=== PATIENT | male | born 1955 | race Caucasian/White ===

== ENCOUNTER 2018-07-30 17:57 | Emergency (ER) | payer OTHER, SELFPAY ==
[2018-07-30 18:05] VITALS: BP 149/72; PULSE 80; RESP 14; TEMP 36.7; O2SAT 100; BMI 35.4
--- NOTE | 2018-07-30 18:13 | ED_ITS ---
HPI - Fall General Chief Complaint: Head Injury Stated Complaint: FALL AND HIT HEAD ON PIANO Time Seen by Provider: 07/30/18 18:05 Source: patient Mode of arrival: ambulatory History of Present Illness HPI Narrative: Patient is a 63-year-old male who presents after a closed head injury. He was standing on a step stool changing a light bulb he fell backwards and hit is head. No loss of consciousness some blurry vision no neck injury no numbness or tingling no vomiting. Related Data Home Medications Medication Instructions Recorded Confirmed aspirin 81 mg PO BID 07/30/18 07/30/18 clopidogrel 1 tab PO DAILY 07/30/18 07/30/18 ezetimibe 1 tab PO DAILY 07/30/18 07/30/18 fenofibrate nanocrystallized 1 tab PO BID 07/30/18 07/30/18 lisinopril 1 tab PO QPM 07/30/18 07/30/18 lisinopril [Prinivil] 40 mg PO QAM 07/30/18 07/30/18 metoprolol tartrate 1 tab PO QAM 07/30/18 07/30/18 metoprolol tartrate 1 tab PO QPM 07/30/18 07/30/18 rabeprazole [Aciphex] 1 tab PO QAM 07/30/18 07/30/18 Review of Systems Review of Systems GENERAL: Denies chills, fatigue, malaise, fever, sweats, travel HEENT: Denies sinus pain, ear pain, sore throat, difficulty swallowing, neck pain RESPIRATORY: Denies dyspnea, cough, wheezing, hemoptysis, sputum. CARDIOVASCULAR: Denies chest pain, palpitations, orthopnea, edema GASTROINTESTINAL: Denies nausea, vomiting, abdominal pain, diarrhea, constipation, melena. : Denies dysuria, frequency, incontinence, hematuria, urinary retention, flank pain. MUSCULOSKELETAL: Denies weakness, joint pain, or bony pain SKIN: Head laceration NEUROLOGIC: See HPI, denies confusion, dizziness, LOC PSYCHIATRIC: No concerning psychosocial issues. 12 point review of systems is negative except for those stated above and HPI Exam Initial Vital Signs Initial Vital Signs: Vital Signs Temperature 98.0 F 07/30/18 18:05 Pulse Rate 80 07/30/18 18:05 Respiratory Rate 14 07/30/18 18:05 Blood Pressure 149/72 H 07/30/18 18:05 Pulse Oximetry 100 07/30/18 18:05 GENERAL: Well-appearing, well-nourished and in no acute distress. HEENT: Head atraumatic left-sided temporal laceration no depressions no crepitation ,EOMI, pupils reactive, NECK: No cervical tenderness no step-offs full range of motion CARDIOVASCULAR: Regular rate and rhythm without murmurs, rubs or gallops. RESPIRATORY: Breath sounds equal bilaterally, no wheezes rales or rhonchi. ABDOMEN: Soft, nontender. Normoactive bowel sounds all 4 quadrants. No guarding or rebound. EXTREMITIES: Normal range of motion, no clubbing or edema. Neurovascularly intact NEUROLOGICAL: Alert and oriented x4.Normal gait and speech. Cranial nerves II through XII grossly intact. Good [id number]-st-[id number], good ehgo-[id number]-tmfp, strength equal bilaterally, no dysarthria or aphasia, sensation in tact to soft touch bilaterally, no visual changes, no facial droop. Radial ulnar and median nerves intact bilaterally SKIN: Warm, dry, no laceration, no petechiae, no rashes or lesions. [facility] Medical History CVA (cerebral vascular accident) (Acute) Coronary artery disease (Acute) Social History Smoking Status: Never smoker Procedures Laceration Repair Laceration 1: Site: scalp Side (If applicable): left Size (cm): 2 Description: linear Depth: simple, single layer Pre-repair: wound explored, irrigated extensively and deep structures intact Skin layer closed with: other (cecile#2) Course Orders Ordered: ED Orders 07/30/18 18:11 CT head/brain wo con Stat Vital Signs - 8 hr 07/30/18 18:05 07/30/18 19:00 Temperature 98.0 F 98.2 F Pulse Rate 80 81 Respiratory Rate 14 17 Blood Pressure 149/72 H Blood Pressure [Left Arm] 145/73 H Pulse Oximetry 100 97 MDM - Fall Imaging Data CT scan - head: Radiologist's impression: PROCEDURE: CT HEAD/BRAIN WO CON INDICATIONS: fall on ASA and plavix TECHNIQUE: Noncontrast 4.5 mm thick angled axial sections acquired from the foramen magnum to the vertex, with coronal and sagittal reformats. For radiation dose reduction, the following was used: automated exposure control, adjustment of mA and/or kV according to patient size. COMPARISON: None. FINDINGS: Image quality: Excellent. CSF spaces: Basal cisterns are patent. No extra-axial fluid collections. Ventricles are normal in size and shape. Brain: No midline shift. No intracranial masses or hemorrhage. Deng-white matter interface is normal. Skull and face: Calvarium and visualized facial bones are intact, without suspicious lesions. Sinuses: Visualized sinuses and mastoids are clear. IMPRESSION: Normal for age, source of current pain after trauma symptoms is not seen. Dictated by: Dennis Maldonado M.D. on 07/30/2018 at 18:33 Discharge Plan Departure Patient Disposition: Home Clinical Impression: Closed head injury, Laceration of head Discharge Date/Time: 07/30/18 19:11 Interventions: ED Discharge Assessment Last Done: 07/30/18 19:10 Instructions: DI for Laceration Repair -- [place], Closed Head Injury Activity Restrictions/Additional Instructions: *You have been diagnosed with head laceration, closed head injury *What to do: Have cecile removed in 5-7 days either by walk-in clinic, primary doctor or the emergency department. *Continue to take medications as directed -Tylenol 650 mg every 4-6 hours as needed pain *Follow up with your primary care provider in 2-3 days *Return to ER if you should have persistent vomiting, increasing headache, redness, pus, swelling or any new, worsening or concerning symptoms Prescriptions: No Action rabeprazole [Aciphex] 20 mg tablet,delayed release (DR/EC) 1 tab PO QAM RF: 0 lisinopril 20 mg tablet 1 tab PO QPM RF: 0 clopidogrel 75 mg tablet 1 tab PO DAILY RF: 0 aspirin 81 mg Tablet,Delayed Release (Dr/Ec) 81 mg PO BID RF: 0 metoprolol tartrate 50 mg tablet 1 tab PO QAM RF: 0 ezetimibe 10 mg tablet 1 tab PO DAILY RF: 0 metoprolol tartrate 25 mg tablet 1 tab PO QPM RF: 0 fenofibrate nanocrystallized 48 mg tablet 1 tab PO BID RF: 0 lisinopril [Prinivil] 20 MG tablet 40 mg PO QAM RF: 0 Referrals: Raymond English MD [Primary Care Provider] -
[2018-07-30 19:00] VITALS: BP 145/73; PULSE 81; RESP 17; TEMP 36.8; O2SAT 97
== END 2018-07-30 19:11 | disposition home or self-care (01) ==
PROVIDERS: Emergency Provider Emergency Medicine; Family Provider Family Medicine; PCP Family Medicine
DX: S09.90XA Unspecified injury of head, initial encounter (principal); S01.01XA Laceration without foreign body of scalp, initial encounter; W19.XXXA Unspecified fall, initial encounter
CPT/HCPCS: 12001; 70450; 99282; 99284

== ENCOUNTER → 2020-08-19 16:08 | Outpatient (CLI) | payer OTHER, SELFPAY ==
[2020-08-19] MEDS: COVID-19 VACC #1, MRNA(MOD) 100 MCG/0.5 ML VIAL IM (16:19)
== END ==
PROVIDERS: Visit Provider Internal Medicine
DX: Z23 Encounter for immunization (principal)
CPT/HCPCS: 0011A; 91301

== ENCOUNTER → 2020-09-16 12:17 | Outpatient (CLI) | payer OTHER, SELFPAY ==
[2020-09-16] MEDS: COVID-19 VACC #2, MRNA(MOD) 100 MCG/0.5 ML VIAL IM (12:38)
== END ==
PROVIDERS: Visit Provider Internal Medicine
DX: Z23 Encounter for immunization (principal)
CPT/HCPCS: 0012A; 91301

== ENCOUNTER → 2021-03-15 15:10 | Outpatient (CLI) | payer OTHER, SELFPAY ==
[2021-03-15 15:55] LABS: Alanine Aminotransferase 25 IU/L (<50); Albumin 4.1 g/dL (3.5-5.0); Albumin Globulin Ratio 1.3 (1.0-2.8); Alkaline Phosphatase 79 U/L (38-126); Aspartate Aminotransferase 47 IU/L (17-59); BUN Creatinine Ratio 11.1 (6-22); Bilirubin Total 0.7 mg/dL (0.2-1.3); Blood Urea Nitrogen 12 mg/dL (9-20); Calcium 9.6 mg/dL (8.4-10.2); Carbon Dioxide 28 mmol/L (22-32); Chloride 102 mmol/L (98-107); Cholesterol 200 mg/dL (140-199); Estimated Glomerular Filt Rate > 60.0 mL/min (>60); Globulin 3.1 g/dL (1.7-4.1); Glucose 125 mg/dL (80-110); HDL Cholesterol 61 mg/dL (40-60); HEMOLYSIS < 15 (0-50); LDL Cholesterol Calculated 108 mg/dL (<100); Potassium 3.8 mmol/L (3.4-5.1); Sodium 138 mmol/L (137-145); Total Protein 7.2 g/dL (6.3-8.2); Triglycerides 154 mg/dL (35-150)
[2021-03-15 16:25] LABS: Prostate Specific Antigen Scrn 0.503 ng/mL (0.1-4.0)
== END ==
PROVIDERS: PCP Internal Medicine; Referring Provider Internal Medicine; Visit Provider Internal Medicine
DX: E78.2 Mixed hyperlipidemia (principal); I10 Essential (primary) hypertension; I25.10 Atherosclerotic heart disease of native coronary artery without angina pectoris; Z12.5 Encounter for screening for malignant neoplasm of prostate
CPT/HCPCS: 36415; 80053; 80061; G0103

== ENCOUNTER → 2021-06-02 11:41 | Outpatient (CLI) | payer OTHER, SELFPAY ==
[2021-06-02] MEDS: COVID-19 VACC #3, MRNA(MOD) 50 MCG/0.25 ML VIAL IM (11:48)
== END ==
PROVIDERS: PCP Internal Medicine; Visit Provider Internal Medicine
DX: Z23 Encounter for immunization (principal)
CPT/HCPCS: 0013A; 91301

== ENCOUNTER → 2021-07-20 12:15 | Outpatient (CLI) | payer OTHER, SELFPAY ==
--- NOTE | 2021-07-20 12:16 | DI.MRI.S_ITS ---
PROCEDURE: MR BRAIN (IAC) WWO CON INDICATIONS: Vertigo, ataxia TECHNIQUE: Noncontrast sagittal T1 spin echo, axial FLAIR, axial gradient echo, axial diffusion and ADC through the brain. Axial thin-slice 3D CISS, coronal TruFISP, axial T1 spin echo with fat saturation through the internal auditory canals. After the administration of contrast, thin slice axial and coronal T1 spin echo with fat saturation through the internal auditory canals, and axial T1 spin echo with fat saturation through the brain. COMPARISON: None. FINDINGS: Image quality: Excellent. Cerebellopontine angles: No cerebellopontine angle masses. Inner ear structures appear normally formed. No suspicious enhancement in the internal auditory canal or along the course of the 7th cranial nerve. CSF spaces: Ventricles are normal in size and shape. No extra-axial fluid collections. Basal cisterns are patent. Brain: No intracranial bleeds or mass effects. There is mild, diffuse cerebral volume loss. There are moderate to severe periventricular and subcortical white matter chronic microvascular ischemic changes. Deng-white matter interface is intact. No abnormal intracranial enhancement. Diffusion weighted images demonstrate no acute ischemic insults. Brainstem appears normal. Normal intravascular flow voids are present. Dural sinuses demonstrate normal postcontrast enhancement. Skull and face: Calvarial marrow signal is normal. Orbits appear normal. Sinuses: Severe mucosal thickening noted in the left maxillary sinus and the left ethmoid air cells. Mild mucosal thickening noted in the right maxillary sinus. The mastoids are clear. IMPRESSION: 1. No evidence of vestibular schwannoma. 2. No abnormal intracranial mass or mass effect. 3. No areas of acute or chronic infarction. 4. No suspicious postcontrast enhancement. 5. Severe chronic left maxillary and left ethmoid air cell sinusitis. Mild chronic right maxillary sinusitis. Dictated by: Aletha Amos MD, PhD on 07/20/2021 at 13:48 Approved by: Aletha Amos MD, PhD on 07/20/2021 at 13:51
== END ==
PROVIDERS: PCP Internal Medicine; Referring Provider Internal Medicine; Visit Provider Internal Medicine
DX: J32.8 Other chronic sinusitis (principal); R42 Dizziness and giddiness
CPT/HCPCS: 70553; A9579

== ENCOUNTER → 2021-08-28 12:55 | Outpatient (CLI) | payer OTHER, SELFPAY ==
--- NOTE | 2021-08-28 | DI.CT.S_ITS ---
PROCEDURE: CT SINUS SCREEN WO CON INDICATIONS: Chronic pansinusitis TECHNIQUE: Noncontrast 3.0 mm axial images acquired from the frontal sinuses to the mid-sella, with coronal and sagittal reformats. For radiation dose reduction, the following was used: automated exposure control, adjustment of mA and/or kV according to patient size. COMPARISON: [facility], MR, MR BRAIN (IAC) WWO CON, 07/20/2021, 12:34. [facility], CT, CT HEAD/BRAIN WO CON, 07/30/2018, 18:14. FINDINGS: Image quality: Excellent. Maxillary Sinuses: There is moderate to prominent left maxillary sinus mucosal thickening. Mild mucosal thickening is seen involving the inferior right maxillary sinus. There is demineralization of the medial smith of the maxillary sinuses, left worse than right. There is remodeling with wall thickening seen of the other smith of the left maxillary sinus. Ethmoid Air Cells: Mild mucosal thickening is seen within the ethmoid air cells, particularly on the left posteriorly. There is mild demineralization seen of the ethmoid air cell septations. Sphenoid Sinuses: No bony remodeling or destruction. Sinuses are clear. Frontal Sinuses: No bony remodeling or destruction. Moderate mucosal thickening is seen involving the inferomedial right frontal sinus. Ostiomeatal Complexes: Ostiomeatal complexes are patent, yet there constitutionally narrowed and further narrowed by soft tissue thickening, particularly on the left. There are right-sided Brianna cells. Miscellaneous: Visualized intra-orbital contents are normal. No ryann bullosa or paradoxical turbinate curvature. There is minimal leftward nasal septal deviation. IMPRESSION: Paranasal sinus disease is seen, which is overall worst involving the left maxillary sinus. Areas of bony remodeling are seen, which are consistent with chronic sinusitis. Narrowed ostiomeatal complexes. Brianna air cells are seen on the right. Dictated by: Marcelo Lopez M.D. on 08/28/2021 at 12:51 Approved by: Marcelo Lopez M.D. on 08/28/2021 at 12:54
== END ==
PROVIDERS: PCP Internal Medicine; Referring Provider Otolaryngology; Visit Provider Otolaryngology
DX: J32.4 Chronic pansinusitis (principal); R42 Dizziness and giddiness
CPT/HCPCS: 70486

== ENCOUNTER → 2022-08-01 16:31 | Outpatient (CLI) | payer OTHER, SELFPAY ==
--- NOTE | 2022-08-01 16:32 | DI.MRI.S_ITS ---
PROCEDURE: MR HEAD/BRAIN WO CON INDICATIONS: chronic dizziness/h/o stroke TECHNIQUE: Noncontrast axial T1 spin echo, axial T2 fast spin echo, sagittal and axial FLAIR, coronal T2 fast spin echo, axial gradient echo, axial diffusion and ADC through the brain. COMPARISON: None. FINDINGS: Image quality: Excellent. CSF Spaces: Basal cisterns are patent. No extra-axial fluid collections. Ventricles are normal in size and shape. Brain: No intracranial masses or hemorrhage. Deng/white matter interface is normal. Brainstem appears normal. Diffusion-weighted sequence is unremarkable without evidence of acute infarct. Normal intravascular flow voids are present. Moderate atrophy and white matter chronic ischemic change. Old left thalamic lacunar infarct noted Skull and face: Calvarium has normal marrow signal. Orbits appear normal. Sinuses: Chronic left maxillary mucosal thickening with osseous wall thickening IMPRESSION: Moderate atrophy and chronic ischemic change without acute infarct, hemorrhage or mass lesion. Old left thalamic lacunar infarct contains old blood products. Chronic left maxillary sinus disease Approved by: Ervin Elizalde M.D. on 08/01/2022 at 19:21
== END ==
PROVIDERS: PCP Internal Medicine; Referring Provider Internal Medicine; Visit Provider Internal Medicine
DX: I69.30 Unspecified sequelae of cerebral infarction (principal); R42 Dizziness and giddiness; J32.0 Chronic maxillary sinusitis
CPT/HCPCS: 70551

== ENCOUNTER → 2022-09-07 14:19 | Outpatient (CLI) | payer OTHER, SELFPAY ==
--- NOTE | 2022-09-07 | DI.RAD.S_ITS ---
PROCEDURE: XR THORACIC SPINE 2V INDICATIONS: Low back pain, unspecified TECHNIQUE: 3 views of the thoracic spine were acquired. COMPARISON: None. FINDINGS: Bones: No fractures or dislocations. No suspicious bony lesions. 12 pairs of ribs are noted, and appear intact where visualized. Bridging osteophytes are seen over the upper and middle thirds of the thoracic spine. No compression fracture is associated. Soft tissues: No paravertebral stripe thickening. 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 No fracture or subluxation associated. Dictated by: Dennis Maldonado M.D. on 09/07/2022 at 16:17 Approved by: Dennis Maldonado M.D. on 09/07/2022 at 16:18
--- NOTE | 2022-09-07 | DI.RAD.S_ITS ---
PROCEDURE: XR PELVIS 1-2V INDICATIONS: Low back pain, unspecified TECHNIQUE: 1 view(s) of the pelvis acquired. COMPARISON: None. FINDINGS: Bilateral nonuniform joint space narrowing with associated osteophytosis. Bones: No fractures or dislocations. No suspicious bony lesions. Soft tissues: Visualized bowel gas pattern is normal. No suspicious soft tissue calcifications. IMPRESSION: Mild bilateral hip osteoarthritis. Dictated by: Antonio Valdez M.D. on 09/07/2022 at 15:16 Approved by: Antonio Valdez M.D. on 09/07/2022 at 15:16
--- NOTE | 2022-09-07 | DI.RAD.S_ITS ---
PROCEDURE: XR LUMBAR SPINE 2-3V INDICATIONS: Low back pain, unspecified TECHNIQUE: 3 views of the lumbar spine were acquired. COMPARISON: None. FINDINGS: Bones: 5 bda-ryg-dahankf vertebrae are present. There is normal bony alignment. No vertebral body compression fractures. No suspicious bony lesions. Note is made of moderate degenerative disc disease at L1-L2 and mild degenerative disc disease through the lumbosacral spine and lumbosacral junction more inferiorly. There is progressively greater facet osteoarthritis from L3 through S1, becoming moderately severe at L5-S1. Soft tissues: Overlying bowel gas pattern is normal. No suspicious soft tissue calcifications. IMPRESSION: Mild to moderately severe degenerative disc disease and facet osteoarthritis as discussed in detail by level above. No trauma found, no compression fracture is seen and no subluxation identified. Spinal stenosis may be present at L5-S1. Dictated by: Dennis Maldonado M.D. on 09/07/2022 at 16:16 Approved by: Dennis Maldonado M.D. on 09/07/2022 at 16:17
== END ==
PROVIDERS: PCP Internal Medicine; Referring Provider Chiropractor; Visit Provider Chiropractor
DX: M16.0 Bilateral primary osteoarthritis of hip (principal); M51.34 Other intervertebral disc degeneration, thoracic region; M51.36 Other intervertebral disc degeneration, lumbar region; M51.37 Other intervertebral disc degeneration, lumbosacral region; M47.816 Spondylosis without myelopathy or radiculopathy, lumbar region; M47.817 Spondylosis without myelopathy or radiculopathy, lumbosacral region; M54.50 Low back pain, unspecified
CPT/HCPCS: 72070; 72100; 72170

== ENCOUNTER 2023-03-26 09:48 | Emergency (ER) | payer OTHER, SELFPAY ==
[2023-03-26] VITALS (52 sets, daily range): BP systolic 124–167; BP diastolic 63–95; PULSE 75–101; RESP 13–27; TEMP 36.5; O2SAT 91–98; BMI 32.9
--- NOTE | 2023-03-26 09:49 | DI.CT.S_ITS ---
PROCEDURE: CT HEAD/BRAIN WO CON INDICATIONS: AMS with facial droop TECHNIQUE: Noncontrast 4.5 mm thick angled axial sections acquired from the foramen magnum to the vertex, with coronal and sagittal reformats. For radiation dose reduction, the following was used: automated exposure control, adjustment of mA and/or kV according to patient size. COMPARISON: None. FINDINGS: Image quality: Mild streak artifact can be seen through the skull base. CSF spaces: Basal cisterns are patent. No extra-axial fluid collections. The ventricles are symmetric in size and shape. Brain: No intracranial bleeds or masses. There is cerebral volume loss for age, with resultant ventricular and sulcal prominence. There are periventricular and deep white matter chronic small vessel ischemic changes. There is intracranial internal carotid artery atherosclerosis. Skull and face: Calvarium and visualized facial bones appear intact, without suspicious lesions. Sinuses: There is moderate mucosal thickening within the left maxillary sinus. Mild mucosal thickening is seen elsewhere within the paranasal sinuses. No abnormal fluid is seen within the mastoid air cells. IMPRESSION: Noncontrast head CT within normal limits for age. If there is strong clinical suspicion for an acute stroke, please consider a brain MRI for further evaluation, as it is more sensitive (assuming that there is no contraindication to MRI). Dictated by: Marcelo Lopez M.D. on 03/26/2023 at 9:14 Approved by: Marcelo Lopez M.D. on 03/26/2023 at 9:15
--- NOTE | 2023-03-26 09:53 | DI.CT.S_ITS ---
PROCEDURE: CT ANGIO HEAD AND NECK INDICATIONS: Altered mental status and facial droop TECHNIQUE: After the administration of intravenous contrast, 1 mm thick sections acquired from the aortic arch through the Traer of Gabriel. 3-dimensional xmnwagd-qxozvzxly-nvctixlrkb (MIP) and/or volume rendering reformats were acquired of the central intracranial vasculature and neck separately. For radiation dose reduction, the following was used: automated exposure control, adjustment of mA and/or kV according to patient size. COMPARISON: [facility], CT, CT HEAD/BRAIN WO CON, 03/26/2023, 9:59. [facility], MR, MR HEAD/BRAIN WO CON, 08/01/2022, 16:48. [facility], CT, CT HEAD/BRAIN WO CON, 07/30/2018, 18:14. [facility], CR, XR CHEST 1V, 03/26/2023, 10:09. FINDINGS: Image quality: Diagnostic. BRAIN: CSF spaces: Ventricles are normal in size and shape. Basal cisterns are patent. No extra-axial fluid collections. Brain: No significant abnormality of the brain can be seen. Skull and face: Calvarium and facial bones appear intact, without suspicious lesions. Orbits appear normal. Sinuses: Focal left maxillary sinus disease is seen. Milder paranasal sinus disease is seen elsewhere. HEAD CT ANGIOGRAPHY: Anterior circulation: Intracranial internal carotid arteries are normal in size and flow. The flow within the paired anterior cerebral arteries is normal and symmetric. The flow within the middle cerebral arteries is normal and symmetric. The anterior communicating artery is seen. No aneurysms are seen. Posterior circulation: Note is made of bilateral type origins of the posterior cerebral arteries, with an associated diminutive basilar artery. The flow within the posterior cerebral arteries is normal and symmetric. The distal vertebral arteries are overall small in size, yet otherwise unremarkable. No aneurysms are seen. NECK CT ANGIOGRAPHY: Carotid system: The great vessels demonstrate a conventional anatomy as they arise from the aortic arch. The origins of the common carotid arteries appear patent. The common carotid arteries demonstrate normal caliber and courses. The bifurcation regions demonstrate dense atherosclerotic calcification and irregularity. There is approximately 90% narrowing seen involving the right proximal internal carotid artery. 70-80% narrowing can be seen involving the left proximal internal carotid artery. The more distal internal carotid arteries demonstrate normal course and caliber. Posterior circulation: The origins of the vertebral arteries both appear widely patent. The more superior extracranial portions of both vertebral arteries also demonstrate normal courses and calibers. They join to form a normal appearing basilar artery. Soft tissues: Visualized neck soft tissues demonstrate no suspicious abnormalities. Bones: No suspicious bony lesions. Visualized cervical spine appears normally aligned. At least moderate cervical spine degenerative change can be seen. IMPRESSION: No significant intracranial arterial abnormality is seen. Significant atherosclerotic change can be seen involving the carotid bifurcation regions, with approximately 90% narrowing on the right and 70-80% narrowing on the left. Additional findings: Focal left maxillary sinus disease At least moderate cervical spine degenerative change Note: Case discussed by telephone with Dr. Blair at 9:23 a.m. [place] time on March 26, 2023. Any quantitative measurements of stenosis were performed using NASCET criteria. Dictated by: Marcelo Lopez M.D. on 03/26/2023 at 9:17 Approved by: Marcelo Lopez M.D. on 03/26/2023 at 9:25
--- NOTE | 2023-03-26 09:55 | DI.RAD.S_ITS ---
PROCEDURE: XR CHEST 1V INDICATIONS: Eval for pneumonia TECHNIQUE: One view of the chest was acquired. COMPARISON: [facility], , CHEST 1 VIEW, 07/19/2015, 11:39. FINDINGS: Surgical changes and devices: None. Lungs and pleura: Blunting the left costophrenic angle. Heart size is enlarged, and mild vascular congestion is all accentuated by low lung volumes. Osseous structures normal. Right lung and pleural space clear IMPRESSION: Cardiomegaly and mild vascular congestion, small left pleural effusion associated with minimal left basilar atelectasis and or infiltrate. Low lung volumes Approved by: Ervin Elizalde M.D. on 03/26/2023 at 10:14
[2023-03-26 10:01] LABS: Add Manual Diff / Slide Review NO; Basophils Absolute Auto 100 /uL (0-100); Basophils Percent Auto 0.8 % (0-2); Eosinophils Absolute Auto 100 /uL (0-450); Eosinophils Percent Auto 1.6 % (2-4); Hematocrit 39.7 % (41-53); Hemoglobin 14.2 g/dL (13.5-17.5); Lymphocytes Absolute Auto 1500 /uL (1100-4500); Lymphocytes Percent Auto 22.4 % (25-40); Mean Corpuscular HGB Conc 35.8 % (30-36); Mean Corpuscular Hemoglobin 35.6 PG (26-34); Mean Corpuscular Volume 99.2 fL (80-100); Monocytes Absolute Auto 600 /uL (0-900); Monocytes Percent Auto 9.3 % (3-14); Neutrophils Absolute Auto 4500 /uL (1500-7000); Neutrophils Percent Auto 65.9 % (50-75); Platelet Count 302 X10^3/uL (150-400); Red Cell Distribution Width 13.1 % (11.6-14.8); White Blood Cell Count 6.8 X10^3/uL (4.5-11.0)
--- NOTE | 2023-03-26 10:05 | ED_ITS ---
HPI - General Adult General Chief complaint: Neuro Symptoms/Deficit Stated complaint: L facial droop, weakness Time Seen by Provider: 03/26/23 09:49 Source: patient, family and EMS Mode of arrival: EMS Limitations: no limitations History of Present Illness HPI narrative: 68-year-old male was brought in by EMS for evaluation of weakness and a left- sided facial droop. His last known normal was last evening. He does have a history of a head bleed. Not on anticoagulation. Review his medical record shows that he has had quite a bit of issues with ataxia. Reported by EMS that he was found this morning by his and home health nurse crawling to the bathroom. Is reported by EMS he had a left-sided facial droop. Upon arrival patient went directly to the CT scanner. When I evaluated the patient he was al ert and oriented to person and place. He states that this morning he woke up and had to urinate. He states that he rolled out of bed. He was too weak to make it to the bathroom which is why he was crawling. He states he did not hit his head. He states he went to bed last night feeling fine. His only complaint today is that he is very tired and weak. Related Data Home Medications Medication Instructions Recorded Confirmed aspirin 81 mg tablet,delayed 81 mg PO BID 07/30/18 03/26/23 release evolocumab 420 mg/3.5 mL 420 mg SUBCUT QMONTH 02/06/21 03/26/23 subcutaneous wearable injector (Repatha Pushtronex) psyllium husk [Fiber (psyllium 1 cap PO DAILY 02/06/21 03/26/23 husk)] metoprolol tartrate 25 mg tablet 25 mg PO DAILY 10/23/21 03/26/23 Lactobacillus cap PO DAILY 03/26/23 acidophilus-Bifidobac.animalis 2.5 billion cell capsule (Daily Probiotic) calcium carbonate 500 mg calcium 500 mg PO PRN PRN Heartburn 03/26/23 03/26/23 (1,250 mg) chewable tablet diazepam 5 mg tablet 5 mg PO PRN PRN anxiety 03/26/23 03/26/23 docusate sodium 50 mg tablet 50 mg PO PRN PRN Constipation 03/26/23 03/26/23 lisinopril 20 mg tablet 20 mg PO DAILY 03/26/23 03/26/23 vitamin B complex (B 1 tab PO DAILY 03/26/23 03/26/23 Complex-Vitamin B12 tablet) Previous Rx's Medication Instructions Recorded fenofibrate nanocrystallized 48 mg 48 mg PO BID #180 tabs 10/23/21 tablet nitroglycerin 0.4 mg sublingual 0.4 mg sublingual Q5M PRN chest 07/26/22 tablet pain #90 tabs AcipHex 20 mg tablet,delayed 20 mg PO DAILY #90 tabs 03/21/23 release (rabeprazole) Allergies Allergy/AdvReac Type Severity Reaction Status Date / Time [id number] Reductase AdvReac Severe unknown Verified 09/07/22 13:49 Inhibitor Review of Systems Review of Systems ROS Unobtainable: All systems reviewed & are unremarkable except as noted in HPI and below Patient History Medical History Cerebellar ataxia Coronary artery disease Coronary artery disease involving hoopa coronary artery of hoopa heart without angina pectoris Essential hypertension GERD without esophagitis Irritable bowel syndrome Mixed hyperlipidemia Personal history of stroke with current residual effects (~2005) Surgical History (Updated 02/14/21 @ 07:40 by Uvaldo Cantor MD) H/O heart artery stent (~08/2016) S/P foot surgery (~1966) S/P tonsillectomy (~1962) Social History Smoking Status: Former smoker Smoking Status: Former smoker alcohol intake frequency: 0-2 drinks per day Substance Use Type: does not use Exam Initial Vital Signs Initial Vital Signs: Vital Signs Pulse Rate 82 03/26/23 09:59 Blood Pressure 139/74 03/26/23 09:59 Pulse Oximetry 97 03/26/23 09:59 Const General: comfortable and No ill appearing HENMT Face and sinus: normal facial exam Mouth: No moist mucous membranes (Dry mucous membranes) Eyes Pupils: PERRL Resp Effort & Inspection: normal respiratory effort Auscultation: clear to auscultation bilaterally Cardio Rate: regular rate Rhythm: regular rhythm GI Inspection: normal to inspection and non-distended Palpation: soft Skin General: no rashes or lesions noted Neuro Other: Patient is alert oriented x3. He is able to speak in his speaking clearly. He does follow commands. Has a GCS of 15. When asked to perform the NIH tasks patient states he could not as he was feeling so weak. He states he could not smile. He did squeeze with both of his hands but stated that he was too weak to lift his arms up off the bed. It was also too weak to lift his legs up off the bed. He did withdraw to painful stimuli. His symptoms are equal bilateral. Extrem Other: No gross deformities Scores GCS Christiano coma scale eye opening: Spontaneous [place] coma scale verbal response: Orientated Christiano coma scale motor response: Obey commands Christiano coma scale total score: 15 Course Orders Ordered: ED Orders 03/26/23 09:49 CT head/brain wo con Stat 03/26/23 09:51 Acetaminophen Stat Complete Blood Count AUTO DIFF Stat Comprehensive Metabolic Panel Stat Ethanol (ETOH) Stat Lipase Stat PTT Partial Thromboplastin Chetan Stat Prothrombin Time INR Stat Salicylate Stat Troponin & CK Cardiac Panel Stat 03/26/23 09:53 CT angio head and neck Stat 03/26/23 09:55 XR chest 1V Stat EKG-12 Lead Stat 03/26/23 10:13 Respiratory Panel (Film Array) Stat 03/26/23 11:48 MR head/brain wo con Stat 03/26/23 12:36 [place] [facility] [place] [facility] Stat 03/26/23 12:37 [place] [facility] [place] Stat 03/26/23 13:30 Urine Drug Screen, Rapid Stat Discontinued Medications Diazepam (Diazepam 10 Mg/2 Ml Syringe) 2 mg IV NOW ONE Stop: 03/26/23 12:46 Last Admin: 03/26/23 12:55 Dose: Not Given Documented By: NR Sodium Chloride (Normal Saline 0.9%) 1,000 mls @ 1,000 mls/hr IV BOLUS ONE Stop: 03/26/23 11:24 Last Infusion: 03/26/23 11:49 Dose: 0 mls/hr Documented By: Admin: 03/26/23 10:44 Dose: 1,000 mls/hr Documented By: NR Vital Signs Vital signs: Vital Signs - 8 hr 03/26/23 10:00 03/26/23 09:59 03/26/23 09:59 Temperature 97.7 F Pulse Rate 80 82 Respiratory Rate 21 Blood Pressure 139/74 139/74 Pulse Oximetry 97 97 Oxygen Delivery Method Nasal Cannula Oxygen Flow Rate 6 03/26/23 10:00 03/26/23 10:00 03/26/23 10:05 Temperature Pulse Rate 80 Respiratory Rate 20 Blood Pressure 130/66 130/69 Pulse Oximetry 97 Oxygen Delivery Method Oxygen Flow Rate 03/26/23 10:05 03/26/23 10:10 03/26/23 10:10 Temperature Pulse Rate 83 82 Respiratory Rate 22 20 Blood Pressure 130/72 Pulse Oximetry 97 97 Oxygen Delivery Method Oxygen Flow Rate 03/26/23 10:14 03/26/23 10:15 03/26/23 10:15 Temperature Pulse Rate 80 83 Respiratory Rate 17 20 Blood Pressure 141/72 H Pulse Oximetry 97 96 Oxygen Delivery Method Oxygen Flow Rate 03/26/23 10:20 03/26/23 10:20 03/26/23 10:25 Temperature Pulse Rate 80 Respiratory Rate 19 Blood Pressure 130/70 133/71 Pulse Oximetry 96 Oxygen Delivery Method Oxygen Flow Rate 03/26/23 10:25 03/26/23 10:30 03/26/23 10:30 Temperature Pulse Rate 79 80 Respiratory Rate 20 21 Blood Pressure 131/65 Pulse Oximetry 95 95 Oxygen Delivery Method Oxygen Flow Rate 03/26/23 10:35 03/26/23 10:35 03/26/23 10:40 Temperature Pulse Rate 79 78 Respiratory Rate 18 19 Blood Pressure 129/67 Pulse Oximetry 97 95 Oxygen Delivery Method Oxygen Flow Rate 03/26/23 10:40 03/26/23 10:45 03/26/23 10:45 Temperature Pulse Rate 79 Respiratory Rate 19 Blood Pressure 124/68 124/66 Pulse Oximetry 95 Oxygen Delivery Method Oxygen Flow Rate 03/26/23 10:50 03/26/23 10:50 03/26/23 10:55 Temperature Pulse Rate 78 Respiratory Rate 17 Blood Pressure 126/66 129/67 Pulse Oximetry 94 Oxygen Delivery Method Oxygen Flow Rate 03/26/23 10:55 03/26/23 11:00 03/26/23 11:00 Temperature Pulse Rate 78 78 Respiratory Rate 19 19 Blood Pressure 132/69 Pulse Oximetry 95 96 Oxygen Delivery Method Oxygen Flow Rate 03/26/23 11:05 03/26/23 11:05 03/26/23 11:10 Temperature Pulse Rate 82 Respiratory Rate 27 H Blood Pressure 137/71 138/73 Pulse Oximetry 98 Oxygen Delivery Method Oxygen Flow Rate 03/26/23 11:10 03/26/23 11:15 03/26/23 11:15 Temperature Pulse Rate 77 79 Respiratory Rate 23 23 Blood Pressure 138/75 Pulse Oximetry 96 95 Oxygen Delivery Method Oxygen Flow Rate 03/26/23 11:20 03/26/23 11:20 03/26/23 11:25 Temperature Pulse Rate 76 Respiratory Rate 20 Blood Pressure 130/63 136/73 Pulse Oximetry 96 Oxygen Delivery Method Oxygen Flow Rate 03/26/23 11:25 03/26/23 11:30 03/26/23 11:30 Temperature Pulse Rate 78 83 Respiratory Rate 22 21 Blood Pressure 153/75 H Pulse Oximetry 96 95 Oxygen Delivery Method Oxygen Flow Rate 03/26/23 11:35 03/26/23 11:35 03/26/23 11:40 Temperature Pulse Rate 81 Respiratory Rate 20 Blood Pressure 150/86 H 156/95 H Pulse Oximetry 98 Oxygen Delivery Method Oxygen Flow Rate 03/26/23 11:40 03/26/23 11:45 03/26/23 11:45 Temperature Pulse Rate 84 84 Respiratory Rate 14 17 Blood Pressure 165/82 H Pulse Oximetry 98 98 Oxygen Delivery Method Oxygen Flow Rate 03/26/23 11:51 03/26/23 11:51 03/26/23 11:55 Temperature Pulse Rate 78 Respiratory Rate 18 Blood Pressure 142/70 H 139/65 Pulse Oximetry 98 Oxygen Delivery Method Oxygen Flow Rate 03/26/23 11:55 03/26/23 12:00 03/26/23 12:00 Temperature Pulse Rate 76 77 Respiratory Rate 17 19 Blood Pressure 130/69 Pulse Oximetry 97 96 Oxygen Delivery Method Oxygen Flow Rate 03/26/23 12:05 03/26/23 12:05 03/26/23 12:10 Temperature Pulse Rate 75 Respiratory Rate 17 Blood Pressure 133/68 146/75 H Pulse Oximetry 96 Oxygen Delivery Method Oxygen Flow Rate 03/26/23 12:10 03/26/23 12:15 03/26/23 12:15 Temperature Pulse Rate 82 78 Respiratory Rate 13 16 Blood Pressure 150/81 H Pulse Oximetry 97 95 Oxygen Delivery Method Oxygen Flow Rate 03/26/23 12:20 03/26/23 12:20 03/26/23 12:24 Temperature Pulse Rate 82 79 Respiratory Rate 25 H 20 Blood Pressure 149/84 H Pulse Oximetry 96 97 Oxygen Delivery Method Oxygen Flow Rate 03/26/23 12:25 03/26/23 12:25 03/26/23 12:30 Temperature Pulse Rate 75 Respiratory Rate 18 Blood Pressure 141/82 H 161/86 H Pulse Oximetry 97 Oxygen Delivery Method Oxygen Flow Rate 03/26/23 12:30 03/26/23 12:35 03/26/23 12:35 Temperature Pulse Rate 79 82 Respiratory Rate 19 18 Blood Pressure 150/79 H Pulse Oximetry 96 94 Oxygen Delivery Method Oxygen Flow Rate 03/26/23 12:40 03/26/23 12:40 03/26/23 12:45 Temperature Pulse Rate 83 Respiratory Rate 22 Blood Pressure 147/81 H 167/86 H Pulse Oximetry 93 Oxygen Delivery Method Oxygen Flow Rate 03/26/23 12:45 03/26/23 12:50 03/26/23 12:50 Temperature Pulse Rate 81 81 Respiratory Rate 22 18 Blood Pressure 151/77 H Pulse Oximetry 94 93 Oxygen Delivery Method Oxygen Flow Rate 03/26/23 13:35 03/26/23 13:36 03/26/23 13:36 Temperature Pulse Rate 81 83 Respiratory Rate Blood Pressure 128/77 Pulse Oximetry 93 93 Oxygen Delivery Method Oxygen Flow Rate 03/26/23 13:40 03/26/23 13:40 03/26/23 13:45 Temperature Pulse Rate 81 Respiratory Rate Blood Pressure 138/76 146/79 H Pulse Oximetry 93 Oxygen Delivery Method Oxygen Flow Rate 03/26/23 13:45 03/26/23 13:50 03/26/23 13:50 Temperature Pulse Rate 89 81 Respiratory Rate Blood Pressure 153/83 H Pulse Oximetry 94 93 Oxygen Delivery Method Oxygen Flow Rate 03/26/23 13:55 03/26/23 13:55 03/26/23 14:08 Temperature Pulse Rate 81 79 Respiratory Rate Blood Pressure 152/80 H Pulse Oximetry 93 94 Oxygen Delivery Method Oxygen Flow Rate 03/26/23 14:09 03/26/23 14:09 03/26/23 14:30 Temperature Pulse Rate 84 Respiratory Rate Blood Pressure 146/69 H 129/66 Pulse Oximetry 93 Oxygen Delivery Method Oxygen Flow Rate 03/26/23 14:30 03/26/23 15:00 03/26/23 15:00 Temperature Pulse Rate 79 80 Respiratory Rate Blood Pressure 130/67 Pulse Oximetry 93 91 Oxygen Delivery Method Oxygen Flow Rate 03/26/23 15:30 03/26/23 15:30 03/26/23 16:00 Temperature Pulse Rate 79 Respiratory Rate Blood Pressure 142/73 H 152/77 H Pulse Oximetry 91 Oxygen Delivery Method Oxygen Flow Rate 03/26/23 16:00 03/26/23 16:30 03/26/23 16:30 Temperature Pulse Rate 86 86 Respiratory Rate Blood Pressure 162/81 H Pulse Oximetry 92 94 Oxygen Delivery Method Oxygen Flow Rate 03/26/23 17:55 Temperature Pulse Rate 101 H Respiratory Rate Blood Pressure 163/92 H Pulse Oximetry 94 Oxygen Delivery Method Room Air Oxygen Flow Rate Medical Decision Making Medical Records Medical records reviewed: Yes I reviewed the patient's medical records. Lab Data Lab results reviewed: Yes I reviewed the patient's lab results. 03/26/23 09:51 03/26/23 09:51 Labs: Lab Results 03/26/23 03/26/23 03/26/23 Range/Units 09:51 09:51 09:51 WBC 6.8 (4.5-11.0) X10^3/uL RBC 4.00 L (4.5-5.9) X10^6/uL Hgb 14.2 (13.5-17.5) g/dL Hct 39.7 L (41-53) % MCV 99.2 (80-100) fL MCH 35.6 H (26-34) PG MCHC 35.8 (30-36) % RDW 13.1 (11.6-14.8) % Plt Count 302 (150-400) X10^3/uL Neut % (Auto) 65.9 (50-75) % Lymph % (Auto) 22.4 L (25-40) % Jenkins % (Auto) 9.3 (3-14) % Eos % (Auto) 1.6 L (2-4) % Baso % (Auto) 0.8 (0-2) % Neut # (Auto) 4500 (7977-5843) /uL Lymph # (Auto) 1500 (7906-4709) /uL Jenkins # (Auto) 600 (0-900) /uL Eos # (Auto) 100 (0-450) /uL Baso # (Auto) 100 (0-100) /uL PT 11.9 (10.1-12.7) SECONDS INR 1.0 (0.9-1.3) APTT 28 (26-36) SECONDS Sodium 138 (137-145) mmol/L Potassium 3.9 (3.4-5.1) mmol/L Chloride 101 (98-107) mmol/L Carbon Dioxide 23 (22-32) mmol/L BUN 9 (9-20) mg/dL Creatinine 0.89 (0.66-1.25) mg/dL Estimated GFR > 60 (>60) mL/min BUN/Creatinine Ratio 10.1 (6-22) Glucose 139 H (80-110) mg/dL Calcium 9.0 (8.4-10.2) mg/dL Total Bilirubin 0.6 (0.2-1.3) mg/dL AST 60 H (17-59) IU/L ALT 38 (<50) IU/L Alkaline Phosphatase 62 (38-126) U/L Total Creatine Kinase (55-170) U/L Troponin I (0.01-0.034) ng/mL Total Protein 7.3 (6.3-8.2) g/dL Albumin 4.2 (3.5-5.0) g/dL Globulin 3.1 (1.7-4.1) g/dL Albumin/Globulin Ratio 1.4 (1.0-2.8) Lipase 49 (23-300) U/L Salicylates (<20) mg/dL U Opiates 300ng/mL cut (Negative) Ur Oxycodone Screen (Negative) Urine Methadone Screen (Negative) Acetaminophen (10-30) ug/mL Ur Barbiturates Screen (Negative) U Tricyclic Antidepress (Negative) Ur Phencyclidine Scrn (Negative) Ur Amphetamines Screen (Negative) U Methamphetamines Scrn (Negative) Ur MDMA Scrn (Ecstasy) (Negative) U Benzodiazepines Scrn (Negative) Urine Cocaine Screen (Negative) U Marijuana (THC) Screen (Negative) Ethyl Alcohol 53 H ( - 10) mg/dL Chlamy pneumoniae PCR (Not Detect) Adenovirus (PCR) (Not Detect) B. pertussis DNA (PCR) (Not Detecte) B.parapertussis DNA PCR (Not Detecte) Coronavirus OC43 (PCR) (Not Detect) Coronavirus HKU1 (PCR) (Not Detect) Coronavirus 229E (PCR) (Not Detect) SARS-CoV-2 (PCR) (Not Detecte) Coronavirus NL63 (PCR) (Not Detect) Human Metapneumovir PCR (Not Detect) Influenza Type A (PCR) (Not Detect) Influenza Type B (PCR) (Not Detect) M. pneumoniae (PCR) (Not Detect) Parainfluenza 1 (PCR) (Not Detect) Parainfluenza 2 (PCR) (Not Detect) Parainfluenza 3 (PCR) (Not Detect) Parainfluenza 4 (PCR) (Not Detect) RSV (PCR) (Not Detect) Entero/Rhino (PCR) (Not Detect) 03/26/23 03/26/23 03/26/23 Range/Units 09:51 09:51 10:13 WBC (4.5-11.0) X10^3/uL RBC (4.5-5.9) X10^6/uL Hgb (13.5-17.5) g/dL Hct (41-53) % MCV (80-100) fL MCH (26-34) PG MCHC (30-36) % RDW (11.6-14.8) % Plt Count (150-400) X10^3/uL Neut % (Auto) (50-75) % Lymph % (Auto) (25-40) % Jenkins % (Auto) (3-14) % Eos % (Auto) (2-4) % Baso % (Auto) (0-2) % Neut # (Auto) (9861-6208) /uL Lymph # (Auto) (7238-3039) /uL Jenkins # (Auto) (0-900) /uL Eos # (Auto) (0-450) /uL Baso # (Auto) (0-100) /uL PT (10.1-12.7) SECONDS INR (0.9-1.3) APTT (26-36) SECONDS Sodium (137-145) mmol/L Potassium (3.4-5.1) mmol/L Chloride (98-107) mmol/L Carbon Dioxide (22-32) mmol/L BUN (9-20) mg/dL Creatinine (0.66-1.25) mg/dL Estimated GFR (>60) mL/min BUN/Creatinine Ratio (6-22) Glucose (80-110) mg/dL Calcium (8.4-10.2) mg/dL Total Bilirubin (0.2-1.3) mg/dL AST (17-59) IU/L ALT (<50) IU/L Alkaline Phosphatase (38-126) U/L Total Creatine Kinase 511 H (55-170) U/L Troponin I < 0.012 (0.01-0.034) ng/mL Total Protein (6.3-8.2) g/dL Albumin (3.5-5.0) g/dL Globulin (1.7-4.1) g/dL Albumin/Globulin Ratio (1.0-2.8) Lipase (23-300) U/L Salicylates < 1.0 (<20) mg/dL U Opiates 300ng/mL cut (Negative) Ur Oxycodone Screen (Negative) Urine Methadone Screen (Negative) Acetaminophen < 10 (10-30) ug/mL Ur Barbiturates Screen (Negative) U Tricyclic Antidepress (Negative) Ur Phencyclidine Scrn (Negative) Ur Amphetamines Screen (Negative) U Methamphetamines Scrn (Negative) Ur MDMA Scrn (Ecstasy) (Negative) U Benzodiazepines Scrn (Negative) Urine Cocaine Screen (Negative) U Marijuana (THC) Screen (Negative) Ethyl Alcohol ( - 10) mg/dL Chlamy pneumoniae PCR Not detected (Not Detect) Adenovirus (PCR) Not detected (Not Detect) B. pertussis DNA (PCR) Not detected (Not Detecte) B.parapertussis DNA PCR Not detected (Not Detecte) Coronavirus OC43 (PCR) Not detected (Not Detect) Coronavirus HKU1 (PCR) Not detected (Not Detect) Coronavirus 229E (PCR) Not detected (Not Detect) SARS-CoV-2 (PCR) Not detected (Not Detecte) Coronavirus NL63 (PCR) Not detected (Not Detect) Human Metapneumovir PCR Not detected (Not Detect) Influenza Type A (PCR) Not detected (Not Detect) Influenza Type B (PCR) Not detected (Not Detect) M. pneumoniae (PCR) Not detected (Not Detect) Parainfluenza 1 (PCR) Not detected (Not Detect) Parainfluenza 2 (PCR) Not detected (Not Detect) Parainfluenza 3 (PCR) Not detected (Not Detect) Parainfluenza 4 (PCR) Not detected (Not Detect) RSV (PCR) Not detected (Not Detect) Entero/Rhino (PCR) Not detected (Not Detect) 03/26/23 Range/Units 13:30 WBC (4.5-11.0) X10^3/uL RBC (4.5-5.9) X10^6/uL Hgb (13.5-17.5) g/dL Hct (41-53) % MCV (80-100) fL MCH (26-34) PG MCHC (30-36) % RDW (11.6-14.8) % Plt Count (150-400) X10^3/uL Neut % (Auto) (50-75) % Lymph % (Auto) (25-40) % Jenkins % (Auto) (3-14) % Eos % (Auto) (2-4) % Baso % (Auto) (0-2) % Neut # (Auto) (3671-3709) /uL Lymph # (Auto) (3182-6532) /uL Jenkins # (Auto) (0-900) /uL Eos # (Auto) (0-450) /uL Baso # (Auto) (0-100) /uL PT (10.1-12.7) SECONDS INR (0.9-1.3) APTT (26-36) SECONDS Sodium (137-145) mmol/L Potassium (3.4-5.1) mmol/L Chloride (98-107) mmol/L Carbon Dioxide (22-32) mmol/L BUN (9-20) mg/dL Creatinine (0.66-1.25) mg/dL Estimated GFR (>60) mL/min BUN/Creatinine Ratio (6-22) Glucose (80-110) mg/dL Calcium (8.4-10.2) mg/dL Total Bilirubin (0.2-1.3) mg/dL AST (17-59) IU/L ALT (<50) IU/L Alkaline Phosphatase (38-126) U/L Total Creatine Kinase (55-170) U/L Troponin I (0.01-0.034) ng/mL Total Protein (6.3-8.2) g/dL Albumin (3.5-5.0) g/dL Globulin (1.7-4.1) g/dL Albumin/Globulin Ratio (1.0-2.8) Lipase (23-300) U/L Salicylates (<20) mg/dL U Opiates 300ng/mL cut Negative (Negative) Ur Oxycodone Screen Negative (Negative) Urine Methadone Screen Negative (Negative) Acetaminophen (10-30) ug/mL Ur Barbiturates Screen Negative (Negative) U Tricyclic Antidepress Negative (Negative) Ur Phencyclidine Scrn Negative (Negative) Ur Amphetamines Screen Negative (Negative) U Methamphetamines Scrn Negative (Negative) Ur MDMA Scrn (Ecstasy) Negative (Negative) U Benzodiazepines Scrn Positive H (Negative) Urine Cocaine Screen Negative (Negative) U Marijuana (THC) Screen Positive H (Negative) Ethyl Alcohol ( - 10) mg/dL Chlamy pneumoniae PCR (Not Detect) Adenovirus (PCR) (Not Detect) B. pertussis DNA (PCR) (Not Detecte) B.parapertussis DNA PCR (Not Detecte) Coronavirus OC43 (PCR) (Not Detect) Coronavirus HKU1 (PCR) (Not Detect) Coronavirus 229E (PCR) (Not Detect) SARS-CoV-2 (PCR) (Not Detecte) Coronavirus NL63 (PCR) (Not Detect) Human Metapneumovir PCR (Not Detect) Influenza Type A (PCR) (Not Detect) Influenza Type B (PCR) (Not Detect) M. pneumoniae (PCR) (Not Detect) Parainfluenza 1 (PCR) (Not Detect) Parainfluenza 2 (PCR) (Not Detect) Parainfluenza 3 (PCR) (Not Detect) Parainfluenza 4 (PCR) (Not Detect) RSV (PCR) (Not Detect) Entero/Rhino (PCR) (Not Detect) Urine Dip Bedside Urine Glucose Negative Bedside Urine Bilirubin - Negative Bedside Urine Ketone - Negative Urine Specific [place] 1.015 Bedside Urine Occult Blood - Negative Bedside Urine pH 5.5 Bedside Urine Protein - Negative Bedside Urine Urobilinogen - Negative Bedside Urine Nitrite - Negative Bedside Urine Leukocytes - Negative Esterase Point of care testing: Urine Dip Bedside Urine Glucose Negative Bedside Urine Bilirubin - Negative Bedside Urine Ketone - Negative Urine Specific [place] 1.015 Bedside Urine Occult Blood - Negative Bedside Urine pH 5.5 Bedside Urine Protein - Negative Bedside Urine Urobilinogen - Negative Bedside Urine Nitrite - Negative Bedside Urine Leukocytes - Negative Esterase Imaging Data CTA - brain/neck: Radiologist's Impression: PROCEDURE:? CT ANGIO HEAD AND NECK ? INDICATIONS:? Altered mental status and facial droop ? TECHNIQUE:? After the administration of intravenous contrast, 1 mm thick sections acquired from the aortic arch through the [place] of [place].? 3-dimensional nparxjo-vqbapdsnf-gzfhacppmq (MIP) and/or volume rendering reformats were acquired of the central intracranial vasculature and neck separately. For radiation dose reduction, the following was used:? automated exposure control, adjustment of mA and/or kV according to patient size.? ? COMPARISON:? [facility], CT, CT HEAD/BRAIN WO CON, 03/26/2023, 9:59.? [facility], MR, MR HEAD/BRAIN WO CON, 08/01/2022, 16:48.? [facility], CT, CT HEAD/BRAIN WO CON, 07/30/2018, 18:14.? [facility], CR, XR CHEST 1V, 03/26/2023, 10:09.? ? FINDINGS:? Image quality:? Diagnostic.? ? BRAIN:? CSF spaces:? Ventricles are normal in size and shape.? Basal cisterns are patent.? No extra-axial fluid collections.? ? Brain:? No significant abnormality of the brain can be seen. ? ? ? Skull and face:? Calvarium and facial bones appear intact, without suspicious le sions.? Orbits appear normal.? ? Sinuses:? Focal left maxillary sinus disease is seen.? Milder paranasal sinus disease is seen elsewhere. ? HEAD CT ANGIOGRAPHY:? Anterior circulation:? Intracranial internal carotid arteries are normal in size and flow.? The flow within the paired anterior cerebral arteries is normal and symmetric.? The flow within the middle cerebral arteries is normal and symmetric.? The anterior communicating artery is seen.? No aneurysms are seen.? ? Posterior circulation:? Note is made of bilateral type origins of the posterior cerebral arteries, with an associated diminutive basilar artery.? The flow within the posterior cerebral arteries is normal and symmetric.? The distal vertebral arteries are overall small in size, yet otherwise unremarkable.? No aneurysms are seen.? ? NECK CT ANGIOGRAPHY:? Carotid system:? The great vessels demonstrate a conventional anatomy as they arise from the aortic arch.? The origins of the common carotid arteries appear patent.? The common carotid arteries demonstrate normal caliber and courses.? The bifurcation regions demonstrate dense atherosclerotic calcification and irregularity.? There is approximately 90% narrowing seen involving the right proximal internal carotid artery.? 70-80% narrowing can be seen involving the left proximal internal carotid artery.? The more distal internal carotid arteries demonstrate normal course and caliber.? ? Posterior circulation:? The origins of the vertebral arteries both appear widely patent.? The more superior extracranial portions of both vertebral arteries also demonstrate normal courses and calibers.? They join to form a normal appearing basilar artery.? ? Soft tissues:? Visualized neck soft tissues demonstrate no suspicious abnormalities.? ? Bones:? No suspicious bony lesions.? Visualized cervical spine appears normally aligned.? At least moderate cervical spine degenerative change can be seen. ? ? IMPRESSION:? No significant intracranial arterial abnormality is seen.? ? Significant atherosclerotic change can be seen involving the carotid bifurcation regions, with approximately 90% narrowing on the right and 70-80% narrowing on the left. ? ? ? Additional findings:? Focal left maxillary sinus disease At least moderate cervical spine degenerative change Chest x-ray: Radiologist's Impression: PROCEDURE:? XR CHEST 1V ? INDICATIONS:? Eval for pneumonia ? TECHNIQUE:? One view of the chest was acquired.? ? COMPARISON:? [facility], CHEST 1 VIEW, 07/19/2015, 11:39. ? FINDINGS:? ? Surgical changes and devices:? None.? ? Lungs and pleura:? Blunting the left costophrenic angle.? Heart size is enlarged, and mild vascular congestion is all accentuated by low lung volumes.? Osseous structures normal.? Right lung and pleural space clear ? ? IMPRESSION:? ? Cardiomegaly and mild vascular congestion,? small left pleural effusion associated with minimal left basilar atelectasis and or infiltrate. ? Low lung volumes? CT scan - head: Radiologist's Impression: Within normal limits Brain MRI: Radiologist's Impression: PROCEDURE:? MR HEAD/BRAIN WO CON ? INDICATIONS:? eval for stroke ? TECHNIQUE:? Non-contrast axial T1 spin echo, axial T2 fast spin echo, sagittal and axial FLAIR, coronal T2 fast spin echo, axial gradient echo, axial diffusion and ADC through the brain.? ? COMPARISON:? [facility], MR HEAD/BRAIN WO CON, 08/01/2022, 16:48. ? FINDINGS:? Image quality:? Excellent.? ? CSF spaces:? Ventricles appear symmetric in size and shape.? Basal cisterns are patent.? No extra-axial fluid collections.? ? Brain:? No intracranial bleeds or mass effects.? There is cerebral volume loss for age.? There are periventricular and deep white matter chronic small vessel ischemic changes.? Brainstem appears normal.? Diffusion-weighted images show no acute ischemic insults.? No chronic ischemic insults.? Normal intravascular flow voids are present.? ? Skull and face:? Calvarial bone marrow is normal in signal.? Orbits are normal.? ? Sinuses:? Mild bilateral frontal sinus mucosal thickening.? Mild right and moderate left maxillary sinus mucosal thickening.? Moderate bilateral ethmoid sinus mucosal thickening. ?Mild left sphenoid sinus mucosal thickening.? Mastoids are clear. ? IMPRESSION:? 1. Volume loss and small vessel ischemic disease. 2. Sinus disease. 3. No acute process.? No recent infarct. ECG Data Attestation: I personally reviewed and interpreted this ECG as follows: Interpretation: Sinus rhythm Ventricular rate is 79 Normal axis Normal QRS Normal QTC No ST T wave changes MDM Narrative Medical decision making narrative: I did have relatively low suspicion upon arrival that the patient had sustained an acute stroke as his symptoms were bilateral. He was talking appropriately. He just seemed to have profound weakness. The CT scan of his head and CTA of the head and neck showed no acute pathology. Subsequent MRI showed no acute pathology. His alcohol level was slightly elevated today. He states his last drink was approximately 0100 hours in the morning. Given the level of alcohol when it was tested I do suspect that he was fairly intoxicated last evening. There were no other injuries from this morning's event. During his workup here in the emergency department he did mention to nursing staff that he took all 50 of his diazepam at about 0100 hours in the morning as well. 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 He stated that this was an attempt to kill himself. He does seem to be improving during his time here. He is moving all 4 of his extremities. He is alert oriented x3. Patient is medically cleared. Patient has been seen by social work. 175: Patient has spent multiple hours here in the emergency department. He is alert oriented x3. Has a GCS of 15. Is medically cleared. Has ambulated. In my opinion has capacity to make decisions. He is not clinically intoxicated. During his visit here was they determined that most likely his presenting symptoms this morning were because of a diazepam overdose. Does appear that he did this intentionally. Review of medical record shows that he is had approximately 3 years of issues with ataxia. He has been seen by multiple providers to include neurologist and also ENT providers and also his primary doctor and there has not been a specific diagnosis made. This is caused him to become very unhappy with his quality of life. Apparently this is why he took all of the diazepam last evening. Patient was seen by social work. A consult was placed to the DCR. While we are waiting for the DCR evaluation the patient became somewhat agitated. He stating that he wanted to go home. I was able to convince him to stay for short period of time however there continue to be a delay in the DCR evaluation so the patient once again became more adamant about going home. I had a discussion with him. His and other family members at bedside. His placed specifically stated that she was comfortable bringing the patient home. She stated that she was going to take control of his medications. She stated that they had a ?safe home? patient stated that patient would be safe at home. Patient states he would feel safe going home. He did contract with me stating that prior to trying to hurt himself again that he would either return to the emergency department were talk with family members. Discharge Plan Departure Patient Disposition: Home Clinical Impression: Diazepam overdose Activity Restrictions/Additional Instructions: I do recommend that if you ever have thoughts of hurting yourself again that you either return to the emergency department or talk with a family member your primary care doctor. You can return to the emergency department at any point for new symptoms. Prescriptions: No Action nitroglycerin 0.4 mg tablet, sublingual 0.4 mg sublingual Q5M PRN (Reason: chest pain) Qty: 90 0RF Rx Instructions: do not exceed 3 doses per episode rabeprazole [AcipHex] 20 mg tablet,delayed release (DR/EC) 20 mg PO DAILY Qty: 90 0RF Rx Instructions: Name Brand Only psyllium husk [Fiber (psyllium husk)] 1 cap PO DAILY Repatha Pushtronex 420 mg/3.5 mL wearable injector 420 mg SUBCUT QMONTH metoprolol tartrate 25 mg tablet 25 mg PO DAILY fenofibrate nanocrystallized 48 mg tablet 48 mg PO BID Qty: 180 3RF aspirin 81 mg Tablet,Delayed Release (Dr/Ec) 81 mg PO BID lisinopril 20 mg tablet 20 mg PO DAILY diazepam 5 mg tablet 5 mg PO PRN PRN (Reason: anxiety) docusate sodium 50 mg Tablet 50 mg PO PRN PRN (Reason: Constipation) vitamin B complex [B Complex-Vitamin B12] Tablet 1 tab PO DAILY calcium carbonate [Tums 500] 500 mg calcium (1,250 mg) Tablet,Chewable 500 mg PO PRN PRN (Reason: Heartburn) Daily Probiotic 2.5 billion cell Capsule PO DAILY Referrals: Uvaldo Cantor MD [Primary Care Provider] - Stand Alone Forms: Patient Portal/API
[2023-03-26 10:11] LABS: Prothrombin Time 11.9 SECONDS (10.1-12.7)
[2023-03-26 10:13] LABS: PTT Partial Thromboplastin Tim 28 SECONDS (26-36)
[2023-03-26 10:15] LABS: Creatine Kinase 511 U/L (55-170)
[2023-03-26 10:17] LABS: Alanine Aminotransferase 38 IU/L (<50); Albumin 4.2 g/dL (3.5-5.0); Albumin Globulin Ratio 1.4 (1.0-2.8); Alkaline Phosphatase 62 U/L (38-126); Aspartate Aminotransferase 60 IU/L (17-59); BUN Creatinine Ratio 10.1 (6-22); Bilirubin Total 0.6 mg/dL (0.2-1.3); Blood Urea Nitrogen 9 mg/dL (9-20); Carbon Dioxide 23 mmol/L (22-32); Chloride 101 mmol/L (98-107); Estimated Glomerular Filt Rate > 60 mL/min (>60); Ethanol (ETOH) 53 mg/dL; Globulin 3.1 g/dL (1.7-4.1); Glucose 139 mg/dL (80-110); HEMOLYSIS 21 (0-50); Lipase 49 U/L (23-300); Potassium 3.9 mmol/L (3.4-5.1); Sodium 138 mmol/L (137-145); Total Protein 7.3 g/dL (6.3-8.2)
[2023-03-26 10:26] LABS: Troponin I < 0.012 ng/mL (0.01-0.034)
--- NOTE | 2023-03-26 10:35 | PC.NURSE ---
stroke scale mostly unable to do. Patient shakes head no to questions asked, like can you follow my finger but gaze does track for part of conversation. patient unable to read or see images on pictures due to not having glasses and states he can barely see without them. pt was able to wiggle toes when asked and responds to painful stimuli.
[2023-03-26] MEDS: SODIUM CHLORIDE 0.9% 1,000 ML 1000 ML IV (10:44)
[2023-03-26 11:12] LABS: Adenovirus Not Detected (Not Detect); B. parapertussis Not Detected (Not Detecte); Bordetella pertussis Not Detected (Not Detecte); Chlamydophila pneumoniae Not Detected (Not Detect); Coronavirus 229E Not Detected (Not Detect); Coronavirus HKU1 Not Detected (Not Detect); Coronavirus NL 63 Not Detected (Not Detect); Coronavirus OC43 Not Detected (Not Detect); Human Metapneumovirus Not Detected (Not Detect); Human Rhinovirus/Enterovirus Not Detected (Not Detect); Influenza A Not Detected (Not Detect); Influenza B Not Detected (Not Detect); Mycoplasma pneumoniae Not Detected (Not Detect); Parainfluenza Virus 1 Not Detected (Not Detect); Parainfluenza Virus 2 Not Detected (Not Detect); Parainfluenza Virus 3 Not Detected (Not Detect); Parainfluenza Virus 4 Not Detected (Not Detect); Respiratory Syncytial Virus Not Detected (Not Detect); SARS- CoV-2 Not Detected (Not Detecte)
--- NOTE | 2023-03-26 11:48 | DI.MRI.S_ITS ---
PROCEDURE: MR HEAD/BRAIN WO CON INDICATIONS: eval for stroke TECHNIQUE: Non-contrast axial T1 spin echo, axial T2 fast spin echo, sagittal and axial FLAIR, coronal T2 fast spin echo, axial gradient echo, axial diffusion and ADC through the brain. COMPARISON: [facility], , MR HEAD/BRAIN WO CON, 08/01/2022, 16:48. FINDINGS: Image quality: Excellent. CSF spaces: Ventricles appear symmetric in size and shape. Basal cisterns are patent. No extra-axial fluid collections. Brain: No intracranial bleeds or mass effects. There is cerebral volume loss for age. There are periventricular and deep white matter chronic small vessel ischemic changes. Brainstem appears normal. Diffusion-weighted images show no acute ischemic insults. No chronic ischemic insults. Normal intravascular flow voids are present. Skull and face: Calvarial bone marrow is normal in signal. Orbits are normal. Sinuses: Mild bilateral frontal sinus mucosal thickening. Mild right and moderate left maxillary sinus mucosal thickening. Moderate bilateral ethmoid sinus mucosal thickening. Mild left sphenoid sinus mucosal thickening. Mastoids are clear. IMPRESSION: 1. Volume loss and small vessel ischemic disease. 2. Sinus disease. 3. No acute process. No recent infarct. Dictated by: Osman Frazier M.D. on 03/26/2023 at 13:27 Approved by: Osman Frazier M.D. on 03/26/2023 at 13:30
--- NOTE | 2023-03-26 12:55 | PC.NURSE ---
asked patient what time he thinks he took his medications last night. He states probably about 0100. patient states it was probably about 50 5mg tablets of diazepam. he states he took this in an attempt to end his life.
--- NOTE | 2023-03-26 13:23 | PC.NURSE ---
Pt @ MRI w/ 1:1 observation and returned to sitter.
--- NOTE | 2023-03-26 14:01 | PC.NURSE ---
Addendum entered by Katalina Hamilton R.N. 03/26/23 14:42: this nurse had gone in to re evaluate patient when patient suddenly states i know what happened when asked to clarify the patient states i took all of my diazepam pills last night. when asked how many pt stated about 50. when asked why he stated he was tired of this dizzy problem he has and just didn't want to wake up again. informed provider of conversation right away. suicide risk assessment done. SNELLER HAND noted Original Note: with 2 nurse stand by assist, pt got up to commode. gait unsteady but minimal assistance needed.
--- NOTE | 2023-03-26 14:17 | PC.NURSE ---
POWER PRESS SUPERVISOR Note: This POWER PRESS SUPERVISOR took over for sitting with pt who is currently resting with family present in the room. This POWER PRESS SUPERVISOR will continue to remain at beside.
--- NOTE | 2023-03-26 14:34 | CM.SWNOTE ---
ED MAINFRAME DEVELOPER Assessment MAINFRAME DEVELOPER - Grants Assistant Assessment MAINFRAME DEVELOPER/Grants Assistant Assessment Time Spent with Patient Start date 03/26/23 Visit Start Time 13:35 End date 03/26/23 Visit End Time 13:55 Total time Care Management spent on 20 minutes patient visit-in minutes Mental Health Screening Include Onset, Duration, Intensity Presenting Problem Patient presents to ED via EMS due to patient's spouse's concern for patient found crawling to bathroom this morning presenting with facial droop and weakness. Patient later reports to RN upon arrival that he overdosed on 50 tablets of 5mg Diazepem in attempt to kill self. Patient endorse he drank vodka all day yesterday as well and drinks vodka daily. Patient endorses current SI and states his plan is to with with dignity in [place], after upcoming trip. Precipitating Event(s) Patient endorses he has been experiencing depression and SI in the last 1.5 years after frustration with [facility]. Patient endorses he has seen several specialists regarding his chronic medical conditions and there is no treatment or solution. Patient endorses he believes his PCP gave up on him. Patient endorses that last night at 12:30 AM he was comforting a friend and kissed her and states it didn't go well. Patient states after that at 1:00 am he proceeded to overdose on pills. Patient Strengths Patient has spouse as support. Current Behavioral Health Provider(s) No provider, no hx of provider Include Facility, Provider, Ph. # and no interest in outpatient MH. Psych. Hx Mental Health and Chemical Patient has hx of Depression, Dependency recent suicide attempt and SI. In triage patient reports THC use. Patient endorses daily vodka use all day (8am-11pm) patient states he drinks 1/3 of a 1.75 bottle of vodka daily. Patient endorses his last drink was last night. Patient denies any other substance use. Family Hx of Behavioral Abuse None reported Psychiatric Hospitalizations (date(s)/ No hx location) Psychosocial information & Support Patient is 68 y/o male who Systems resides in [place] with spouse. Patient has spouse and friends as supports. 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 Legal Concerns Legal Matters - Outstanding Issues None reported Mental Status Orientation (Person/Place/Time) A/Ox4 Stated Mood alright Affect (Congruent with Mood?) dysthymic, matter of fact, full range, fairly congruent with mood. Thought Content - Specify/Describe Patient denies visual or Obsessions, Delusions, Hallucinations auditory hallucinations. Thought Processes (Thicigr-Gywfjkom-Shaj goal directed, patient very Sngsqtok-Vajhfxwl-Srpmqqjlsv- fixated on his right to end Tiwvlfwvnivoix-Tqdkhlh-Ssaqgxmuhthp- his life. Thought Blocking) Speech (Hrejry-Hqcu-Kokvwfb-Rapid-Soft- soft/normal Loud-Pressured) Motor (Spggvj-Yhvijdsjh-Qytw-Other) normal Insight (Gxdi-Xfji-Rkjn/Limited) fair Judgement (Zvlf-Safy-Aktg/Limited) fair/limited Impulse Control (Adequate-Impaired) adequate Memory (Jwtixinyy-Vfdzwl-Otnuxo, intact, not formally assessed Impaired-Intact) Concentration (Intact-Impaired) intact Attention (Intact-Impaired) intact Behavior (Appropriate-Inappropriate) appropriate Additional Comment Patient presents as calm and communicative. Risk Assessment Suicidal Ideation (Plan) Yes Homicidal Ideation (Plan) No Comment Patient presents to ED after suicide attempt when he overdosed on 50 pills of 5mg diazepam at approximately 1: 00am. Patient endorses he thought of this plan about 30 minutes prior and did not tell anyone afterwards until arrival at hospital. Patient endorses current SI and hx of SI in the last year and a half . Patient endorses his current SI plan is to go to [place] and use his right to with dignity. Patient's spouse states that patient has endorsed vague SI in the past and recently discussed his plan to go to [place]. Patient denies HI but states if he had the chance he will shoot Yossi Solis with a gun. Patient denies access to any weapons and states that he does not believe he would ever be in [place]azarK[place]uru's vicinity. Intervention Intervention MAINFRAME DEVELOPER enters room to meet with patient, present in room is patient's spouse with consent. Patient endorses recent suicide attempt and current SI with plan. Patient endorses frustration with [facility] and states that no on can help him and he wants to pursue his right to . Patient endorses disinterest in outpatient MH services, in hospitalization and did not agree to DCR evaluation. Patient endorses preference to d/c hospital upon medical clearance. MAINFRAME DEVELOPER speaks with spouse who states that she believes patient is safe to d/c and they will discuss his plan to pursue his plan in [place]. Patient states that he would tell his spouse prior to acting on SI again. MAINFRAME DEVELOPER reviews patient with ED provider and project buyer and decides to consult with [facility] to speak with DCR for consult. MAINFRAME DEVELOPER calls [facility] and consults with professional and it is recommended that DCR be dispatched for further evaluation. It is the opinion of this MAINFRAME DEVELOPER that patient would benefit from inpatient hospitalization for crisis stabilization, medication management and safety. At this time patient is not voluntary and would require a DCR evaluation. MAINFRAME DEVELOPER reviews the above with ED provider Dr. Blair who indicates agreement and understanding. Plan RA Plan MAINFRAME DEVELOPER dispatches DCR for GEE evaluation. Nitza Fowler, TRENCHING MACHINE OPERATOR
[2023-03-26 14:42] LABS: UR Morphine/Opiate cutoff 300 Negative (Negative); Ur Creatinine Normal (Normal); Ur Specific Gravity Normal (Normal); Urine Amphetamines Negative (Negative); Urine Barbiturates Negative (Negative); Urine Benzodiazepines Positive (Negative); Urine Cocaine Negative (Negative); Urine MDMA Negative (Negative); Urine Methadone Negative (Negative); Urine Methamphetamines Negative (Negative); Urine Oxycodone Negative (Negative); Urine Phencyclidine Negative (Negative); Urine Tetrahydrocannabinol Positive (Negative); Urine Tricyclic Antidepressant Negative (Negative); Urine pH Normal (Normal)
--- NOTE | 2023-03-26 16:06 | PC.NURSE ---
informed family about DCR and expected wait time of 1700.
--- NOTE | 2023-03-26 16:34 | PC.NURSE ---
LOOM CHECKER Note: Pt becoming increasingly frustrated about their situation. Would ask his family members repeatedly what their waiting on from being discharged. family members told pt about waiting for DCR, pt would sigh in frustration. Recently, pt stated he would want to sign a DNR. Family members attempt to calm patient down. This LOOM CHECKER continues to remain at beside.
[2023-03-26 16:48] LABS: Acetaminophen < 10 ug/mL (10-30); Salicylate < 1.0 mg/dL (<20)
--- NOTE | 2023-03-26 16:53 | PC.NURSE ---
DIAMOND SAW OPERATOR Note: Pt asked nurse if it was okay to remove the IV and nurse said yes. This DIAMOND SAW OPERATOR gathered supplies to remove the IV, however pt removed the IV themself even when this DIAMOND SAW OPERATOR told them not to do that. Pt continues to display agitated and impatient behaviors and this DIAMOND SAW OPERATOR continues to sit by bedside. This DIAMOND SAW OPERATOR charted that pt has removed their IV.
--- NOTE | 2023-03-26 17:17 | PC.NURSE ---
Gave pt their meal tray, however pt did not seem hungry.
--- NOTE | 2023-03-26 18:05 | CM.SWNOTE ---
ED BUSINESS PROGRAMMER Note BUSINESS PROGRAMMER calls to dispatch DCR. Lyndsey TAMAYO reviews case and states that DCR Ishan will be assigned after 1700. Lyndsey reports that patient will likely be a walk away if detained as there are no beds available or patient not a good fit for facility due to ETOH or unsteady gait. BUSINESS PROGRAMMER receives call from Ishan who states he is going to review patient. BUSINESS PROGRAMMER receives several reports from RN and CNAs that patient is increasing frustrated and agitated requesting to leave. ED provider speaks with patient and family. It is reported that patient is carlos for safety, patient's family and friends endorse they will monitor patient and keep him safe, RN provides patient with lists of alternative tx for patient's condition. Per RN patient is showing some forward thinking about other tx. ED provider proceeds to d/c patient with family as they all contract for patient's safety. BUSINESS PROGRAMMER calls Ishan TAMAYO regarding ED provider's decision and patient's disposition. BUSINESS PROGRAMMER calls [facility] regarding rescinding DCR dispatch and requests [facility] f/u call for patient tomorrow AM. Patient agrees to accept call. Plan: Patient to d/c to home with family, [facility] to f/u with patient tomorrow. Family to monitor patient safety. SANDIE EwingSW
--- NOTE | 2023-03-26 18:20 | PC.NURSE ---
Prior to discharge, I gave patient information to call [facility], the ataxia clinic for his cerebellar ataxia. pt reported prior to given him the information that there was nothing that could be done. Pt and family seemed to have hope that they could possibly find treatment and be a part of the phase 3 drug trial. pt agreed to a safety plan with Dr. Blair, staff and mental health social worker. [facility] will call patient tomorrow. pt agreed. Discharged patient in NAD. denies suicidal plan.
== END 2023-03-26 18:05 | disposition home or self-care (01) ==
PROVIDERS: Emergency Provider Emergency Medicine; PCP Internal Medicine
DX: T42.4X1A Poisoning by benzodiazepines, accidental (unintentional), initial encounter (principal); Z20.822 Contact with and (suspected) exposure to COVID-19
CPT/HCPCS: 36415; 51798; 70450; 70496; 70498; 70551; 71045; 80053; 80305; 80320; 80329; 81003; 82550; 83690; 84484; 85025; 85610; 85730; 87633; 93005; 96360; 99285; G0480

== ENCOUNTER → 2023-04-15 16:45 | Outpatient (CLI) | payer OTHER, SELFPAY ==
--- NOTE | 2023-04-15 16:47 | DI.US.S_ITS ---
PROCEDURE: US CAROTID DOPPLER BI INDICATIONS: OCCLUSION AND STENOSIS OF BILATERAL CAROTID ARTERIES TECHNIQUE: Color and pulse Doppler interrogation was performed of both carotid systems, with image documentation and velocity measurements. COMPARISON: [facility], , CAROTID ARTERY DOPPLER [facility], 07/31/2016, 12:16. FINDINGS: Stenosis calculations are based on SRU (Society of Radiologists in Ultrasound) criteria. Right side: Brachial blood pressure: 142/83 mm Hg. Common carotid artery peak systolic velocity: 104 cm/sec. Internal carotid artery peak systolic velocity: 131 cm/sec. Internal carotid artery end diastolic velocity: 28 cm/sec. External carotid artery peak systolic velocity: 276 cm/sec. ICA/CCA peak systolic ratio: 1.3 . Deng scale imaging description: Atheromatous plaque and calcification are present. Percent internal carotid artery stenosis: 50-69% stenosis. Vertebral artery: Flow direction is antegrade. Left side: Brachial blood pressure: 142/82 mm Hg. Common carotid artery peak systolic velocity: 99 cm/sec. Internal carotid artery peak systolic velocity: 79 cm/sec. Internal carotid artery end diastolic velocity: 28 cm/sec. External carotid artery peak systolic velocity: 125 cm/sec. ICA/CCA peak systolic ratio: 0.8. Deng scale imaging description: Atheromatous plaquing calcification are present at the bifurcation Percent internal carotid artery stenosis: Less than 50% stenosis. Vertebral artery: Flow direction is antegrade. IMPRESSION: 1. 50-69% stenosis of the right internal carotid artery. 2. Less than 50% stenosis of the left internal carotid artery. 3. Markedly elevated peak systolic velocity within the right external carotid artery suggesting high-grade stenosis. Dictated by: Celestina Hurst M.D. on 04/16/2023 at 13:19 Approved by: Celestina Hurst M.D. on 04/16/2023 at 13:23
== END ==
PROVIDERS: PCP Internal Medicine; Referring Provider Nurse Practitioner; Visit Provider Nurse Practitioner
DX: I65.23 Occlusion and stenosis of bilateral carotid arteries (principal)
CPT/HCPCS: 93880

== ENCOUNTER 2024-04-11 20:49 | Inpatient (IN) | payer OTHER, MEDICARE, SELFPAY ==
[2024-04-11] VITALS (9 sets, daily range): BP systolic 146–170; BP diastolic 79–95; PULSE 76–97; RESP 16–20; TEMP 36.6; O2SAT 96–99; BMI 30.8
--- NOTE | 2024-04-11 21:04 | DI.RAD.S_ITS ---
PROCEDURE: XR HIP W PEL IF DONE LT 2V INDICATIONS: fall/pain TECHNIQUE: AP pelvis with lateral view(s) of the left hip(s). COMPARISON: None. FINDINGS: Bones: Acute comminuted fracture through intertrochanteric region of left proximal femur is seen with anterior displacement and angulation at fracture site . Moderate bilateral hip joint osteoarthritic changes are seen. No evidence of avascular necrosis of femoral. Pelvic ring appears intact. No suspicious bony lesions. Soft tissues: The visualized bowel gas pattern is normal. No suspicious soft tissue calcifications. IMPRESSION: Acute comminuted and slightly displaced intertrochanteric fracture involving left proximal femur. Moderate bilateral hip joint osteoarthritis. No evidence of avascular necrosis. Dictated by: Abdiel Conner M.D. on 04/11/2024 at 22:09 Approved by: Abdiel Conner M.D. on 04/11/2024 at 22:10
[2024-04-11] MEDS: HYDROMORPHONE 1 MG INJ IV (21:31)
--- NOTE | 2024-04-11 22:03 | ED.LOWEXIN ---
HPI - Extremity Injury (Lower) General Chief Complaint: Extremity Injury, Lower Stated Complaint: GLF L hip pain Time Seen by Provider: 04/11/24 21:12 Source: patient Mode of arrival: EMS History of Present Illness HPI Narrative: Patient is a 69-year-old male. Not on blood thinners. Here for evaluation of a left hip injury. Patient has been dealing with issues with ataxia for the past 3 years. Has seen multiple providers to include multiple neurologists and Neurology at the [facility]. No specific diagnosis has been made. Has a history of high blood pressure and high cholesterol. He states that he was standing in his bathroom this evening. He was tired. He lost his balance and fell. He hit his left hip on the edge of the bathtub. He did hit his head but no loss of consciousness. He was no neck pain. No other injuries from the event. All of his discomfort is associated to the left hip. Related Data Home Medications Medication Instructions Recorded Confirmed evolocumab 420 mg/3.5 mL 420 mg SUBCUT QMONTH 02/06/21 11/12/23 subcutaneous wearable injector (Repatha Pushtronex) psyllium husk [Fiber (psyllium 1 cap PO DAILY 02/06/21 11/12/23 husk)] metoprolol tartrate 25 mg tablet 25 mg PO DAILY 10/23/21 11/12/23 Lactobacillus cap PO DAILY 03/26/23 11/12/23 acidophilus-Bifidobac.animalis 2.5 billion cell capsule (Daily Probiotic) calcium carbonate 500 mg PO PRN PRN Heartburn 03/26/23 11/12/23 docusate sodium 50 mg tablet 50 mg PO PRN PRN Constipation 03/26/23 11/12/23 vitamin B complex (B 1 tab PO DAILY 03/26/23 11/12/23 Complex-Vitamin B12 tablet) aspirin 81 mg tablet,delayed 81 mg PO DAILY 11/12/23 11/12/23 release Previous Rx's Medication Instructions Recorded nitroglycerin 0.4 mg sublingual 0.4 mg sublingual Q5M PRN chest 07/26/22 tablet pain #90 tabs lansoprazole 30 mg capsule,delayed 30 mg PO DAILY #90 caps 12/24/23 release AcipHex 20 mg tablet,delayed 20 mg PO DAILY #90 tabs 01/17/24 release (rabeprazole) fenofibrate nanocrystallized 48 mg 48 mg PO BID #180 tabs 03/25/24 tablet lisinopril 20 mg tablet 20 mg PO DAILY #90 tabs 03/25/24 Allergies Allergy/AdvReac Type Severity Reaction Status Date / Time Uepysfo-ZDF-[id number] Reductase AdvReac Severe unknown Verified 11/12/23 15:02 Inhibitor COVID-19 vacc, bv (Orig, AdvReac rash Verified 11/12/23 15:02 Omicron BA.4/5) (Moderna) [From Moderna COVID Bival(6m up)(PF)] Review of Systems Review of Systems ROS Unobtainable: All systems reviewed & are unremarkable except as noted in HPI and below Patient History Medical History Cerebellar ataxia GERD without esophagitis Irritable bowel syndrome Coronary artery disease involving [place] coronary artery of [place] heart without angina pectoris Personal history of stroke with current residual effects (~2005) Mixed hyperlipidemia Essential hypertension Coronary artery disease Surgical History (Updated 02/14/21 @ 07:40 by Uvaldo Cantor MD) S/P foot surgery (~1966) H/O heart artery stent (~08/2016) S/P tonsillectomy (~1962) Social History Smoking Status: Former smoker Smoking Status: Former smoker alcohol intake frequency: 0-2 drinks per day Substance Use Type: does not use Exam Initial Vital Signs Initial Vital Signs: Vital Signs Pulse Rate 76 04/11/24 20:52 Blood Pressure 170/91 H 04/11/24 20:52 Pulse Oximetry 97 04/11/24 20:52 Const General: cooperative and No ill appearing [facility] Head: normal to inspection and normocephalic Cardio Rate: regular rate GI Inspection: normal to inspection Back/Spine/Pelvis Cervical Spine: No cervical spinal tenderness Skin General: no rashes or lesions noted Extrem Other: Discomfort palpation left hemipelvis. Bilateral upper extremities unremarkable. Right lower extremity unremarkable. Scores GCS Care[place] coma scale eye opening: Spontaneous [place] coma scale verbal response: Orientated [place] coma scale motor response: Obey commands Christiano coma scale total score: 15 Course Orders Ordered: ED Orders 04/11/24 21:04 XR hip w pel if done LT 2V Stat 04/11/24 21:57 Basic Metabolic Panel Stat Complete Blood Count AUTO DIFF Stat 04/11/24 22:03 Consult to Orthopedic Surgery Stat 04/11/24 22:11 CT LE LT wo con Stat Discontinued Medications Hydromorphone HCl (Hydromorphone 1 Mg Inj) 1 mg IV NOW ONE Stop: 04/11/24 21:29 Last Admin: 04/11/24 21:31 Dose: 1 mg Documented By: JYOTI Hydromorphone HCl (Hydromorphone 0.5 Mg Inj) 0.5 mg IV NOW ONE Stop: 04/11/24 22:12 Last Admin: 04/11/24 22:35 Dose: 0.5 mg Documented By: BS Vital Signs Vital signs: Vital Signs - 8 hr 04/11/24 20:52 04/11/24 20:52 04/11/24 21:00 Temperature Pulse Rate 76 Respiratory Rate Blood Pressure 170/91 H 150/80 H Pulse Oximetry 97 Oxygen Delivery Method 04/11/24 21:00 04/11/24 21:07 04/11/24 21:35 Temperature 97.8 F Pulse Rate 76 77 86 Respiratory Rate 16 Blood Pressure 170/91 H Pulse Oximetry 96 96 99 Oxygen Delivery Method Room Air 04/11/24 21:36 04/11/24 21:36 04/11/24 22:00 Temperature Pulse Rate 84 77 Respiratory Rate 18 Blood Pressure 146/79 H Pulse Oximetry 97 98 Oxygen Delivery Method MDM - Extremity Injury (Lower) Imaging Data Extremity x-ray #1: Radiologist's Impression: PROCEDURE: XR HIP W PEL IF DONE LT 2V INDICATIONS: fall/pain TECHNIQUE: AP pelvis with lateral view(s) of the left hip(s). COMPARISON: None. FINDINGS: Bones: Acute comminuted fracture through intertrochanteric region of left proximal femur is seen with anterior displacement and angulation at fracture site . Moderate bilateral hip joint osteoarthritic changes are seen. No evidence of avascular necrosis of femoral. Pelvic ring appears intact. No suspicious bony lesions. Soft tissues: The visualized bowel gas pattern is normal. No suspicious soft tissue calcifications. IMPRESSION: Acute comminuted and slightly displaced intertrochanteric fracture involving left proximal femur. Moderate bilateral hip joint osteoarthritis. No evidence of avascular necrosis. CT LE: Radiologist's Impression: PROCEDURE: CT LE LT W CON INDICATIONS: L hip fx ortho requests CT for surgery prep TECHNIQUE: Noncontrast 3 mm axial sections acquired through the bony pelvis. Additional 3 mm axial sections acquired through the symptomatic hip joint, with coronal and sagittal reformats. COMPARISON: [facility], CR, XR HIP W PEL IF DONE LT 2V, 04/11/2024, 21:37. FINDINGS: Image quality: Excellent. Bones: As seen on earlier hip radiograph, there is an acute comminuted fracture involving intertrochanteric region of left proximal femur with fracture lines extending to involve both greater and lesser trochanters with superior and laterally displaced greater trochanteric fragments and inferior and medially displaced lesser trochanteric fragment. Mild anterior and lateral angulation at fracture site is also seen. There is no other fracture or dislocation. Osteoarthritic changes are noted throughout bony pelvis. No evidence of avascular necrosis of femoral head. No suspicious bony lesions. Soft tissues: There is soft tissue swelling and edema surrounding proximal left femoral fracture site. Asymmetrically enlarged left iliacus muscle and left gluteus muscles is seen suggestive of intramuscular hematoma. No discrete drainable fluid collection. No peritoneal free fluid or free air. No abnormal bowel wall thickening. Bladder wall thickness is normal. No pelvic lymphadenopathy. IMPRESSION: 1. Acute comminuted and displaced fracture involving intertrochanteric region of left proximal femur as described above. No other fracture or dislocation. 2. Osteoarthritic changes throughout bony pelvis. No evidence of avascular necrosis of femoral head. No suspicious bony lesions. 3. Soft tissue swelling and edema surrounding left proximal femoral fracture site with suggestion of intramuscular hematoma involving left iliacus muscle and left gluteus muscles. No discrete drainable fluid collection. No abnormal soft tissue calcifications. No pelvic free fluid or free air. MDM Narrative Medical decision making narrative: Discussed the case with Dr. Greene with orthopedic surgery who recommended a CT scan for further surgical planning. Asked that the patient be made NPO after midnight for preparation of surgery tomorrow. I did discuss the case with Dr. Germain hospitalist on-call who will admit for further evaluation and treatment. Discharge Plan Departure Patient Disposition: Admitted As Inpatient Clinical Impression: Closed fracture of left hip, Ataxia Admit Date/Time: 04/11/24 22:15 Admit Provider: Mynor Tripathi
--- NOTE | 2024-04-11 22:11 | DI.CT.S_ITS ---
PROCEDURE: CT LE LT W CON INDICATIONS: L hip fx ortho requests CT for surgery prep TECHNIQUE: Noncontrast 3 mm axial sections acquired through the bony pelvis. Additional 3 mm axial sections acquired through the symptomatic hip joint, with coronal and sagittal reformats. COMPARISON: [facility], CR, XR HIP W PEL IF DONE LT 2V, 04/11/2024, 21:37. FINDINGS: Image quality: Excellent. Bones: As seen on earlier hip radiograph, there is an acute comminuted fracture involving intertrochanteric region of left proximal femur with fracture lines extending to involve both greater and lesser trochanters with superior and laterally displaced greater trochanteric fragments and inferior and medially displaced lesser trochanteric fragment. Mild anterior and lateral angulation at fracture site is also seen. There is no other fracture or dislocation. Osteoarthritic changes are noted throughout bony pelvis. No evidence of avascular necrosis of femoral head. No suspicious bony lesions. Soft tissues: There is soft tissue swelling and edema surrounding proximal left femoral fracture site. Asymmetrically enlarged left iliacus muscle and left gluteus muscles is seen suggestive of intramuscular hematoma. No discrete drainable fluid collection. No peritoneal free fluid or free air. No abnormal bowel wall thickening. Bladder wall thickness is normal. No pelvic lymphadenopathy. IMPRESSION: 1. Acute comminuted and displaced fracture involving intertrochanteric region of left proximal femur as described above. No other fracture or dislocation. 2. Osteoarthritic changes throughout bony pelvis. No evidence of avascular necrosis of femoral head. No suspicious bony lesions. 3. Soft tissue swelling and edema surrounding left proximal femoral fracture site with suggestion of intramuscular hematoma involving left iliacus muscle and left gluteus muscles. No discrete drainable fluid collection. No abnormal soft tissue calcifications. No pelvic free fluid or free air. Dictated by: Abdiel Conner M.D. on 04/11/2024 at 22:39 Approved by: Abdiel Conner M.D. on 04/11/2024 at 22:41
[2024-04-11] MEDS: HYDROMORPHONE 0.5 MG INJ IV (22:35)
[2024-04-11 23:06] LABS: Basophils Absolute Auto 100 /uL (0-100); Basophils Percent Auto 0.6 % (0-2); Eosinophils Absolute Auto 0 /uL (0-450); Eosinophils Percent Auto 0.2 % (2-4); Hematocrit 42.3 % (41-53); Hemoglobin 15.4 g/dL (13.5-17.5); Lymphocytes Absolute Auto 1200 /uL (1100-4500); Lymphocytes Percent Auto 11.6 % (25-40); Mean Corpuscular HGB Conc 36.4 % (30-36); Mean Corpuscular Hemoglobin 37.9 PG (26-34); Mean Corpuscular Volume 104.2 fL (80-100); Monocytes Absolute Auto 700 /uL (0-900); Monocytes Percent Auto 6.8 % (3-14); Neutrophils Absolute Auto 8400 /uL (1500-7000); Neutrophils Percent Auto 80.8 % (50-75); Platelet Count 276 X10^3/uL (150-400); Red Blood Cell Count 4.06 X10^6/uL (4.5-5.9); Red Cell Distribution Width 14.2 % (11.6-14.8); White Blood Cell Count 10.4 X10^3/uL (4.5-11.0)
[2024-04-11 23:07] LABS: Add Manual Diff / Slide Review SLIDE REVIEW
[2024-04-11 23:10] LABS: BUN Creatinine Ratio 5.8 (6-22); Blood Urea Nitrogen 5 mg/dL (9-20); Calcium 8.2 mg/dL (8.4-10.2); Carbon Dioxide 22 mmol/L (22-32); Chloride 96 mmol/L (98-107); Estimated Glomerular Filt Rate > 60 mL/min (>60); Glucose 146 mg/dL (80-110); HEMOLYSIS 22 (0-50); Potassium 2.8 mmol/L (3.4-5.1); Sodium 133 mmol/L (137-145)
[2024-04-11] MEDS: POTASSIUM CHLORIDE 20 MEQ/15 ML UDC 60 MEQ PO (23:50)
[2024-04-11] MEDS: POTASSIUM CHLORIDE IN WATER 10 MEQ/100 ML PIGGYBACK 100 MEQ IV (23:51)
[2024-04-12] VITALS (18 sets, daily range): BP systolic 136–174; BP diastolic 68–95; PULSE 77–91; RESP 12–19; TEMP 36.3–37.2; O2SAT 92–98; BMI 30.8
--- NOTE | 2024-04-12 | DI.RAD.S_ITS ---
PROCEDURE: XR HIP W PEL IF DONE LT 2V INDICATIONS: IM NAILLING OF LT HIP TECHNIQUE: AP pelvis with lateral view(s) of the left hip(s). COMPARISON: [facility], CR, XR HIP W PEL IF DONE LT 2V, 04/11/2024, 21:37. FINDINGS: Bones: Intertrochanteric fractures the reduced anatomic alignment is now transfixed by a gamma nail. SI and hip joints: Mild left hip degeneration. Soft tissues: Mild soft tissue swelling, calcification or mass. IMPRESSION: ORIF intertrochanteric fracture anatomic alignment no Dictated by: Uvaldo Tellez M.D. on 04/13/2024 at 11:30 Approved by: Uvaldo Tellez M.D. on 04/13/2024 at 11:32
[2024-04-12] MEDS: LACTATED RINGERS 1,000 ML 100 ML IV ×2 (00:19→13:29)
[2024-04-12] MEDS: KETOROLAC 30 MG/ML VIAL 15 MG IV ×2 (00:19→12:10)
--- NOTE | 2024-04-12 00:26 | P.HP_ITS ---
History of Present Illness History of Present Illness Date Patient Seen: 04/11/24 Chief complaint: GLF L hip pain Narrative: 69 y/o with PMH of HTN, CAD, HLD, GERD, Hx of CVA, cerebellar ataxia and prior falls, sustained fall in the bathroom and fractured left hip. A fall was associated with ataxia that is seriously affecting his mobility since several years ago. Followed by neurology. Xray / CT showing comminuted and displaced fracture involving intertrochanteric region of left proximal femur.In addition, he presented hypokalemic and hypomagnesemic. Admitted NPO in anticipation of ORIF in AM. [facility] Medical History Cerebellar ataxia GERD without esophagitis Irritable bowel syndrome Coronary artery disease involving [place] coronary artery of [place] heart without angina pectoris Personal history of stroke with current residual effects (~2005) Mixed hyperlipidemia Essential hypertension Coronary artery disease Surgical History S/P foot surgery (~1966) H/O heart artery stent (~08/2016) S/P tonsillectomy (~1962) Social History household members: spouse Smoking Status: Former smoker Meds Home Medications and Allergies Home Medications Medication Instructions Recorded Confirmed Type metoprolol tartrate 25 mg tablet 25 mg PO DAILY 10/23/21 04/12/24 History nitroglycerin 0.4 mg sublingual 0.4 mg sublingual Q5M PRN chest 07/26/22 04/12/24 Rx tablet pain #90 tabs calcium carbonate 500 mg PO PRN PRN Heartburn 03/26/23 04/12/24 History docusate sodium 50 mg tablet 50 mg PO PRN PRN Constipation 03/26/23 04/12/24 History vitamin B complex (B 1 tab PO DAILY 03/26/23 04/12/24 History Complex-Vitamin B12 tablet) aspirin 81 mg tablet,delayed 81 mg PO DAILY 11/12/23 04/12/24 History release AcipHex 20 mg tablet,delayed 20 mg PO DAILY #90 tabs 01/17/24 04/12/24 Rx release (rabeprazole) fenofibrate nanocrystallized 48 mg 48 mg PO BID #180 tabs 03/25/24 04/12/24 Rx tablet lisinopril 20 mg tablet 20 mg PO DAILY #90 tabs 03/25/24 04/12/24 Rx Allergies Allergy/AdvReac Type Severity Reaction Status Date / Time [id number] Reductase AdvReac Severe unknown Verified 11/12/23 15:02 Inhibitor COVID-19 vacc, bv (Orig, AdvReac rash Verified 11/12/23 15:02 Omicron BA.4/5) (Moderna) [From Moderna COVID Bival(6m up)(PF)] Review of Systems Cardiovascular Comments: w/o chest pain or palpitations Respiratory Comments: w/o shortness of breath or cough Gastrointestinal Comments: w/o abdominal pain Genitourinary Comments: w/o voiding difficulties Neurologic Comments: debilitating, long-standing ataxia Exam Vital Signs (past 8 hours): - 04/11/24 20:52 04/11/24 20:52 04/11/24 21:00 Temperature Pulse Rate 76 Respiratory Rate Blood Pressure 170/91 H 150/80 H Pulse Oximetry 97 Oxygen Delivery Method 04/11/24 21:00 04/11/24 21:07 04/11/24 21:35 Temperature 97.8 F Pulse Rate 76 77 86 Respiratory Rate 16 Blood Pressure 170/91 H Pulse Oximetry 96 96 99 Oxygen Delivery Method Room Air 04/11/24 21:36 04/11/24 21:36 04/11/24 22:00 Temperature Pulse Rate 84 77 Respiratory Rate 18 Blood Pressure 146/79 H Pulse Oximetry 97 98 Oxygen Delivery Method 04/11/24 22:30 04/11/24 22:40 04/11/24 22:40 Temperature Pulse Rate 86 89 Respiratory Rate Blood Pressure 154/95 H Pulse Oximetry 98 96 Oxygen Delivery Method Oxygen Delivery Method Room Air Const Other: in no distress, at bedside HENMT Other: atraumatic Eyes Other: normal inspection Neck Other: supple Resp Other: normal respiratory effort Cardio Other: RRR GI Other: w/o distension Skin Other: w/o rashes Neuro Other: w/o acute focal weakness or sensory deficits Extrem Other: shortened, rotated Lt leg, tender left hip Psych Other: anxious Objective ECG Impression: NSR, old anterior VT Labs 04/11/24 22:40 04/11/24 22:40 Labs: Laboratory Results - last 24 hr 04/11/24 22:40 WBC 10.4 RBC 4.06 L Hgb 15.4 Hct 42.3 MCV 104.2 H MCH 37.9 H MCHC 36.4 H RDW 14.2 Plt Count 276 Neut % (Auto) 80.8 H Lymph % (Auto) 11.6 L [place] % (Auto) 6.8 Eos % (Auto) 0.2 L Baso % (Auto) 0.6 Neut # (Auto) 8400 H Lymph # (Auto) 1200 [place] # (Auto) 700 Eos # (Auto) 0 Baso # (Auto) 100 Sodium 133 L Potassium 2.8 L Chloride 96 L Carbon Dioxide 22 BUN 5 L Creatinine 0.86 Estimated GFR > 60 BUN/Creatinine Ratio 5.8 L Glucose 146 H Calcium 8.2 L Magnesium 1.0 L Assessment & Plan Assessment and plan (1) Closed fracture of left hip: Status: Acute (2) Hypokalemia: Status: Acute (3) Hypomagnesemia: Status: Acute (4) Cerebellar ataxia: Problem details: Per neurology [facility] Status: Chronic (5) Essential hypertension: Status: Chronic (6) Coronary artery disease involving [place] coronary artery of [place] heart without angina pectoris: Status: Chronic (7) Mixed hyperlipidemia: Problem details: Statin intolerant, on Rapatha Status: Chronic (8) Impaired glucose tolerance: Status: Chronic (9) GERD without esophagitis: Status: Chronic Assessment & Plan narrative: Lt Intertrochanteric Fracture - NPO since the admission - pain management, IVFs - possible ORIF in AM Hypokalemia / Hypomagnesemia - EKG NSR - supplemented with 60 mEq of KCl IV, 60 mEq of KCl PO and 2 g of MgS over night, K up from 2.8 to 3.8, Mg up from 1 to 1.5 - additional 40 mEq of KCl and 2 g of MgS at 7 am - BMP monitored, next at 11 AM - on telemetry, w/o arrhythmias Cerebelar Ataxia - longstanding, debilitating, causing fall and hip fracture - follows with neurology - PT, OT HTN, CAD, Hx of CVA, Bilateral Carotid Stenosis - at home on Lisinopril, ASA, BB, Repatha, fenofibrate Macrocytosis - B12, FA levels pending Mixed HLD - intolerant of statins, on monthly Repatha and fenofibrate GERD - PPI Impaired Glucose Tolerance - A1C pending DVT prophylaxis -SCDs Time-Based Coding :: [TOTAL MINUTES] spent with patient and on the chart (including review of chart, obtaining history, exam, reviewing outside data, placing orders, documenting exam and treatment plan, and counseling patient) on [DATE].
[2024-04-12 00:31] LABS: Macrocytosis 2+
[2024-04-12 00:32] LABS: Platelet Estimate Adequate on smear
[2024-04-12] MEDS: MAGNESIUM SULFATE 2 GM/50 ML PIGGYBACK IV ×2 (00:37→07:00)
[2024-04-12] MEDS: POTASSIUM CHLORIDE IN WATER 10 MEQ/100 ML PIGGYBACK 100 MEQ IV ×7 (01:12→08:32)
--- NOTE | 2024-04-12 01:20 | PC.NURSE ---
Addendum entered by Cassidy Manley R.N. 04/12/24 06:41: Patient had x1 episode of nausea & produced 500cc emesis, patient states that he experiences nausea daily and often throws up once a day d/t his ataxia. Declines anti-nausea medication for now, states that he feels much better. 12-lead EKG complete. Cont tele in place. Original Note: park interpretive specialist: Patient arrived at approximately 2300, accompanied by (Violeta). Patient is AxOx4, VSS, O2 saturation 98% on RA. States that pain is controlled with ordered medications at rest, pain sharply increases when moving. CMS intact. Patient denies SOB, CP, nausea. States that he has dizziness almost constantly for past 3 years. Notified MD Germain of low potassium & magnesium. MD spoke with patient & family. NPO at midnight. Oriented to call-light, plan of care ongoing.
[2024-04-12] MEDS: HYDROMORPHONE 0.5 MG INJ 1 MG IV (05:52)
--- NOTE | 2024-04-12 06:22 | EKG_ITS ---
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
[2024-04-12 06:35] LABS: Add Manual Diff / Slide Review NO; Basophils Absolute Auto 100 /uL (0-100); Basophils Percent Auto 0.5 % (0-2); Eosinophils Absolute Auto 0 /uL (0-450); Eosinophils Percent Auto 0.2 % (2-4); Hematocrit 41.5 % (41-53); Hemoglobin 14.6 g/dL (13.5-17.5); Lymphocytes Absolute Auto 1800 /uL (1100-4500); Lymphocytes Percent Auto 15.2 % (25-40); Mean Corpuscular HGB Conc 35.1 % (30-36); Mean Corpuscular Hemoglobin 37.2 PG (26-34); Mean Corpuscular Volume 106.1 fL (80-100); Monocytes Absolute Auto 1000 /uL (0-900); Monocytes Percent Auto 8.6 % (3-14); Neutrophils Absolute Auto 8800 /uL (1500-7000); Neutrophils Percent Auto 75.5 % (50-75); Platelet Count 287 X10^3/uL (150-400); Red Blood Cell Count 3.91 X10^6/uL (4.5-5.9); Red Cell Distribution Width 14.1 % (11.6-14.8); White Blood Cell Count 11.6 X10^3/uL (4.5-11.0)
[2024-04-12 06:40] LABS: BUN Creatinine Ratio 5.5 (6-22); Blood Urea Nitrogen 5 mg/dL (9-20); Calcium 7.7 mg/dL (8.4-10.2); Carbon Dioxide 24 mmol/L (22-32); Chloride 97 mmol/L (98-107); Estimated Glomerular Filt Rate > 60 mL/min (>60); Glucose 127 mg/dL (80-110); HEMOLYSIS < 15 (0-50); Magnesium 1.5 mg/dL (1.6-2.3); Potassium 3.8 mmol/L (3.4-5.1); Sodium 132 mmol/L (137-145)
--- NOTE | 2024-04-12 07:32 | PM.PN.1 ---
Subjective Subjective Interval history: From night doctor: 69 y/o with PMH of HTN, CAD, HLD, GERD, Hx of CVA, cerebellar ataxia and prior falls, sustained fall in the bathroom and fractured left hip. A fall was associated with ataxia that is seriously affecting his mobility since several years ago. Followed by neurology. Xray / CT showing comminuted and displaced fracture involving intertrochanteric region of left proximal femur.In addition, he presented hypokalemic and hypomagnesemic. Admitted NPO in anticipation of ORIF in AM. S: He denies any dyspnea or chest pain. He was having a fair amount of hip pain and spite of his pain medications. He was scheduled to go to the operating room in the next 30 minutes. Exam Vital Signs (past 8 hours): - 04/12/24 00:28 04/12/24 04:30 Temperature 97.7 F Pulse Rate 85 Respiratory Rate 19 Blood Pressure 142/81 H Pulse Oximetry 96 Oxygen Delivery Method Room Air Oxygen Flow Rate 0 Oxygen Delivery Method Room Air Oxygen Flow Rate 0 Narrative Exam Narrative: NAD, alert and oriented. Fluent speech. Lungs are clear, normal rate and effort. Heart is regular, no murmur gallop or rub. Abdomen is soft, non distended. Extremities are free of edema. Objective ECG Impression: Normal sinus rhythm Cannot rule out Anterior infarct , age undetermined Imaging Multiple studies:: Radiologist's impression: Leg CT: 1. Acute comminuted and displaced fracture involving intertrochanteric region of left proximal femur as described above. No other fracture or dislocation. 2. Osteoarthritic changes throughout bony pelvis. No evidence of avascular necrosis of femoral head. No suspicious bony lesions. 3. Soft tissue swelling and edema surrounding left proximal femoral fracture site with suggestion of intramuscular hematoma involving left iliacus muscle and left gluteus muscles. No discrete drainable fluid collection. No abnormal soft tissue calcifications. No pelvic free fluid or free air. Hip x-ray: Acute comminuted and slightly displaced intertrochanteric fracture involving left proximal femur. Moderate bilateral hip joint osteoarthritis. No evidence of avascular necrosis. Labs 04/12/24 04:30 04/12/24 04:30 Labs: Laboratory Results - last 24 hr 04/11/24 04/12/24 22:40 04:30 WBC 10.4 11.6 H RBC 4.06 L 3.91 L Hgb 15.4 14.6 Hct 42.3 41.5 MCV 104.2 H 106.1 H MCH 37.9 H 37.2 H MCHC 36.4 H 35.1 RDW 14.2 14.1 Plt Count 276 287 Neut % (Auto) 80.8 H 75.5 H Lymph % (Auto) 11.6 L 15.2 L [place] % (Auto) 6.8 8.6 Eos % (Auto) 0.2 L 0.2 L Baso % (Auto) 0.6 0.5 Neut # (Auto) 8400 H 8800 H Lymph # (Auto) 1200 1800 [place] # (Auto) 700 1000 H Eos # (Auto) 0 0 Baso # (Auto) 100 100 Platelet Estimate Adequate on smear RBC Morphology See below Macrocytosis 2+ H Sodium 133 L 132 L Potassium 2.8 L 3.8 Chloride 96 L 97 L Carbon Dioxide 22 24 BUN 5 L 5 L Creatinine 0.86 0.91 Estimated GFR > 60 > 60 BUN/Creatinine Ratio 5.8 L 5.5 L Glucose 146 H 127 H Calcium 8.2 L 7.7 L Magnesium 1.0 L 1.5 L PFSH Medical History Cerebellar ataxia GERD without esophagitis Irritable bowel syndrome Coronary artery disease involving [place] coronary artery of [place] heart without angina pectoris Personal history of stroke with current residual effects (~2005) Mixed hyperlipidemia Essential hypertension Coronary artery disease Surgical History S/P foot surgery (~1966) H/O heart artery stent (~08/2016) S/P tonsillectomy (~1962) Social History household members: spouse Smoking Status: Former smoker Assessment & Plan Assessment & Plan narrative: 1. Lt Intertrochanteric Fracture, present on admission and active 2. Hypokalemia / Hypomagnesemia, present on admission and active - EKG NSR - supplemented with 60 mEq of KCl IV, 60 mEq of KCl PO and 2 g of MgS over night, K up from 2.8 to 3.8, Mg up from 1 to 1.5 - additional 40 mEq of KCl and 2 g of MgS at 7 am 3. Cerebelar Ataxia, present on admission and stable - longstanding, debilitating, causing fall and hip fracture - follows with neurology - PT, OT 4. HTN, present on admission and active - at home on Lisinopril, ASA, BB, Repatha, fenofibrate 5. CAD, present on admission and active. 6. Hx of CVA, present on admission and active 7. Bilateral Carotid Stenosis, present on admission and active 8. Macrocytosis, present on admission and active - B12, FA levels pending 9. Mixed HLD, present on admission and stable - intolerant of statins, on monthly Repatha and fenofibrate 10. GERD, present on admission stable - PPI 11. Impaired Glucose Tolerance, present on admission and stable. - A1C pending PLAN: -operative repair of fracture this morning. -anticipate aspirin b.i.d. for prophylaxis postoperatively. -continue to monitor and replace magnesium and calcium as needed. -resume blood pressure medications after surgery and other routine medications. -monitor for postoperative chest pain or dyspnea. DVT prophylaxis -SCDs Full code Inpatient status, anticipate a 2 midnight need for hospital services. THEODORA is 04/15. Time-Based Coding :: [TOTAL MINUTES] spent with patient and on the chart (including review of chart, obtaining history, exam, reviewing outside data, placing orders, documenting exam and treatment plan, and counseling patient) on [DATE].
[2024-04-12] MEDS: PANTOPRAZOLE 40 MG VIAL IV (08:32)
[2024-04-12] MEDS: ONDANSETRON 4 MG/2 ML INJ IV (09:26)
--- NOTE | 2024-04-12 09:42 | PM.CN ---
History of Present Illness Consult details Date Patient Seen: 04/12/24 Time Patient Seen: 09:42 Chief complaint: GLF L hip pain Reason for consult: hip fracture Requesting provider: Raymond Blair Narrative: Mr. Manrique is a 69 yo M with chronic idiopathic ataxia with ground level fall in the bathroom yesterday into his bathtub. He sustained left hip fracture and was transferred to ER via EMS. After ER work up, orthopedic service was consulted for additional treatment of his left hip fracture. Meds Home Medications and Allergies Home Medications Medication Instructions Recorded Confirmed Type metoprolol tartrate 25 mg tablet 25 mg PO DAILY 10/23/21 04/12/24 History nitroglycerin 0.4 mg sublingual 0.4 mg sublingual Q5M PRN chest 07/26/22 04/12/24 Rx tablet pain #90 tabs calcium carbonate 500 mg PO PRN PRN Heartburn 03/26/23 04/12/24 History docusate sodium 50 mg tablet 50 mg PO PRN PRN Constipation 03/26/23 04/12/24 History vitamin B complex (B 1 tab PO DAILY 03/26/23 04/12/24 History Complex-Vitamin B12 tablet) aspirin 81 mg tablet,delayed 81 mg PO DAILY 11/12/23 04/12/24 History release AcipHex 20 mg tablet,delayed 20 mg PO DAILY #90 tabs 01/17/24 04/12/24 Rx release (rabeprazole) fenofibrate nanocrystallized 48 mg 48 mg PO BID #180 tabs 03/25/24 04/12/24 Rx tablet lisinopril 20 mg tablet 20 mg PO DAILY #90 tabs 03/25/24 04/12/24 Rx Allergies Allergy/AdvReac Type Severity Reaction Status Date / Time Bmcumms-EIY-NrN Reductase AdvReac Severe unknown Verified 11/12/23 15:02 Inhibitor COVID-19 vacc, bv (Orig, AdvReac rash Verified 11/12/23 15:02 Omicron BA.4/5) (Moderna) [From Moderna COVID Bival(6m up)(PF)] Review of Systems Review of Systems ROS: Yes All systems reviewed with the patient and are negative except as otherwise documented Exam Vital Signs (past 8 hours): - 04/12/24 04:30 04/12/24 08:00 Temperature 97.7 F 97.9 F Pulse Rate 85 86 Respiratory Rate 19 12 Blood Pressure 142/81 H 138/84 Pulse Oximetry 96 97 Oxygen Flow Rate 0 0 Oxygen Delivery Method Room Air Oxygen Flow Rate 0 Extrem Other: LLE with shortened and IR position, pain with movement. Neurovascularly intact. Increased swelling to left hip. Skin intact. Objective Imaging hip x-ray: My impression: Left femur with displaced and angulated intertrochanteric fracture. CT left hip: My impression: comminuted, mildly displaced left femur intertrochanteric fracture. Moderate left hip DJD. Labs 04/12/24 04:30 04/12/24 04:30 Labs: Laboratory Results - last 24 hr 04/11/24 04/12/24 22:40 04:30 WBC 10.4 11.6 H RBC 4.06 L 3.91 L Hgb 15.4 14.6 Hct 42.3 41.5 MCV 104.2 H 106.1 H MCH 37.9 H 37.2 H MCHC 36.4 H 35.1 RDW 14.2 14.1 Plt Count 276 287 Neut % (Auto) 80.8 H 75.5 H Lymph % (Auto) 11.6 L 15.2 L [place] % (Auto) 6.8 8.6 Eos % (Auto) 0.2 L 0.2 L Baso % (Auto) 0.6 0.5 Neut # (Auto) 8400 H 8800 H Lymph # (Auto) 1200 1800 [place] # (Auto) 700 1000 H Eos # (Auto) 0 0 Baso # (Auto) 100 100 Platelet Estimate Adequate on smear RBC Morphology See below Macrocytosis 2+ H Sodium 133 L 132 L Potassium 2.8 L 3.8 Chloride 96 L 97 L Carbon Dioxide 22 24 BUN 5 L 5 L Creatinine 0.86 0.91 Estimated GFR > 60 > 60 BUN/Creatinine Ratio 5.8 L 5.5 L Glucose 146 H 127 H Hemoglobin A1c 5.0 Calcium 8.2 L 7.7 L Magnesium 1.0 L 1.5 L PFSH Medical History Cerebellar ataxia GERD without esophagitis Irritable bowel syndrome Coronary artery disease involving [place] coronary artery of [place] heart without angina pectoris Personal history of stroke with current residual effects (~2005) Mixed hyperlipidemia Essential hypertension Coronary artery disease Surgical History S/P foot surgery (~1966) H/O heart artery stent (~08/2016) S/P tonsillectomy (~1963) Social History household members: spouse Tobacco & Substance Use Smoking Status: Former smoker Assessment & Plan Assessment & Plan narrative: Mr. Manrique is a 69 yo M with left femur intertrochanteric fracture sustained from ground level fall due to chronic ataxia. I discussed plan for his treatment along with risks and benefits of surgery. Risks for surgery include but not limited to bleeding, infection, nerve/blood vessel injury, additional fracture, hardware complications, need for additional surgery, nonunion, malunion, pain, even . Patient understands and would like to proceed with surgery. I scheduled him for left femur ORIF with IMN. Time-Based Coding :: [TOTAL MINUTES] spent with patient and on the chart (including review of chart, obtaining history, exam, reviewing outside data, placing orders, documenting exam and treatment plan, and counseling patient) on [DATE].
[2024-04-12] MEDS: LACTATED RINGERS 1,000 ML 42 ML IV (09:50)
--- NOTE | 2024-04-12 10:04 | PM.OP.1 ---
Operative Date/Time/Diagnoses Date of procedure: 04/12/24 Time of procedure: 10:04 Pre-op diagnosis: 1. Left femur intertrochanteric fracture Post-op diagnosis: same Procedure & Clinicians Procedure: 1. Left femur open reduction internal fixation with intramedullary device Same procedure as scheduled: Yes Indications: Mr. Manrique is a 69 yo M with ground level fall. He sustained a displaced, angulated left femur intertrochanteric fracture. After discussing risks and benefits of surgery, patient was scheduled emergently for left hip ORIF with IMN. Surgeon: Cinthya Greene Click Yes if Unassisted: Yes Anesthesia Type: General Operative Notes Closure Type: primary Specimen(s): none sent Prosthetic devices, grafts, tissues, transplants, or devices: S&N intertan IMN Estimated Blood Loss (mL): 100 Blood products transfused: none Procedure in detail: Patient was seen in the preoperative area. Risks and benefits of the surgery was discussed with the patient. Informed consent was obtained from the patient and placed in the chart. Surgical site was marked. Patient was taken to the operative room. General anesthesia was administered. Prophylactic antibiotic was given to the patient less than 30 min before the incision was made. Patient was placed into a supine position on the [place] table. Time-out was performed at this time. Using the fracture table, a closed reduction maneuver was performed to the left proximal femur fracture. This was done by distracting internally rotating and adducting the left hip. After the fracture reduction was completed and confirmed with AP and lateral C-arm imaging, Patient's hip was then prepped and draped in the sterile fashion. A 3 in incision just proximal to the greater trochanter was made on the lateral aspect of the patient's hip. Starting guidewire was inserted through the incision onto the greater trochanter. The guidewire was driven into the intramedullary canal and confirmed with AP and lateral C-arm imaging. The canal opening Reamer was used to open the canal from the proximal to distal fashion. A 11.5 mm 125 degree nail with a length of 18 cm was assembled on the back table and inserted into the mid intramedullary canal from a proximal distal fashion. The lateral targeting guide was used to place the cephalomedullary device by placing a lateral incision after targeting guide was used to measure the location of the incision. The fascia was incised in line with skin incision the targeting guide was inserted and docked onto the lateral aspect of the lateral cortex of the proximal femur and a guidewire was drilled through the lateral cortex into the femoral head through the femoral neck in the center location on both AP and lateral imaging. Depth gauge was used to measure the length of the cephalomedullary device a 105 mm cephalomedullary screw was chosen and placed through the lateral cortex into the femoral head through the IM nail. A 2nd locking screw was placed through the lateral cortex and femoral neck into the femoral after drilling and measuring the screws 100 mm in length. AP and lateral imaging was used to confirm placement of both cephalomedullary screws. And good placement and stabilization of the fracture was accomplished using the cephalomedullary device with a appropriate tip apex distance. A distal locking screw was then placed using the same targeting guide after drilling in bicortical fashion. Depth gauge was used to measure the length. 35 mm screw was inserted. After all the hardware was placed, AP and lateral C-arm imaging was used to confirm placement of the hardware and reduction of the fracture. Good placement of the hardware and good reduction of the fracture was confirmed. The wound was then irrigated with sterile normal saline. The deep fascia was closed with 1-0 Vicryl, subcutaneous tissue was closed with 2-0 Vicryl and skin was closed with skin cecile. Sterile dressing was applied the patient's skin and patient was woken up from sedation and transferred to recovery room stable condition. Complications: none Post-operative Condition: stable Disposition: PACU Plan for aftercare: Admit to inpatient hospital
[2024-04-12] MEDS: ACETAMINOPHEN IV 1,000 MG/100 ML VIAL 400 MG IV (10:20)
[2024-04-12] MEDS: CEFAZOLIN VIAL 2 GM in SODIUM CHLORIDE 0.9% 100 ML IV (10:23)
--- NOTE | 2024-04-12 10:31 | SUR.OPER ---
Supine on padded [place] table with bilateral legs secured in padded positioning boots and suspended in positioning spars, operative leg in traction per surgeon. Head on one pillow. Arm on non-operative side secured on padded armboard <90 degrees abduction. Arm on operative side padded and resting across chest then secured with tape over sheet. Padded perineal post in place per surgeon.
[2024-04-12] MEDS: BUPIVACAINE 0.5% (PF) 30 ML, EPINEPHrine 0.15 MG INJ (10:52)
--- NOTE | 2024-04-12 11:10 | CM.DANOTE ---
B DCP Assessment Note Pt is a 69yo M with a PMH of HTN, CAD, HLD, GERD, Hx of CVA, cerebellar ataxia and prior falls, sustained fall in the bathroom and fractured left hip. Plan is for OR Saturday for repair PCP Lawrence De La Fuente and self pay ETHNOLOGY PROFESSOR reviewed EMR. Per RN report, pt's cerebellar ataxia is the likely cause of his falls. Lives with spouse at home in [place], single level home that is set up for his falls. Ambulation at baseline unknown at this time. Pt in surgery during attempted assessment. PT/OT evals pending post op for therapy recs. P: DCP Pending post op PT/OT recs and family preference. May need SNF placement vs home with spouse support. CM team will continue to follow closely REESE Wall Discharge Planning/Care Management CM Discharge Assessment Start: 04/12/24 11:06 Freq: Status: Active Protocol: Document 04/12/24 11:06 (Rec: 04/12/24 11:09 [id number]) Discharge Planning Assessment Assigned Distillery Worker General REESE Muñoz DPOA/Assigned Designee Name yves Mcdaniel Contact Information [phone] Advance Directives? No History Provided By Patient,Family Member Prior Living Arrangements House Household Members spouse Additional Comment pending post op PT/OT and family preferences Whiteboard Updated in Patient Room with No name and ext. # of Distillery Worker General Review Status In Process Please Provide Date Initial DC 04/12/24 Assessment Was Performed Next Review Type Continued Stay Review
[2024-04-12] MEDS: HYDROMORPHONE 1 MG INJ IV ×2 (12:10→12:18)
[2024-04-12] MEDS: OXYCODONE IR 5 MG TABLET PO ×2 (12:11→17:38)
--- NOTE | 2024-04-12 12:30 | SUR.PHASEI ---
Transferred patient from PACU to room 209 in stable condition; VSS; no distress noted at time of transfer.
[2024-04-12] MEDS: lisinopriL 20 MG TABLET PO (13:29)
[2024-04-12 13:38] LABS: BUN Creatinine Ratio 5.7 (6-22); Blood Urea Nitrogen 6 mg/dL (9-20); Calcium 7.9 mg/dL (8.4-10.2); Carbon Dioxide 27 mmol/L (22-32); Chloride 96 mmol/L (98-107); Estimated Glomerular Filt Rate > 60 mL/min (>60); Glucose 177 mg/dL (80-110); HEMOLYSIS < 15 (0-50); Potassium 4.3 mmol/L (3.4-5.1); Sodium 130 mmol/L (137-145)
[2024-04-12] MEDS: CEFAZOLIN 2 GM/100 ML PREMIX 100 ML IV (17:39)
[2024-04-12 19:27] LABS: Folate 1.7 ng/mL (2.76-20.0); Vitamin B12 718 pg/mL (239-931)
[2024-04-12] MEDS: SENNOSIDES 8.6 MG TABLET 17.2 MG PO (20:48)
[2024-04-12] MEDS: FENOFIBRATE, MICRONIZED 67 MG CAPSULE PO (20:48)
[2024-04-12] MEDS: ACETAMINOPHEN 325 MG TABLET 650 MG PO (20:48)
[2024-04-12] MEDS: OXYCODONE IR 10 MG TABLET PO (20:49)
[2024-04-12] MEDS: DOCUSATE 100 MG CAPSULE PO (20:49)
[2024-04-12] MEDS: ASPIRIN EC 81 MG TABLET PO (20:50)
[2024-04-13 00:06] VITALS: BP 145/81; PULSE 74; RESP 18; TEMP 36.5; O2SAT 95
[2024-04-13] MEDS: CEFAZOLIN 2 GM/100 ML PREMIX 100 ML IV (02:09)
[2024-04-13] MEDS: LACTATED RINGERS 1,000 ML 100 ML IV (02:50)
[2024-04-13 05:35] VITALS: BP 159/87; PULSE 72; RESP 18; TEMP 36.5; O2SAT 96
[2024-04-13 06:17] LABS: Hematocrit 37.4 % (41-53); Hemoglobin 13.3 g/dL (13.5-17.5); Mean Corpuscular HGB Conc 35.6 % (30-36); Mean Corpuscular Volume 106.7 fL (80-100); Platelet Count 290 X10^3/uL (150-400); Red Blood Cell Count 3.51 X10^6/uL (4.5-5.9); White Blood Cell Count 11.5 X10^3/uL (4.5-11.0)
[2024-04-13 06:32] LABS: Alanine Aminotransferase 14 IU/L (<50); Albumin 3.1 g/dL (3.5-5.0); Albumin Globulin Ratio 1.1 (1.0-2.8); Alkaline Phosphatase 64 U/L (38-126); Aspartate Aminotransferase 25 IU/L (17-59); BUN Creatinine Ratio 10.9 (6-22); Bilirubin Total 0.9 mg/dL (0.2-1.3); Blood Urea Nitrogen 10 mg/dL (9-20); Calcium 7.7 mg/dL (8.4-10.2); Carbon Dioxide 28 mmol/L (22-32); Chloride 99 mmol/L (98-107); Estimated Glomerular Filt Rate > 60 mL/min (>60); Globulin 2.9 g/dL (1.7-4.1); Glucose 140 mg/dL (80-110); HEMOLYSIS < 15 (0-50); Magnesium 1.8 mg/dL (1.6-2.3); Potassium 3.9 mmol/L (3.4-5.1); Sodium 132 mmol/L (137-145)
--- NOTE | 2024-04-13 06:47 | PC.NURSE ---
Home medication: Rabeprazole (Aciphex) sent to pharmacy for verification
[2024-04-13 08:00] VITALS: BP 169/91; PULSE 80; RESP 20; TEMP 36.8; O2SAT 96
[2024-04-13 08:01] VITALS: O2SAT 96
[2024-04-13] MEDS: RABEPRAZOLE 20 MG PO (08:06)
[2024-04-13] MEDS: ASPIRIN EC 81 MG TABLET PO ×2 (09:19→21:13)
[2024-04-13] MEDS: FENOFIBRATE, MICRONIZED 67 MG CAPSULE PO ×2 (09:19→21:13)
[2024-04-13] MEDS: HYDROMORPHONE 2 MG TABLET PO ×2 (09:19→11:56)
[2024-04-13] MEDS: METOPROLOL IR 25 MG TABLET PO (09:19)
[2024-04-13] MEDS: lisinopriL 20 MG TABLET PO (09:19)
[2024-04-13] MEDS: DOCUSATE 100 MG CAPSULE PO ×2 (09:19→21:13)
--- NOTE | 2024-04-13 11:30 | OT.IP.EVAL ---
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) Essential (primary) hypertension (04/11/24) Atherosclerotic heart disease of [place] coronary artery without angina pectoris (04/11/24) Gastro-esophageal reflux disease without esophagitis (04/11/24) Impaired glucose tolerance (oral) (04/11/24) Fracture of unspecified part of neck of left femur, initial encounter for closed fracture (04/11/24) Surgery Performed Operation Date: 04/12/24 10:00 Actual Procedures p Intramedullary Nailing Femur(Left) - Cinthya Greene MD Past Medical History (Last Reviewed 04/12/24 @ 09:43 by Cinthya Greene MD) Cerebellar ataxia Coronary artery disease Coronary artery disease involving [place] coronary artery of [place] heart without angina pectoris Essential hypertension GERD without esophagitis Irritable bowel syndrome Mixed hyperlipidemia Personal history of stroke with current residual effects (~2005) Surgical History (Last Reviewed 04/12/24 @ 09:43 by Cinthya Greene MD) H/O heart artery stent (~08/2016) S/P foot surgery (~1966) S/P tonsillectomy (~1962) Occupational Therapy Inpatient Evaluation/Re-Eval M1 PT/OT-IP Prior Functional Status Start: 04/13/24 10:14 Freq: NEEDED Status: Active Protocol: Document 04/13/24 12:38 CGR (Rec: 04/13/24 12:48 CGR [id number]) Medical Review Prior Functional Status Medical History Reviewed Yes Diet/Fluid Consistency Regular Communication WNLs Mobility and Gait I, some imbalance d/t cerebellar issues but did not use AD, fall resulting in left hip fracture Activities of Daily Living and IADL's Retired and did not drive d/t visual issues and uses special lenses for some work and using computer. Pt is IND in all ADLs and does the driving. Social History Household Members spouse Living Arrangements House Number of Floors (Floors) One Floor Number of Stairs To Enter/Railing? Ramp to enter the shop but no steps to enter the home. Home Environment Standard Height Toilet,Walk in Shower,Built-In Shower Seat Home Equipment Grab Bars In Shower Employment Status Retired M2 OT-IP Current Condition Start: 04/13/24 12:38 Freq: Status: Active Protocol: Document 04/13/24 12:38 CGR (Rec: 04/13/24 12:48 CGR [id number]) Occupational Therapy Current Condition Current Condition Evaluation Date 04/13/24 Treatment Diagnosis GLF with L femur fx, 04/12 ORIF w/ IM nailing. Diagnosis Onset Date 04/11/24 Weight Bearing Status Weight Bearing Status Weight Bear as Tolerated M3 OT- IP Subjective and Pain Start: 04/13/24 12:38 Freq: Status: Active Protocol: Document 04/13/24 12:38 CGR (Rec: 04/13/24 12:48 CGR [id number]) OT- Subjective Occupational Therapy Visit Type Type Initial Evaluation Visit Start Time 10:37 Visit Stop Time 11:30 Notes Partial co-treat with P.T., pt 's present throguhout session. OT Pain Assessment Pain When Pain Assessed During Mobility Pain Present Pain Present Pain Reported Location Left hip Intensity 10 Scale Used Numeric (0 - 10) Management Techniques Modification of Treatment,Re- positioning,Timing of Activity with Medications M4 OT- IP ADL's Start: 04/13/24 12:38 Freq: Status: Active Protocol: Document 04/13/24 12:38 CGR (Rec: 04/13/24 12:48 CGR [id number]) OT [id number] Comments OT Self-Feeding Comments not meal time OT ADL-Grooming Comments OT Grooming Comments not performed OT ADL-Oral Care Comments Oral Care Comments pt declined OT ADL-Dressing General Eval Lower Body Dressing Ability Total Assistance Areas Needing Assistance Socks OT ADL-Toileting General Evaluation Toileting Ability Standby Assistance Devices Toileting Assistive Devices Urinal OT ADL-Bathing Comments OT Bathing Comments not performed M5 OT- IP IADL's Start: 04/13/24 12:38 Freq: Status: Active Protocol: Document 04/13/24 12:38 CGR (Rec: 04/13/24 12:48 CGR [id number]) OT-Instrumental Activities of Daily Living Deficits IADL Deficits Identified No Deficits Home Safety Awareness Awareness of Need for Assistance at Home Good Awareness Ability to Problem Solve Emergency Able to Problem Solve Situations Medication Management Medication Management No Deficits Identified Money Management Money Management No Deficits Identified Meal Preparation Meal Preparation No Deficits Identified Research Chemical Engineer Research Chemical Engineer Caregiver Provides Assist Driving Driving Comments Pt does not drive at baseline. M6 OT- IP Functional Cognition Start: 04/13/24 12:38 Freq: Status: Active Protocol: Document 04/13/24 12:38 CGR (Rec: 04/13/24 12:48 CGR [id number]) Cognitive Factors Limiting Selfcare Function Cognitive Ability Level of Alertness Alert Patient Orientation Name,Age,Birthday,Month,Date, Year,Day of Week,Place, Situation Attention Span Ability Capable of Focused Attention, Capable of Sustained Attention Ability to Follow Commands Able to Follow One Step Commands with Increased Time, Able to Follow One Step Commands with Repetition OT- Vision and Hearing OT- Hearing Assessment OT- Hearing Assessment WFL OT- Vision Assessment Visual Acuity Glasses All The Time Visual Attentiveness WFL Visual Convergence Impaired Vision Assessment Comments Pt without smooth persuits. M7 OT- IP Mobility and Balance Start: 04/13/24 12:38 Freq: Status: Active Protocol: Document 04/13/24 12:38 CGR (Rec: 04/13/24 12:48 CGR [id number]) OT- Bed Mobility Assessment Supine to Sit Supine to Sit Assist Contact Guard Assistance,Head of Bed Elevated,Bedrails Scooting Scooting to Edge of Bed Contact Guard Assistance OT-Transfer Assessment Sit to and From Stand Sit to and from Stand Maximum Assistance,2 Person Assistance Transfers Transfer Ability Maximum Assistance,2 Person Assistance Technique Transfer Destination Bed,Chair Transfer Technique Stand Step Pivot Devices Transfer Assistive Devices Gait Belt,Front Wheeled Walker Comments Mobility Comments Pt with significant pain with all LLE movement but states that pain is 0 when not moving . OT- Gait Assessment Gait Gait Assistance Required: Maximum Assistance,2 Person Assist Distance (Feet) 3 Able to Maintain Weight Bearing Status Yes During Gait Assistive Devices Assistive Device Gait Belt,Front Wheeled Walker OT- Balance Assessment Sitting Balance and Reactions Static Sitting Balance Ability Good Dynamic Sitting Balance Ability Good M8 OT- IP Objective Assessments Start: 04/13/24 12:38 Freq: Status: Active Protocol: Document 04/13/24 12:38 CGR (Rec: 04/13/24 12:48 CGR [id number]) OT Gross Range of Motion Upper Extremity Range of Motion Assessment Within Functional Limits OT Strength Upper Extremity Strength Assessment Within Functional Limits Comments Strength Comments grossly 5/5 OT- Coordination Assessment Upper Extremity Finger to Nose Test Within Functional Limits Finger Tapping Test Within Functional Limits OT-Muscle Tone Assessment Muscle Tone WNL Yes OT Sensation Assessment Edema Edema Absent M9 OT- IP Assessment and Plan Start: 04/13/24 12:38 Freq: Status: Active Protocol: Document 04/13/24 12:38 CGR (Rec: 04/13/24 12:48 CGR [id number]) OT Summary Assessment and Plan Potential Rehabilitation Potential Good Analytic Complexity at Evaluation Moderate Summary OT Impairments Pain,Balance,Functional Mobility,Grooming,Dressing, Toileting,Bathing,Toilet Transfers,Shower Transfers, Activity Tolerance Progress Towards Goals Slow Progress due to Pain,Slow Progress due to Activity Tolerance Assessment Summary Pt presents as a moderate complexity evaluation s/p admit for fall with ORIF and IM Nailing. Pt needing max x 2 for mobility with transferring to the chair today. Discussed at length the SNF process and safe planning for discharge. Pt will likely need SNF at discharge. Goals Grooming Goal Independent Dressing Goal Independent Toileting Goal Independent Bathing Goal Independent Toilet Transfer Goal Independent Shower Transfer Goal Independent Days to Meet Goals 20 Frequency of Treatment Other frequency 5x a week Treatment Plan OT Treatment Plan ADL Training,Functional Mobility,Patient/Family Education,Discharge Planning Other Treatment Recommendations and Next ADLs seated Treatment Focus Discharge Recommendations OT Discharge Recommendations SNF Rehab Transportation Needs at Discharge Wheelchair/Cabulance
--- NOTE | 2024-04-13 11:35 | PT.IIE ---
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) Essential (primary) hypertension (04/11/24) Atherosclerotic heart disease of [place] coronary artery without angina pectoris (04/11/24) Gastro-esophageal reflux disease without esophagitis (04/11/24) Impaired glucose tolerance (oral) (04/11/24) Fracture of unspecified part of neck of left femur, initial encounter for closed fracture (04/11/24) Surgery Performed Operation Date: 04/12/24 10:00 Actual Procedures p Intramedullary Nailing Femur(Left) - Cinthya Greene MD Surgical History (Last Reviewed 04/12/24 @ 09:43 by Cinthya Greene MD) H/O heart artery stent (~08/2016) S/P foot surgery (~1966) S/P tonsillectomy (~1962) Medical History (Last Reviewed 04/12/24 @ 09:43 by Cinthya Greene MD) Cerebellar ataxia Coronary artery disease Coronary artery disease involving [place] coronary artery of [place] heart without angina pectoris Essential hypertension GERD without esophagitis Irritable bowel syndrome Mixed hyperlipidemia Personal history of stroke with current residual effects (~2005) Physical Therapy Inpatient Evaluation/Re-Eval M1 PT/OT-IP Prior Functional Status Start: 04/13/24 10:14 Freq: NEEDED Status: Active Protocol: Document 04/13/24 10:40 MB (Rec: 04/13/24 11:35 MB [id number]) Medical Review Prior Functional Status Medical History Reviewed Yes Diet/Fluid Consistency Regular Communication WNLs Mobility and Gait I, some imbalance d/t cerebellar issues but did not use AD, 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 Ramp to enter Home Environment Standard Height Toilet,Walk in Shower,Built-In Shower Seat Home Equipment Grab Bars In Shower Employment Status Retired M2 PT-IP Current Condition Start: 04/13/24 10:14 Freq: NEEDED Status: Active Protocol: Document 04/13/24 10:40 MB (Rec: 04/13/24 11:35 MB [id number]) Physical Therapy Current Condition Current Condition Evaluation Date 04/13/24 Treatment Diagnosis Fall, left femure intertrochanteric fx s/p ORIF M3 PT-IP Subjective Start: 04/13/24 10:14 Freq: NEEDED Status: Active Protocol: Document 04/13/24 10:40 MB (Rec: 04/13/24 11:35 MB [id number]) Subjective Physical Therapy Visit Type Type Initial Evaluation Visit Start Time 10:40 Visit Stop Time 11:17 Number of INTERIOR DESIGN PROFESSIONAL Visits 0 Physical Therapy Visit Comments Patient Comments Pt with high anxiety about pain and wishes for clear prognosis/plan/how he is going to return to tolerable pain, many questions during assessment and occ decreased receptiveness. nearby during assessment. Therapy Pain Assessment Pain When Pain Assessed During Mobility Pain Present Pain Present Pain Reported Location Left hip Intensity 10 Scale Used Numeric (0 - 10) Description Aching,Acute,Sharp,Shooting, Spasm,Stabbing,With Movement Pain Behaviors Calling Out,Guarding,Holding Area Pain Management Techniques Distraction,Re-positioning M4 PT-IP Mobility and Gait Start: 04/13/24 10:14 Freq: NEEDED Status: Active Protocol: Document 04/13/24 10:40 MB (Rec: 04/13/24 11:35 MB [id number]) PT-Bed Mobility Assessment Rolling Type of Rolling Roll to Right Level of Assist Contact Guard Assistance,1 Person Assistance Supine to Sit Supine to Sit Contact Guard Assistance,1 Person Assistance,Head of Bed Elevated,Bedrails Scooting Scooting to Edge of Bed Contact Guard Assistance PT-Transfer Assessment Sit to and From Stand Sit to and from Stand Maximum Assistance,2 Person Assistance,Use of Upper Extremities Equipment Transfer Assistive Device Gait Belt,Front Wheeled Walker Orthotic/Prosthetic Devices or Brace: No Transfers Transfer Destination Chair Transfer Technique Step-to gait Transfer Ability Level of Assist Maximum Assistance,2 Person Assistance,Use of Upper Extremities Comments Mobility Comments PT loops gait belt so that pt can use it around left foot to move left leg to EOB, which he does. Frequent encouragement during bed mobility and HOB increased and cues to use HOB bed rail. Pt frequently screaming out and anxious about left hip pain with mobility. +2 max A that includes constant cueing for hand placement and step-to stepping technique to help protect leg and decrease pain with movement. Gait Assessment Gait Gait Assistance Required: Maximum Assistance,2 Person Assist Distance (Feet) 3 Assistive Devices Assistive Device Gait Belt,Front Wheeled Walker Orthotic/Prosthetic Devices or Brace: No Gait Deviations General Gait Pattern Antalgic,Decreased Stride Length,Decreased Feet Clearance,Flexed Trunk,Step-to Gait,Wide Based Gait Factors Limiting Gait Function Factors Limiting Gait Function Decreased Activity Tolerance, Decreased Strength,Difficulty Following Directions, Incoordination,Limited Range of Motion,Pain,Poor Balance, Poor Safety Awareness Comments Gait Comments Cueing to move walker forward first, then left and then right foot for forward gait and reverse for retropulsion to help stepping tolerance POD1 PT-Balance Assessment Sitting Balance and Reactions Static Sitting Balance Ability Fair Dynamic Sitting Balance Ability Fair Standing Balance and Reactions Static Standing Balance Ability Fair Dynamic Standing Balance Ability Poor Device Used RW M5 PT-IP Objective Assessments Start: 04/13/24 10:14 Freq: NEEDED Status: Active Protocol: Document 04/13/24 10:40 MB (Rec: 04/13/24 11:35 MB [id number]) Orientation Orientation/Cognition Level of Alertness Alert Orientation Name,Age,Birthday,Month,Date, Year,Day of Week,Place, Situation Language Function Ability No Deficits Noted Safety Awareness Decreased Safety Awareness Memory Description No Deficits Noted Gross Range of Motion Upper Extremity ROM Impairments Defer to OT Lower Extremity ROM Assessment Left Impaired Impairments High pain left hip, ankle and toes are normal Strength Lower Extremity Strength Assessment Left Impaired Knee R knee 5/5 and left NT Ankle R ankle DF 5/5, left 4+/5; B great toe extension 4+/5 Coordination Assessment Gross Coordination Gross Coordination Impaired Sensation Assessment Sensation Gross Sensation WNL Muscle Tone Muscle Tone WNL Yes M6 PT-IP Treatment Start: 04/13/24 10:14 Freq: NEEDED Status: Active Protocol: Document 04/13/24 10:40 MB (Rec: 04/13/24 11:35 MB [id number]) Physical Therapy Treatment Exercises Exercises Ankle Pumps,Gluteal Sets,Quad Sets Education Education Provided Weight Bearing Status,Safety Other Treatments Other Treatment Performed Extensive education to pt and about recommendations, likely progression of mobility M7 PT-IP Assessment and Plan Start: 04/13/24 10:14 Freq: NEEDED Status: Active Protocol: Document 04/13/24 10:40 MB (Rec: 04/13/24 11:35 MB [id number]) PT Summary Assessment and Plan Potential Rehabilitation Potential Fair Status of Condition at Evaluation Evolving Summary Impairments Pain,ROM,Strength,Balance, Coordination,Bed Mobility, Transfers,Gait,Activity Tolerance Progress Towards Goals Slow Progress due to Pain Assessment Summary Pt is a 69 y/o male presenting with high anxiety about high pain in left hip with mobility and also anxiety about if pain will improve and when he can go home. He requires cues and encouragement for bed mobility with HOB increased, use of gait belt to move left foot and CGA. +2 max A and cues for hand placement and stepping for transfers and gait with use of RW. Currently most appropriate for SNF at d /c. Extensive discussion and ed to pt and . Occ, pt does not seem receptive to education. Goals Bed Mobility Goal Independent Transfer Goal Standby Assistance,Front Wheeled Walker Gait Goal Standby Assistance,Front Wheel Walker Gait Distance 75 Days to Meet Goals 5 Frequency of Treatment Other frequency 1-2x/day Treatment Plan Physical Therapy Treatment Plan Bed Mobility Training,Transfer Training,Gait Training, Therapeutic Exercise,Balance Retraining,Post Op Education, Discharge Planning,Hot or Cold Pack,Neuromuscular Re-ed, Coordination Retraining,Manual Therapy Weight Bearing Status Weight Bearing Status Weight Bear as Tolerated Allowed Weight Bearing Amount (enter % LLE or #) (%) Recommendations To Nursing Amount of Assist Needed 2 Person Assist Discharge Recommendations PT Discharge Recommendations SNF Rehab Transportation Needs at Discharge Wheelchair/Cabulance
--- NOTE | 2024-04-13 11:59 | CM.DPNOTE ---
Addendum entered by REESE Wall 04/13/24 15:36: Per Tala at , can accept, [employer] auth pending. CAR WASH MANAGER updated partner Violeta Violeta plans to tour facility this afternoon. SL Original Note: DCP Note CAR WASH MANAGER reviewed EMR. Per PT/OT, rec SNF. per OT, pt hesitant to agree to SNF, max Ax2, spouse working on getting walker/toilet raisers. CAR WASH MANAGER met with pt and spouse in room. Confirm preference is to dc home but open to SNF referral. CAR WASH MANAGER reviewed options for SNFs that take pt's [employer], preference is [facility] and then next closest option to [place] as backup. CAR WASH MANAGER answered questions about SNF to best of ability. CAR WASH MANAGER spoke with Tala from [facility], kindly agreed to review and submit for auth. P: home with spouse vs dc to [facility], pending auth/acceptance/pt preference. PASRR needed. CM team will continue to follow closely REESE Wall
--- NOTE | 2024-04-13 13:31 | PM.PNPO.1 ---
Subjective Subjective Date Patient Seen: 04/13/24 Time Patient Seen: 13:31 Interval history: Mr. Manrique is a 69 yo M with chronic idiopathic ataxia with ground level fall in the bathroom into his bathtub. He sustained left intertrochanteric hip fracture. On my visit today, Mr Manrique is insistent that he will need to go to rehab prior to going home based on his evaluation w/ PT today. He said he needed quite a bit of assistance and had significant pain with weightbearing. Exam Vital Signs (past 8 hours): - 04/13/24 05:35 04/13/24 08:00 04/13/24 08:01 Temperature 97.7 F 98.3 F Pulse Rate 72 80 Respiratory Rate 18 20 Blood Pressure 159/87 H 169/91 H Pulse Oximetry 96 96 96 Oxygen Delivery Method Nasal Cannula Oxygen Flow Rate 2 0 2 Fraction of Inspired Oxygen 28 Fraction of Inspired Oxygen 28 SaO2/FiO2 Ratio 342 Oxygen Delivery Method Nasal Cannula Oxygen Flow Rate 2 Narrative Exam Narrative: 4/5 hip flexors, quadriceps, hamstrings; 5/5 PF, DF, EHL on left. Sensation to light touch intact throughout LLE, calf soft and compressible. Dressings placed intraoperatively are CDI. Objective Labs 04/13/24 05:55 04/13/24 05:55 Labs: Laboratory Results - last 24 hr 04/12/24 04/12/24 04/13/24 04:30 13:20 05:55 WBC 11.5 H RBC 3.51 L Hgb 13.3 L Hct 37.4 L MCV 106.7 H MCH 38.0 H MCHC 35.6 RDW 14.0 Plt Count 290 Sodium 130 L 132 L Potassium 4.3 3.9 Chloride 96 L 99 Carbon Dioxide 27 28 BUN 6 L 10 Creatinine 1.05 0.92 Estimated GFR > 60 > 60 BUN/Creatinine Ratio 5.7 L 10.9 Glucose 177 H 140 H Calcium 7.9 L 7.7 L Magnesium 1.8 Total Bilirubin 0.9 AST 25 ALT 14 Alkaline Phosphatase 64 Total Protein 6.0 L Albumin 3.1 L Globulin 2.9 Albumin/Globulin Ratio 1.1 Vitamin B12 718 Folate 1.7 L PFSH Medical History Cerebellar ataxia GERD without esophagitis Irritable bowel syndrome Coronary artery disease involving [place] coronary artery of [place] heart without angina pectoris Personal history of stroke with current residual effects (~2005) Mixed hyperlipidemia Essential hypertension Coronary artery disease Surgical History S/P foot surgery (~1966) H/O heart artery stent (~08/2016) S/P tonsillectomy (~1962) Social History household members: spouse Smoking Status: Former smoker Assessment & Plan Post-op Assessment and plan (1) Status post hip surgery: Assessment and Plan narrative: 1) WBAT to LLE, walker at all times. 2) ASA 81mg BID x 6 weeks for VTE prophylaxis. 3) F/u w/ ortho in 2 weeks for wound check, in 6 weeks w/ Dr Greene for repeat imaging. 4) Disposition, pain control per hospitalist service. Postoperative Procedures: Procedures Operation Date: 04/12/24 10:00 Actual Procedure Side Surgeon p Intramedullary Nailing Femur Left Cinthya Greene MD Postoperative day: 1
--- NOTE | 2024-04-13 14:10 | PC.NURSE ---
Patient is difficult with care, he wants to do everything his own way. He is reasonable after you explain what you are doing. His dressing to left hip is cdi, omayra bean is working well for his discomfort and he can have this every three hours. Up with physical therapy and back to bed with this RN and patient tech, patient did not listen to what staff was saying and he layed himself down on the bed in an aggressive manner. He will most likely go to a SNF for some rehab. Resting comfortably now.
[2024-04-13 16:00] VITALS: BP 149/89; PULSE 77; RESP 14; TEMP 36.7; O2SAT 94
--- NOTE | 2024-04-13 19:00 | P.PN_ITS ---
Subjective Subjective Interval history: From night doctor: 69 y/o with PMH of HTN, CAD, HLD, GERD, Hx of CVA, cerebellar ataxia and prior falls, sustained fall in the bathroom and fractured left hip. His is now s/p repair. Pain control has been difficult. S: continues to struggle with pain, though in change from oxycodone to dilaudid he has much better relief today. Exam Vital Signs (past 8 hours): - 04/13/24 16:00 Temperature 98.1 F Pulse Rate 77 Respiratory Rate 14 Blood Pressure 149/89 H Pulse Oximetry 94 Oxygen Flow Rate 0 Fraction of Inspired Oxygen 28 SaO2/FiO2 Ratio 342 Oxygen Delivery Method Nasal Cannula Oxygen Flow Rate 0 Narrative Exam Narrative: NAD, alert and oriented. Fluent speech. Lungs are clear, normal rate and effort. Heart is regular, no murmur gallop or rub. Abdomen is soft, non distended. Extremities are free of edema. Objective Labs 04/13/24 05:55 04/13/24 05:55 Labs: Laboratory Results - last 24 hr 04/12/24 04/13/24 04:30 05:55 WBC 11.5 H RBC 3.51 L Hgb 13.3 L Hct 37.4 L MCV 106.7 H MCH 38.0 H MCHC 35.6 RDW 14.0 Plt Count 290 Sodium 132 L Potassium 3.9 Chloride 99 Carbon Dioxide 28 BUN 10 Creatinine 0.92 Estimated GFR > 60 BUN/Creatinine Ratio 10.9 Glucose 140 H Calcium 7.7 L Magnesium 1.8 Total Bilirubin 0.9 AST 25 ALT 14 Alkaline Phosphatase 64 Total Protein 6.0 L Albumin 3.1 L Globulin 2.9 Albumin/Globulin Ratio 1.1 Vitamin B12 718 Folate 1.7 L PFSH Medical History Cerebellar ataxia GERD without esophagitis Irritable bowel syndrome Coronary artery disease involving [place] coronary artery of [place] heart without angina pectoris Personal history of stroke with current residual effects (~2005) Mixed hyperlipidemia Essential hypertension Coronary artery disease Surgical History S/P foot surgery (~1966) H/O heart artery stent (~08/2016) S/P tonsillectomy (~1962) Social History household members: spouse Smoking Status: Former smoker Assessment & Plan Assessment & Plan narrative: 1. Lt Intertrochanteric Fracture, present on admission and active - s/p repair with orthopedics on 04/12/24. - PT / OT recommending SNF. - will see if improved pain control with change to dilaudid today. 2. Hypokalemia / Hypomagnesemia/hyponatremia, present on admission and active - improved with K at 3.9 today, will continue to follow with labs tomorrow. - Mg okay at 1.8 today. - Na stable in low 130s, asymptomatic. 3. Cerebelar Ataxia, present on admission and stable - longstanding, debilitating, causing fall and hip fracture - follows with neurology - PT, OT 4. HTN, present on admission and active - at home on Lisinopril, ASA, BB, Repatha, fenofibrate 5. CAD, present on admission and active. 6. Hx of CVA, present on admission and active 7. Bilateral Carotid Stenosis, present on admission and active 8. Macrocytosis, present on admission and active - B12 wnl, FA low 9. Mixed HLD, present on admission and stable - intolerant of statins, on monthly Repatha and fenofibrate 10. GERD, present on admission stable - PPI 11. Impaired Glucose Tolerance, present on admission and stable. - A1C 5.0% PLAN: -aspirin b.i.d. for prophylaxis postoperatively. -replaced oxycodone with hydromorphone PO today. Will continue for pain control now. -folic acid supplementation. -continue home blood pressure medications after surgery and other routine medications. DVT prophylaxis -SCDs Full code Inpatient status, likely will need SNF in 1-2 more days. THEODORA is 04/15. Time-Based Coding :: [TOTAL MINUTES] spent with patient and on the chart (including review of chart, obtaining history, exam, reviewing outside data, placing orders, documenting exam and treatment plan, and counseling patient) on [DATE].
[2024-04-13 20:00] VITALS: BP 139/74; PULSE 74; RESP 12; TEMP 36.5; O2SAT 94
[2024-04-13] MEDS: SENNOSIDES 8.6 MG TABLET 17.2 MG PO (21:13)
[2024-04-14] VITALS: BP 152/75; PULSE 76; TEMP 36.9; O2SAT 96
[2024-04-14] MEDS: HYDROMORPHONE 2 MG TABLET PO ×4 (01:01→20:56)
[2024-04-14 05:00] VITALS: BP 119/99; PULSE 79; RESP 18; TEMP 36.9; O2SAT 95
[2024-04-14 06:20] LABS: Hematocrit 34.4 % (41-53); Hemoglobin 12.3 g/dL (13.5-17.5); Mean Corpuscular HGB Conc 35.8 % (30-36); Mean Corpuscular Hemoglobin 38.5 PG (26-34); Mean Corpuscular Volume 107.5 fL (80-100); Platelet Count 292 X10^3/uL (150-400); Red Cell Distribution Width 14.3 % (11.6-14.8); White Blood Cell Count 9.5 X10^3/uL (4.5-11.0)
[2024-04-14] MEDS: RABEPRAZOLE 20 MG PO (06:43)
[2024-04-14 06:58] LABS: Alanine Aminotransferase 12 IU/L (<50); Albumin 3.2 g/dL (3.5-5.0); Alkaline Phosphatase 63 U/L (38-126); Aspartate Aminotransferase 30 IU/L (17-59); BUN Creatinine Ratio 12.3 (6-22); Bilirubin Total 1.2 mg/dL (0.2-1.3); Blood Urea Nitrogen 10 mg/dL (9-20); Calcium 8.1 mg/dL (8.4-10.2); Carbon Dioxide 28 mmol/L (22-32); Chloride 101 mmol/L (98-107); Estimated Glomerular Filt Rate > 60 mL/min (>60); Globulin 3.1 g/dL (1.7-4.1); Glucose 117 mg/dL (80-110); HEMOLYSIS < 15 (0-50); Magnesium 1.8 mg/dL (1.6-2.3); Potassium 3.8 mmol/L (3.4-5.1); Sodium 131 mmol/L (137-145); Total Protein 6.3 g/dL (6.3-8.2)
[2024-04-14 08:39] VITALS: BP 158/82; PULSE 71; RESP 19; TEMP 36.6; O2SAT 96
[2024-04-14] MEDS: polyethylene glycoL 3350 17 GM POWD.PACK PO (08:41)
[2024-04-14] MEDS: ACETAMINOPHEN 325 MG TABLET 650 MG PO (08:42)
[2024-04-14] MEDS: ASPIRIN EC 81 MG TABLET PO ×2 (08:42→20:56)
[2024-04-14] MEDS: lisinopriL 20 MG TABLET PO (08:43)
[2024-04-14] MEDS: METOPROLOL IR 25 MG TABLET PO (08:43)
[2024-04-14] MEDS: DOCUSATE 100 MG CAPSULE PO (08:43)
[2024-04-14] MEDS: FENOFIBRATE, MICRONIZED 67 MG CAPSULE PO ×2 (08:43→20:56)
--- NOTE | 2024-04-14 10:45 | PT.IPTN ---
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) Essential (primary) hypertension (04/11/24) Atherosclerotic heart disease of [place] coronary artery without angina pectoris (04/11/24) Gastro-esophageal reflux disease without esophagitis (04/11/24) Impaired glucose tolerance (oral) (04/11/24) Fracture of unspecified part of neck of left femur, initial encounter for closed fracture (04/11/24) Other specified postprocedural states (04/11/24) Surgery Performed Operation Date: 04/12/24 10:00 Actual Procedures p Intramedullary Nailing Femur(Left) - Cinthya Greene MD Physical Therapy Treatment Note M2 PT-IP Current Condition Start: 04/13/24 10:14 Freq: NEEDED Status: Active Protocol: Document 04/13/24 10:40 MB (Rec: 04/13/24 11:35 MB [id number]) Physical Therapy Current Condition Current Condition Evaluation Date 04/13/24 Treatment Diagnosis Fall, left femure intertrochanteric fx s/p ORIF M3 PT-IP Subjective Start: 04/13/24 10:14 Freq: NEEDED Status: Active Protocol: Document 04/14/24 11:54 TS (Rec: 04/14/24 12:16 TS [id number]) Subjective Physical Therapy Visit Type Type Treatment Note Visit Start Time 10:45 Visit Stop Time 11:17 Number of LIBERAL ARTS TEACHER Visits 1 Physical Therapy Visit Comments Patient Comments Pt reports having high amounts of pain, he is agreeable to PT. Therapy Pain Assessment Pain When Pain Assessed During Mobility Pain Present Pain Present Pain Reported Location Left hip Intensity 9 Scale Used Numeric (0 - 10) Pain Management Techniques Distraction,Re-positioning M4 PT-IP Mobility and Gait Start: 04/13/24 10:14 Freq: NEEDED Status: Active Protocol: Document 04/14/24 11:54 TS (Rec: 04/14/24 12:16 TS [id number]) PT-Bed Mobility Assessment Supine to Sit Supine to Sit Minimal Assistance,1 Person Assistance,Head of Bed Elevated,Bedrails Sit to Supine Sit to Supine Moderate Assistance,1 Person Assistance Scooting Scooting to Edge of Bed Contact Guard Assistance PT-Transfer Assessment Sit to and From Stand Sit to and from Stand Maximum Assistance,1 Person Assistance,Use of Upper Extremities Equipment Transfer Assistive Device Gait Belt,Front Wheeled Walker Orthotic/Prosthetic Devices or Brace: No Transfers Transfer Destination Bed,Bedside Commode Transfer Technique Stand Pivot Transfer Ability Level of Assist Maximum Assistance,1 Person Assistance,Use of Upper Extremities Comments Mobility Comments LIBERAL ARTS TEACHER loops gait belt aorund pt' s L foot. Supine to sit Mely for uprighting trunk, pt calls out in pain. STS with FWW MaxA x1, pt cued for STS technique. Stand pivot to commode MaxA x1, pt has difficulty wbering on LLE and requires heavy use of UE's on FWW. STS from commode MaxA x1, pt stand pivots to bed and sidesteps x6 MaxA shuffling feet. Sit to supine into bed ModA, pt assists LLE with gait belt around foot. Pt was left in bed, all needs met. Gait Assessment Gait Gait Assistance Required: Maximum Assistance,1 Person Assist Distance (Feet) 3 Assistive Devices Assistive Device Gait Belt,Front Wheeled Walker Orthotic/Prosthetic Devices or Brace: No Gait Deviations General Gait Pattern Antalgic,Decreased Stride Length,Decreased Feet Clearance,Flexed Trunk,Step-to Gait,Wide Based Gait Factors Limiting Gait Function Factors Limiting Gait Function Decreased Activity Tolerance, Decreased Strength,Difficulty Following Directions, Incoordination,Limited Range of Motion,Pain,Poor Balance, Poor Safety Awareness PT-Balance Assessment Sitting Balance and Reactions Static Sitting Balance Ability Fair Dynamic Sitting Balance Ability Fair Standing Balance and Reactions Static Standing Balance Ability Poor Dynamic Standing Balance Ability Poor Device Used FWW M5 PT-IP Objective Assessments Start: 04/13/24 10:14 Freq: NEEDED Status: Active Protocol: Document 04/13/24 10:40 MB (Rec: 04/13/24 11:35 MB [id number]) Orientation Orientation/Cognition Level of Alertness Alert Orientation Name,Age,Birthday,Month,Date, Year,Day of Week,Place, Situation Language Function Ability No Deficits Noted Safety Awareness Decreased Safety Awareness Memory Description No Deficits Noted Gross Range of Motion Upper Extremity ROM Impairments Defer to OT Lower Extremity ROM Assessment Left Impaired Impairments High pain left hip, ankle and toes are normal Strength Lower Extremity Strength Assessment Left Impaired Knee R knee 5/5 and left NT Ankle R ankle DF 5/5, left 4+/5; B great toe extension 4+/5 Coordination Assessment Gross Coordination Gross Coordination Impaired Sensation Assessment Sensation Gross Sensation WNL Muscle Tone Muscle Tone WNL Yes M6 PT-IP Treatment Start: 04/13/24 10:14 Freq: NEEDED Status: Active Protocol: Document 04/14/24 11:54 TS (Rec: 04/14/24 12:16 TS [id number]) Physical Therapy Treatment Education Education Provided Weight Bearing Status,Safety M7 PT-IP Assessment and Plan Start: 04/13/24 10:14 Freq: NEEDED Status: Active Protocol: Document 04/14/24 11:54 TS (Rec: 04/14/24 12:16 TS [id number]) PT Summary Assessment and Plan Potential Rehabilitation Potential Fair Summary Impairments Pain,ROM,Strength,Balance, Coordination,Bed Mobility, Transfers,Gait,Activity Tolerance Progress Towards Goals Slow Progress due to Pain Assessment Summary Donny continues to make slow progress with his mobility. He is limited by high amounts of pain. He performs bed mobility with some assistance and use of gait belt strap looped aorund foot. He continues to perform transfers with MaxA. He did not progress his gait this session . PT continues to recommend SNF. Goals Bed Mobility Goal Independent Transfer Goal Standby Assistance,Front Wheeled Walker Gait Goal Standby Assistance,Front Wheel Walker Gait Distance 75 Days to Meet Goals 5 Frequency of Treatment Other frequency 1-2x/day Treatment Plan Physical Therapy Treatment Plan Bed Mobility Training,Transfer Training,Gait Training, Therapeutic Exercise,Balance Retraining,Post Op Education, Discharge Planning,Hot or Cold Pack,Neuromuscular Re-ed, Coordination Retraining,Manual Therapy Weight Bearing Status Weight Bearing Status Weight Bear as Tolerated Allowed Weight Bearing Amount (enter % LLE or #) (%) Recommendations To Nursing Amount of Assist Needed 2 Person Assist Discharge Recommendations PT Discharge Recommendations SNF Rehab Transportation Needs at Discharge Wheelchair/Cabulance
--- NOTE | 2024-04-14 11:47 | CM.DPNOTE ---
DCP Note EQUIPMENT SERVICE TECHNICIAN reviewed EMR. Per hospitalist in morning rounds, want to get pain a bit better under control before dc to SNF. maybe later today vs tomorrow. EQUIPMENT SERVICE TECHNICIAN completed PASRR. Per Arianne from [facility] auth pending. Can accept pt Saturday. EQUIPMENT SERVICE TECHNICIAN met with pt and spouse in room. Confirm acceptance to [facility] and that we're waiting on auth. expressed understanding, continued preference is to dc to [facility]. Preference is to dc tomorrow, Saturday. partner preference is to be notified as soon as we know when he will be discharged. EQUIPMENT SERVICE TECHNICIAN agreed to pass that along to the next social insurance analyst. P: dc to [facility] when medically stable/pending auth. transport time pending. PASRR complete. CM team will continue to follow closely REESE Wall
--- NOTE | 2024-04-14 15:28 | OT.IPNOTE ---
Pt states just got up earlier with nursing to the BSC and just wanting to rest. Able to change of the BSC to heavy duty commode for the pt. Pt's states able to get a FWW and wide BSC for pt to use. Pt looking to go to SNF when medically stable. NO charge.
[2024-04-14 16:00] VITALS: BP 128/79; PULSE 73; RESP 16; TEMP 36.3; O2SAT 96
--- NOTE | 2024-04-14 17:32 | PM.PNPO.1 ---
Subjective Subjective Date Patient Seen: 04/14/24 Time Patient Seen: 17:33 Interval history: Patient states that he is doing well. Pain is controlled with oral medications. He has been able to work with physical therapy and ambulate. With assistance is able to use the restroom as own. Plans on being discharged to SNF tomorrow. Denies any new numbness tingling of the lower extremities no nausea or vomiting fever or chills. Exam Vital Signs (past 8 hours): - 04/14/24 16:00 Temperature 97.4 F L Pulse Rate 73 Respiratory Rate 16 Blood Pressure 128/79 Pulse Oximetry 96 Oxygen Flow Rate 0 Fraction of Inspired Oxygen 28 SaO2/FiO2 Ratio 342 Oxygen Delivery Method Room Air Oxygen Flow Rate 0 Narrative Exam Narrative: 5/5 hip flexors, quadriceps, hamstrings; 5/5 PF, DF, EHL bilaterally. Sensation to light touch intact throughout BLE, calf soft and compressible. Dressings placed intraoperatively are CDI. Resp Effort & Inspection: normal respiratory effort and able to speak in complete sentences Objective Labs 04/14/24 05:50 04/14/24 05:50 Labs: Laboratory Results - last 24 hr 04/14/24 05:50 WBC 9.5 RBC 3.20 L Hgb 12.3 L Hct 34.4 L MCV 107.5 H MCH 38.5 H MCHC 35.8 RDW 14.3 Plt Count 292 Sodium 131 L Potassium 3.8 Chloride 101 Carbon Dioxide 28 BUN 10 Creatinine 0.81 Estimated GFR > 60 BUN/Creatinine Ratio 12.3 Glucose 117 H Calcium 8.1 L Magnesium 1.8 Total Bilirubin 1.2 AST 30 ALT 12 Alkaline Phosphatase 63 Total Protein 6.3 Albumin 3.2 L Globulin 3.1 Albumin/Globulin Ratio 1.0 [facility] Medical History Cerebellar ataxia GERD without esophagitis Irritable bowel syndrome Coronary artery disease involving [place] coronary artery of [place] heart without angina pectoris Personal history of stroke with current residual effects (~2005) Mixed hyperlipidemia Essential hypertension Coronary artery disease Surgical History S/P foot surgery (~1966) H/O heart artery stent (~08/2016) S/P tonsillectomy (~1962) Social History household members: spouse Smoking Status: Former smoker Assessment & Plan Post-op Postoperative Procedures: Procedures Operation Date: 04/12/24 10:00 Actual Procedure Side Surgeon p Intramedullary Nailing Femur Left Cinthya Greene MD Postoperative day: 2 Postoperative status: doing well Postoperative status narrative: Status post hip surgery Postoperative plan: routine post-op care and ambulate Postoperative plan narrative: 1) WBAT to LLE, walker at all times. 2) ASA 81mg BID x 6 weeks for VTE prophylaxis. 3) F/u w/ ortho in 2 weeks for wound check, in 6 weeks w/ Dr Greene for repeat imaging. 4) Disposition, pain control per hospitalist service. Time Spent With Patient Time with patient: less than 15 minutes Quality VTE Deep Vein Thrombosis/Pulmonary Embolism Present on Admission: No
--- NOTE | 2024-04-14 17:51 | PM.PN.1 ---
Subjective Subjective Interval history: From night doctor: 69 y/o with PMH of HTN, CAD, HLD, GERD, Hx of CVA, cerebellar ataxia and prior falls, sustained fall in the bathroom and fractured left hip. His is now s/p repair. Pain control is a bit better today, though struggled through with therapy today. Exam Vital Signs (past 8 hours): - 04/14/24 16:00 Temperature 97.4 F L Pulse Rate 73 Respiratory Rate 16 Blood Pressure 128/79 Pulse Oximetry 96 Oxygen Flow Rate 0 Fraction of Inspired Oxygen 28 SaO2/FiO2 Ratio 342 Oxygen Delivery Method Room Air Oxygen Flow Rate 0 Narrative Exam Narrative: NAD, alert and oriented. Fluent speech. Lungs are clear, normal rate and effort. Heart is regular, no murmur gallop or rub. Abdomen is soft, non distended. Extremities are free of edema. Objective Labs 04/14/24 05:50 04/14/24 05:50 Labs: Laboratory Results - last 24 hr 04/14/24 05:50 WBC 9.5 RBC 3.20 L Hgb 12.3 L Hct 34.4 L MCV 107.5 H MCH 38.5 H MCHC 35.8 RDW 14.3 Plt Count 292 Sodium 131 L Potassium 3.8 Chloride 101 Carbon Dioxide 28 BUN 10 Creatinine 0.81 Estimated GFR > 60 BUN/Creatinine Ratio 12.3 Glucose 117 H Calcium 8.1 L Magnesium 1.8 Total Bilirubin 1.2 AST 30 ALT 12 Alkaline Phosphatase 63 Total Protein 6.3 Albumin 3.2 L Globulin 3.1 Albumin/Globulin Ratio 1.0 PFSH Medical History Cerebellar ataxia GERD without esophagitis Irritable bowel syndrome Coronary artery disease involving [place] coronary artery of [place] heart without angina pectoris Personal history of stroke with current residual effects (~2005) Mixed hyperlipidemia Essential hypertension Coronary artery disease Surgical History S/P foot surgery (~1966) H/O heart artery stent (~08/2016) S/P tonsillectomy (~1962) Social History household members: spouse Smoking Status: Former smoker Assessment & Plan Assessment & Plan narrative: 1. Lt Intertrochanteric Fracture, present on admission and active - s/p repair with orthopedics on 04/12/24. - PT / OT recommending SNF. - improved pain today, will continue to adjust as needed. 2. Hypokalemia / Hypomagnesemia/hyponatremia, present on admission and active - improved and stable K today at 3.8, will continue to follow with labs tomorrow. - Mg okay at 1.8 today. - Na stable in low 130s, asymptomatic. 3. Cerebelar Ataxia, present on admission and stable - longstanding, debilitating, causing fall and hip fracture - follows with neurology - PT, OT 4. HTN, present on admission and active - at home on Lisinopril, ASA, BB, Repatha, fenofibrate 5. CAD, present on admission and active. 6. Hx of CVA, present on admission and active 7. Bilateral Carotid Stenosis, present on admission and active 8. Macrocytosis, present on admission and active - B12 wnl, FA low 9. Mixed HLD, present on admission and stable - intolerant of statins, on monthly Repatha and fenofibrate 10. GERD, present on admission stable - PPI 11. Impaired Glucose Tolerance, present on admission and stable. - A1C 5.0% PLAN: -aspirin b.i.d. for prophylaxis postoperatively. -replaced oxycodone with hydromorphone PO with improvement. -folic acid supplementation. -continue home blood pressure medications after surgery and other routine medications. -likely SNF tomorrow, awaiting authorization. DVT prophylaxis -SCDs Full code Inpatient status, likely SNF tomorrow. THEODORA is 04/15. Time-Based Coding :: [TOTAL MINUTES] spent with patient and on the chart (including review of chart, obtaining history, exam, reviewing outside data, placing orders, documenting exam and treatment plan, and counseling patient) on [DATE]. Quality VTE Deep Vein Thrombosis/Pulmonary Embolism Present on Admission: No
[2024-04-14 20:00] VITALS: BP 134/79; PULSE 70; RESP 12; TEMP 36.2; O2SAT 96
[2024-04-15 04:00] VITALS: BP 146/81; PULSE 78; RESP 16; TEMP 36.4; O2SAT 97
[2024-04-15] MEDS: RABEPRAZOLE 20 MG PO (06:00)
--- NOTE | 2024-04-15 08:13 | PM.PNPO.1 ---
Subjective Subjective Interval history: Marty is a 69 year old male who is POD#3 s/p left femur ORIF with IMN for a left intertrochanteric femur fracture done by Dr. Greene. This morning patient reports he is still having a lot of pain, he is having a hard time mobilizing w/ PT d/t pain. Lives at home with his but plans to d/c to SNF d/t poor mobility. Denies fever, chills, chest pain, SOB, nausea, vomiting. Exam Vital Signs (past 8 hours): - 04/15/24 04:00 Temperature 97.6 F Pulse Rate 78 Respiratory Rate 16 Blood Pressure 146/81 H Pulse Oximetry 97 Oxygen Flow Rate 0 Fraction of Inspired Oxygen 28 SaO2/FiO2 Ratio 342 Oxygen Delivery Method Room Air Oxygen Flow Rate 0 Narrative Exam Narrative: Patient lying comfortably in bed during our interview today. No acute distress. AOx3. Grossly normal alignment of the LLE with moderate swelling throughout the LLE. 5/5 strength with DF, PF, EHL bilaterally. Gross sensation intact throughout bilateral lower extremities. Calves soft and non-tender bilaterally. SCDs are on and functioning. Brisk capillary refill, pulses intact. Post-surgical dressing/Aquacel dressing clean, dry and intact over the left thigh without drainage. Objective Labs 04/14/24 05:50 04/14/24 05:50 PFSH Medical History Cerebellar ataxia GERD without esophagitis Irritable bowel syndrome Coronary artery disease involving [place] coronary artery of [place] heart without angina pectoris Personal history of stroke with current residual effects (~2005) Mixed hyperlipidemia Essential hypertension Coronary artery disease Surgical History S/P foot surgery (~1966) H/O heart artery stent (~08/2016) S/P tonsillectomy (~1962) Social History household members: spouse Smoking Status: Former smoker Assessment & Plan Post-op Postoperative Procedures: Procedures Operation Date: 04/12/24 10:00 Actual Procedure Side Surgeon p Intramedullary Nailing Femur Left Cinthya Greene MD Postoperative plan narrative: 1) Discharge disposition per Medicine, likely SNF today. 2) Continue multimodal pain management with ice to the hip for additional pain control. 3) ASA b.i.d. for DVT prophylaxis. 4) Continue to work w/ physical therapy to improve mobility. WBAT. 5) Keep dressing intact, clean, dry until 2 week postop appointment. No soaking the incision site in pools or tubs. No topical ointments or creams to the incision site. 6) Follow up at [facility] in 2 weeks for a postop appointment and wound check. All patient's questions were answered, they demonstrates understanding and are in agreement with the plan. Call our office if any questions or concerns arise. Quality VTE Deep Vein Thrombosis/Pulmonary Embolism Present on Admission: No
[2024-04-15] MEDS: DOCUSATE 100 MG CAPSULE PO ×2 (09:11→21:25)
[2024-04-15] MEDS: HYDROMORPHONE 2 MG TABLET PO ×3 (09:11→21:24)
[2024-04-15] MEDS: ACETAMINOPHEN 325 MG TABLET 650 MG PO (09:12)
[2024-04-15] MEDS: ASPIRIN EC 81 MG TABLET PO ×2 (09:13→21:26)
[2024-04-15] MEDS: FENOFIBRATE, MICRONIZED 67 MG CAPSULE PO ×2 (09:13→21:25)
[2024-04-15] MEDS: lisinopriL 20 MG TABLET PO (09:13)
[2024-04-15] MEDS: METOPROLOL IR 25 MG TABLET PO (09:13)
--- NOTE | 2024-04-15 10:45 | PT-IP ANOTE ---
Pt refused PT at this time. Would like to be seen around 12:30 this afternoon.
--- NOTE | 2024-04-15 12:36 | PT.IPTN ---
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) Essential (primary) hypertension (04/11/24) Atherosclerotic heart disease of [place] coronary artery without angina pectoris (04/11/24) Gastro-esophageal reflux disease without esophagitis (04/11/24) Impaired glucose tolerance (oral) (04/11/24) Fracture of unspecified part of neck of left femur, initial encounter for closed fracture (04/11/24) Other specified postprocedural states (04/11/24) Surgery Performed Operation Date: 04/12/24 10:00 Actual Procedures p Intramedullary Nailing Femur(Left) - Cinthya Greene MD Physical Therapy Treatment Note M2 PT-IP Current Condition Start: 04/13/24 10:14 Freq: NEEDED Status: Active Protocol: Document 04/13/24 10:40 MB (Rec: 04/13/24 11:35 MB [id number]) Physical Therapy Current Condition Current Condition Evaluation Date 04/13/24 Treatment Diagnosis Fall, left femure intertrochanteric fx s/p ORIF M3 PT-IP Subjective Start: 04/13/24 10:14 Freq: NEEDED Status: Active Protocol: Document 04/15/24 16:28 TS (Rec: 04/15/24 16:43 TS [id number]) Subjective Physical Therapy Visit Type Type Treatment Note Visit Start Time 12:36 Visit Stop Time 13:14 Number of ADOLESCENT COUNSELOR Visits 2 Physical Therapy Visit Comments Patient Comments Pt would like to get on commode, he is agreeable to PT . Therapy Pain Assessment Pain When Pain Assessed During Mobility Pain Present Pain Present Pain Reported M4 PT-IP Mobility and Gait Start: 04/13/24 10:14 Freq: NEEDED Status: Active Protocol: Document 04/15/24 16:28 TS (Rec: 04/15/24 16:43 TS [id number]) PT-Bed Mobility Assessment Supine to Sit Supine to Sit Contact Guard Assistance,1 Person Assistance,Head of Bed Elevated,Bedrails Sit to Supine Sit to Supine Minimal Assistance,1 Person Assistance Scooting Scooting to Edge of Bed Contact Guard Assistance PT-Transfer Assessment Sit to and From Stand Sit to and from Stand Moderate Assistance,2 Person Assistance Equipment Transfer Assistive Device Gait Belt,Front Wheeled Walker Orthotic/Prosthetic Devices or Brace: No Transfers Transfer Destination Bed,Bedside Commode Transfer Technique Stand Step Pivot Transfer Ability Level of Assist Moderate Assistance,2 Person Assistance Comments Mobility Comments ADOLESCENT COUNSELOR loops gait belt aorund LLE for pt assisting LE to EOB. CGA for supine to sit with HOB elevated, pt requires extra time to complete task. STS ModA x2 with FWW. Stand step pivot to commode ModA x2 with cues for FWW management. STS from commode with FWW MaxA. Stand step pivot to commode ModA x2, pt demonstrates increased foot clearance. Sit to supine into bed Mely for LLE into bed. Pt was left in bed, OT in room. Gait Assessment Gait Gait Assistance Required: Moderate Assistance,2 Person Assist Distance (Feet) 3 Able to Maintain Weight Bearing Status Yes During Gait Assistive Devices Assistive Device Gait Belt,Front Wheeled Walker Orthotic/Prosthetic Devices or Brace: No Gait Deviations General Gait Pattern Antalgic,Decreased Stride Length,Decreased Feet Clearance,Flexed Trunk,Step-to Gait,Wide Based Gait Factors Limiting Gait Function Factors Limiting Gait Function Decreased Activity Tolerance, Decreased Strength,Difficulty Following Directions, Incoordination,Limited Range of Motion,Pain,Poor Balance, Poor Safety Awareness PT-Balance Assessment Sitting Balance and Reactions Static Sitting Balance Ability Good Dynamic Sitting Balance Ability Good Standing Balance and Reactions Static Standing Balance Ability Poor Dynamic Standing Balance Ability Poor Device Used FWW M5 PT-IP Objective Assessments Start: 04/13/24 10:14 Freq: NEEDED Status: Active Protocol: Document 04/13/24 10:40 MB (Rec: 04/13/24 11:35 MB [id number]) Orientation Orientation/Cognition Level of Alertness Alert Orientation Name,Age,Birthday,Month,Date, Year,Day of Week,Place, Situation Language Function Ability No Deficits Noted Safety Awareness Decreased Safety Awareness Memory Description No Deficits Noted Gross Range of Motion Upper Extremity ROM Impairments Defer to OT Lower Extremity ROM Assessment Left Impaired Impairments High pain left hip, ankle and toes are normal Strength Lower Extremity Strength Assessment Left Impaired Knee R knee 5/5 and left NT Ankle R ankle DF 5/5, left 4+/5; B great toe extension 4+/5 Coordination Assessment Gross Coordination Gross Coordination Impaired Sensation Assessment Sensation Gross Sensation WNL Muscle Tone Muscle Tone WNL Yes M6 PT-IP Treatment Start: 04/13/24 10:14 Freq: NEEDED Status: Active Protocol: Document 04/15/24 16:28 TS (Rec: 04/15/24 16:43 TS [id number]) Physical Therapy Treatment Education Education Provided Weight Bearing Status,Safety M7 PT-IP Assessment and Plan Start: 04/13/24 10:14 Freq: NEEDED Status: Active Protocol: Document 04/15/24 16:28 TS (Rec: 04/15/24 16:43 TS [id number]) PT Summary Assessment and Plan Potential Rehabilitation Potential Fair Summary Impairments Pain,ROM,Strength,Balance, Coordination,Bed Mobility, Transfers,Gait,Activity Tolerance Progress Towards Goals Slow Progress due to Pain Assessment Summary Donny continues to make slow progress with his mobility. He requires decreased assist with bed mobility this session but requires extra time to complete tasks. He demonstrates increased foot clearance on L side with transfer from commode. His pain continues to be high. PT is recommending SNF. Goals Bed Mobility Goal Independent Transfer Goal Standby Assistance,Front Wheeled Walker Gait Goal Standby Assistance,Front Wheel Walker Gait Distance 75 Days to Meet Goals 5 Frequency of Treatment Other frequency 1-2x/day Treatment Plan Physical Therapy Treatment Plan Bed Mobility Training,Transfer Training,Gait Training, Therapeutic Exercise,Balance Retraining,Post Op Education, Discharge Planning,Hot or Cold Pack,Neuromuscular Re-ed, Coordination Retraining,Manual Therapy Weight Bearing Status Weight Bearing Status Weight Bear as Tolerated Allowed Weight Bearing Amount (enter % LLE or #) (%) Recommendations To Nursing Amount of Assist Needed 2 Person Assist Discharge Recommendations PT Discharge Recommendations SNF Rehab Transportation Needs at Discharge Wheelchair/Cabulance
[2024-04-15 12:46] VITALS: BP 160/96; PULSE 66; RESP 18; TEMP 36.6; O2SAT 94
--- NOTE | 2024-04-15 13:17 | OT.IP.TRT ---
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) Essential (primary) hypertension (04/11/24) Atherosclerotic heart disease of [place] coronary artery without angina pectoris (04/11/24) Gastro-esophageal reflux disease without esophagitis (04/11/24) Impaired glucose tolerance (oral) (04/11/24) Fracture of unspecified part of neck of left femur, initial encounter for closed fracture (04/11/24) Other specified postprocedural states (04/11/24) Surgery Performed Operation Date: 04/12/24 10:00 Actual Procedures p Intramedullary Nailing Femur(Left) - Cinthya Greene MD Occupational Therapy Treatment Note M2 OT-IP Current Condition Start: 04/13/24 12:38 Freq: Status: Active Protocol: Document 04/13/24 12:38 CGR (Rec: 04/13/24 12:48 CGR [id number]) Occupational Therapy Current Condition Current Condition Evaluation Date 04/13/24 Treatment Diagnosis GLF with L femur fx, 04/12 ORIF w/ IM nailing. Diagnosis Onset Date 04/11/24 Weight Bearing Status Weight Bearing Status Weight Bear as Tolerated M3 OT- IP Subjective and Pain Start: 04/13/24 12:38 Freq: Status: Active Protocol: Document 04/15/24 13:19 [facility] (Rec: 04/15/24 13:29 [facility] [id number]) OT- Subjective Occupational Therapy Visit Type Type Treatment Note Visit Start Time 12:36 Visit Stop Time 13:17 Occupational Therapy Visit Comments Patient Comments Pt agreed to try to get up to use the BSC. Patient/Caregiver Goals TO get better. OT Pain Assessment Pain When Pain Assessed During Mobility Pain Present Pain Present Pain Reported Location Left hip Pain Behaviors Facial Grimacing,Guarding, Holding Area,Wincing M4 OT- IP ADL's Start: 04/13/24 12:38 Freq: Status: Active Protocol: Document 04/15/24 13:19 [facility] (Rec: 04/15/24 13:29 [facility] [id number]) OT [id number]-Covmbja Comments OT Self-Feeding Comments not meal time OT ADL-Grooming Comments OT Grooming Comments Pt states did earlier. Pt not wanting to do at this time and refusing. OT ADL-Oral Care Comments Oral Care Comments Pt refused. OT ADL-Dressing General Eval Lower Body Dressing Ability Total Assistance Areas Needing Assistance Socks OT ADL-Toileting Comments OT Toileting Comments At this time pt will need assist for hygiene needs. OT ADL-Bathing Bathing Type Bathing Type Sponge Bath General Evaluation Bathing Ability Maximal Assistance Comments OT Bathing Comments Pt needing assist for most of sponge bathing needs at this time. M5 OT- IP IADL's Start: 04/13/24 12:38 Freq: Status: Active Protocol: Document 04/13/24 12:38 [facility] (Rec: 04/13/24 12:48 [facility] [id number]) OT-Instrumental Activities of Daily Living Deficits IADL Deficits Identified No Deficits Home Safety Awareness Awareness of Need for Assistance at Home Good Awareness Ability to Problem Solve Emergency Able to Problem Solve Situations Medication Management Medication Management No Deficits Identified Money Management Money Management No Deficits Identified Meal Preparation Meal Preparation No Deficits Identified Spray Stainer Spray Stainer Caregiver Provides Assist Driving Driving Comments Pt does not drive at baseline. M6 OT- IP Functional Cognition Start: 04/13/24 12:38 Freq: Status: Active Protocol: Document 04/15/24 13:19 [facility] (Rec: 04/15/24 13:29 [facility] [id number]) Cognitive Factors Limiting Selfcare Function Cognitive Comments Cognitive Assessment Comments Pt able to follow commands on his own time, but able to participate well. M7 OT- IP Mobility and Balance Start: 04/13/24 12:38 Freq: Status: Active Protocol: Document 04/15/24 13:19 [facility] (Rec: 04/15/24 13:29 [facility] [id number]) OT- Bed Mobility Assessment Supine to Sit Supine to Sit Assist Contact Guard Assistance,Head of Bed Elevated,Bedrails Scooting Scooting to Edge of Bed Contact Guard Assistance OT-Transfer Assessment Sit to and From Stand Sit to and from Stand Moderate Assistance,2 Person Assistance Transfers Transfer Ability Moderate Assistance,2 Person Assistance Technique Transfer Destination Bed,Chair Transfer Technique Stand Step Pivot Devices Transfer Assistive Devices Gait Belt,Front Wheeled Walker Comments Mobility Comments Pt able to actively pecan picker his LLE better to be able to take a few steps to the BSC and back to bed. CONTINUOUS DRYOUT OPERATOR HELPER able to put in trapeze bar to assist with mobility in bed. OT- Balance Assessment Sitting Balance and Reactions Static Sitting Balance Ability Good Dynamic Sitting Balance Ability Good Standing Balance and Reactions Static Standing Balance Ability Poor Dynamic Standing Balance Ability Poor M8 OT- IP Objective Assessments Start: 04/13/24 12:38 Freq: Status: Active Protocol: Document 04/13/24 12:38 [facility]GR (Rec: 04/13/24 12:48 [facility]GR [id number]) OT Gross Range of Motion Upper Extremity Range of Motion Assessment Within Functional Limits OT Strength Upper Extremity Strength Assessment Within Functional Limits Comments Strength Comments grossly 5/5 OT- Coordination Assessment Upper Extremity Finger to Nose Test Within Functional Limits Finger Tapping Test Within Functional Limits OT-Muscle Tone Assessment Muscle Tone WNL Yes OT Sensation Assessment Edema Edema Absent M9 OT- IP Assessment and Plan Start: 04/13/24 12:38 Freq: Status: Active Protocol: Document 04/15/24 13:19 [facility] (Rec: 04/15/24 13:29 [facility] [id number]) OT Summary Assessment and Plan Potential Rehabilitation Potential Good Analytic Complexity at Evaluation Moderate Summary OT Impairments Pain,Balance,Functional Mobility,Grooming,Dressing, Toileting,Bathing,Toilet Transfers,Shower Transfers, Activity Tolerance Progress Towards Goals Progressing Toward Goals,Slow Progress due to Pain,Slow Progress due to Activity Tolerance Assessment Summary Pt able to transfer to and from the BSC and bed and participated in sponging off and toileting. Pt to go to skilled rehab when medically stable. Goals Grooming Goal Independent Dressing Goal Independent Toileting Goal Independent Bathing Goal Independent Toilet Transfer Goal Independent Shower Transfer Goal Independent Days to Meet Goals 19 Frequency of Treatment Other frequency 5x a week Treatment Plan OT Treatment Plan ADL Training,Functional Mobility,Patient/Family Education,Discharge Planning Other Treatment Recommendations and Next ADLs seated Treatment Focus Discharge Recommendations OT Discharge Recommendations SNF Rehab Transportation Needs at Discharge Wheelchair/Cabulance
--- NOTE | 2024-04-15 14:26 | PM.PN.1 ---
Subjective Subjective Interval history: Marty is a 69 year old male who is s/p left femur ORIF with IMN for a left intertrochanteric femur fracture done by Dr. Greene. Pain control is improved today. Awaiting insurance authorization for SNF. Exam Vital Signs (past 8 hours): - 04/15/24 07:30 04/15/24 12:46 Temperature 97.9 F Pulse Rate 66 Respiratory Rate 18 Blood Pressure 160/96 H Pulse Oximetry 94 Oxygen Delivery Method Room Air Fraction of Inspired Oxygen 28 SaO2/FiO2 Ratio 342 Oxygen Delivery Method Room Air Oxygen Flow Rate 0 Narrative Exam Narrative: NAD, alert and oriented. Fluent speech. Lungs are clear, normal rate and effort. Heart is regular, no murmur gallop or rub. Abdomen is soft, non distended. Extremities are free of edema. Objective Labs 04/14/24 05:50 04/14/24 05:50 [facility] Medical History Cerebellar ataxia GERD without esophagitis Irritable bowel syndrome Coronary artery disease involving [place] coronary artery of [place] heart without angina pectoris Personal history of stroke with current residual effects (~2005) Mixed hyperlipidemia Essential hypertension Coronary artery disease Surgical History S/P foot surgery (~1966) H/O heart artery stent (~08/2016) S/P tonsillectomy (~1963) Social History household members: spouse Smoking Status: Former smoker Assessment & Plan Assessment & Plan narrative: 1. Lt Intertrochanteric Fracture, present on admission and active - s/p repair with orthopedics on 04/12/24. - PT / OT recommending SNF. - improved pain today, will continue to adjust as needed. 2. Hypokalemia / Hypomagnesemia/hyponatremia, present on admission and active - improved and stable K recently. No need for further evaluations. - Mg okay at 1.8 - Na stable in low 130s, asymptomatic. 3. Cerebelar Ataxia, present on admission and stable - longstanding, debilitating, causing fall and hip fracture - follows with neurology - PT, OT 4. HTN, present on admission and active - at home on Lisinopril, ASA, BB, Repatha, fenofibrate 5. CAD, present on admission and active. 6. Hx of CVA, present on admission and active 7. Bilateral Carotid Stenosis, present on admission and active 8. Macrocytosis, present on admission and active - B12 wnl, FA low 9. Mixed HLD, present on admission and stable - intolerant of statins, on monthly Repatha and fenofibrate 10. GERD, present on admission stable - PPI 11. Impaired Glucose Tolerance, present on admission and stable. - A1C 5.0% PLAN: -aspirin b.i.d. for prophylaxis postoperatively. -replaced oxycodone with hydromorphone PO with improvement. -folic acid supplementation. -continue home blood pressure medications after surgery and other routine medications. -likely SNF tomorrow, awaiting authorization. DVT prophylaxis -SCDs Full code Inpatient status, pending insurance auth for SNF. Time-Based Coding :: [TOTAL MINUTES] spent with patient and on the chart (including review of chart, obtaining history, exam, reviewing outside data, placing orders, documenting exam and treatment plan, and counseling patient) on [DATE]. Quality VTE Deep Vein Thrombosis/Pulmonary Embolism Present on Admission: No
[2024-04-15 20:00] VITALS: BP 144/83; PULSE 73; RESP 19; TEMP 36.6; O2SAT 94
[2024-04-15] MEDS: SENNOSIDES 8.6 MG TABLET 17.2 MG PO (21:25)
[2024-04-16] MEDS: RABEPRAZOLE 20 MG 1 EACH PO (06:23)
[2024-04-16 08:30] VITALS: BP 148/83; PULSE 75; RESP 16; TEMP 36.6; O2SAT 93
[2024-04-16] MEDS: FENOFIBRATE, MICRONIZED 67 MG CAPSULE PO (08:34)
[2024-04-16 08:35] VITALS: BP 143/83; PULSE 75
[2024-04-16] MEDS: lisinopriL 20 MG TABLET PO (08:35)
[2024-04-16] MEDS: HYDROMORPHONE 2 MG TABLET PO ×2 (08:36→11:34)
[2024-04-16] MEDS: METOPROLOL IR 25 MG TABLET PO (08:36)
[2024-04-16] MEDS: ASPIRIN EC 81 MG TABLET PO (08:36)
[2024-04-16] MEDS: DOCUSATE 100 MG CAPSULE PO (08:36)
--- NOTE | 2024-04-16 10:33 | PM.PNPO.1 ---
Subjective Subjective Interval history: Marty is a 69 year old male who is POD#4 s/p left femur ORIF with IMN for a left intertrochanteric femur fracture done by Dr. Greene. This morning patient reports he is doing better than yesterday, feels his pain is better controlled this morning. Has been working w/ PT but is still a 2 person assist. Lives at home with his but plans to d/c to SNF d/t poor mobility. Denies fever, chills, chest pain, SOB, nausea, vomiting. Exam Vital Signs (past 8 hours): - 04/16/24 08:30 04/16/24 08:35 Temperature 97.8 F Pulse Rate 75 75 Respiratory Rate 16 Blood Pressure 148/83 H 143/83 H Pulse Oximetry 93 Fraction of Inspired Oxygen 28 SaO2/FiO2 Ratio 342 Oxygen Delivery Method Room Air Oxygen Flow Rate 0 Narrative Exam Narrative: Patient lying comfortably in bed during our interview today. No acute distress. AOx3. Grossly normal alignment of the LLE with moderate swelling throughout the LLE. 5/5 strength with DF, PF, EHL bilaterally. Gross sensation intact throughout bilateral lower extremities. Calves soft and non-tender bilaterally. SCDs are on and functioning. Brisk capillary refill, pulses intact. Post-surgical dressing/Aquacel dressing clean, dry and intact over the left thigh without drainage. Objective Labs 04/14/24 05:50 04/14/24 05:50 PFSH Medical History Cerebellar ataxia GERD without esophagitis Irritable bowel syndrome Coronary artery disease involving [place] coronary artery of [place] heart without angina pectoris Personal history of stroke with current residual effects (~2005) Mixed hyperlipidemia Essential hypertension Coronary artery disease Surgical History S/P foot surgery (~1966) H/O heart artery stent (~08/2016) S/P tonsillectomy (~1962) Social History household members: spouse Smoking Status: Former smoker Assessment & Plan Post-op Postoperative Procedures: Procedures Operation Date: 04/12/24 10:00 Actual Procedure Side Surgeon p Intramedullary Nailing Femur Left Cinthya Greene MD Postoperative plan narrative: 1) Discharge disposition per Medicine, likely d/c to SNF today. 2) Continue multimodal pain management with ice to the hip for additional pain control. 3) ASA b.i.d. for DVT prophylaxis. 4) Continue to work w/ physical therapy to improve mobility. WBAT. 5) Keep dressing intact, clean, dry until 2 week postop appointment. No soaking the incision site in pools or tubs. No topical ointments or creams to the incision site. 6) Follow up at [facility] orthopedics in 2 weeks for a postop appointment and wound check. All patient's questions were answered, he demonstrates understanding and is in agreement with the plan. Call our office if any questions or concerns arise. Quality VTE Deep Vein Thrombosis/Pulmonary Embolism Present on Admission: No
--- NOTE | 2024-04-16 10:40 | CM.DPC ---
DCP Discharge SNF Per MD, pt is medically stable to d/c to SNF today and no identified barriers to discharge. LYRIC confirmed that [facility] can still accept and [employer] auth obtained and they can transport around 1330. LYRIC met bedside with pt and explained role and updated on above and he confirms he remains agreeable to d/c to [facility] today and will let his spouse know. CC Cayla kindly faxing signed med list, script, PASRR, d/c summ and MD orders to [facility] to review. LYRIC updated RN, lasting room supervisor, [facility]. Plan: Patient to d/c to [facility] today via facility van around 1330 before safe return home with spouse. Fauzia Morales, REESE
--- NOTE | 2024-04-16 10:41 | PM.DS.1 ---
History of Present Illness History of Present Illness Date Patient Seen: 04/16/24 Time Patient Seen: 10:41 Chief complaint: GLF L hip pain Narrative: Per admitting provider, 69 y/o with PMH of HTN, CAD, HLD, GERD, Hx of CVA, cerebellar ataxia and prior falls, sustained fall in the bathroom and fractured left hip. A fall was associated with ataxia that is seriously affecting his mobility since several years ago. Followed by neurology. Xray / CT showing comminuted and displaced fracture involving intertrochanteric region of left proximal femur.In addition, he presented hypokalemic and hypomagnesemic. Admitted NPO in anticipation of ORIF in AM. Discharge Providers Provider Date of admission: 04/11/24 22:15 Discharge Date: 04/16/24 Primary care physician: Lawrence Castaneda DO Consults: 04/11/24 22:03 Consult to Orthopedic Surgery Stat Comment: Consulting Provider: Cinthya Greene Reason for consultation: hip fracture Has provider been notified: Yes 04/12/24 12:29 Consult to Discharge Planning Routine Comment: Consult to Occupational Therapy Evaluate & Treat Comment: Physician Instructions: Evaluate and treat Consult to Physical Therapy Evaluate & Treat Comment: Physician Instructions: Evaluate and Treat Discharge provider: Colin Mercado DO Summary Hospital Course Discharge Diagnosis: 1. Lt Intertrochanteric Fracture, present on admission and active, pathologic secondary to osteoporosis. 2. Hypokalemia / Hypomagnesemia/hyponatremia, present on admission and active 3. Cerebelar Ataxia, present on admission and stable 4. HTN, present on admission and active 5. CAD, present on admission and active. 6. Hx of CVA, present on admission and active 7. Bilateral Carotid Stenosis, present on admission and active 8. Macrocytosis, present on admission and active 9. Mixed HLD, present on admission and stable 10. GERD, present on admission stable Hospital Course: This is a 69-year-old male with a past medical history of cerebellar ataxia, hypertension, CAD, CVA, and hyperlipidemia who was admitted with a pathologic (osteoporosis) left intertrochanteric femur fracture. He underwent operative repair with Orthopedics on 04/12. Initially pain control was difficult but after a change to Dilaudid from oxycodone he did much better with therapies. No other changes were recommended to his home medications. Physical and occupational therapy [facility] for [facility] therapies after his surgery to returning home. He also had mild hypokalemia and hypomagnesemia which were repleted over the course of his stay. A1c was also checked due to initially elevated blood glucose and was 5.0. Time Spent with Patient Time spent: Greater than 30 minutes Exam Vital Signs (past 8 hours): - 04/16/24 08:30 04/16/24 08:35 Temperature 97.8 F Pulse Rate 75 75 Respiratory Rate 16 Blood Pressure 148/83 H 143/83 H Pulse Oximetry 93 Fraction of Inspired Oxygen 28 SaO2/FiO2 Ratio 342 Oxygen Delivery Method Room Air Oxygen Flow Rate 0 Narrative Exam Narrative: NAD, alert and oriented. Fluent speech. Lungs are clear, normal rate and effort. Heart is regular, no murmur gallop or rub. Abdomen is soft, non distended. Extremities are free of edema. Objective Labs 04/14/24 05:50 04/14/24 05:50 PFSH Medical History Cerebellar ataxia GERD without esophagitis Irritable bowel syndrome Coronary artery disease involving [place] coronary artery of [place] heart without angina pectoris Personal history of stroke with current residual effects (~2005) Mixed hyperlipidemia Essential hypertension Coronary artery disease Surgical History S/P foot surgery (~1966) H/O heart artery stent (~08/2016) S/P tonsillectomy (~1962) Social History household members: spouse Smoking Status: Former smoker Discharge Plan Discharge Plan Patient Disposition: SNF Provider Discharge Comment: Patient admitted to the hospital with a femur fracture. S/p repair with orthopedics. Transfer to SNF for ongoing PT/OT. Discharge orders & Medications Prescriptions: New aspirin 81 mg Tablet,Delayed Release (Dr/Ec) 81 mg PO BID 42 Days Qty: 84 0RF acetaminophen 325 mg Tablet 650 mg PO Q6H PRN (Reason: Fever/Mild Pain (1-3)) Qty: 60 0RF docusate sodium 100 mg Capsule 100 mg PO BID Qty: 60 0RF polyethylene glycol 3350 17 gram Powder In Packet 17 g PO DAILY Qty: 14 0RF hydromorphone 2 mg Tablet 2 mg PO Q3H PRN (Reason: Pain, Severe (7-10)) 7 Days Qty: 40 0RF sennosides [senna] 8.6 mg Tablet 17.2 mg PO BEDTIME Qty: 60 0RF Continued nitroglycerin 0.4 mg tablet, sublingual 0.4 mg sublingual Q5M PRN (Reason: chest pain) Qty: 90 0RF Rx Instructions: do not exceed 3 doses per episode rabeprazole [AcipHex] 20 mg tablet,delayed release (DR/EC) 20 mg PO DAILY Qty: 90 3RF Rx Instructions: Name Brand Only fenofibrate nanocrystallized 48 mg tablet 48 mg PO BID Qty: 180 3RF lisinopril 20 mg tablet 20 mg PO DAILY Qty: 90 3RF metoprolol tartrate 25 mg tablet 25 mg PO DAILY vitamin B complex [B Complex-Vitamin B12] Tablet 1 tab PO DAILY Changed calcium carbonate 500 mg calcium (1,250 mg) Tablet,Chewable 500 mg PO Q1H PRN (Reason: Heartburn) Qty: 30 0RF Discontinued aspirin 81 mg tablet,delayed release (DR/EC) 81 mg PO DAILY docusate sodium 50 mg Tablet 50 mg PO PRN PRN (Reason: Constipation) Follow up/Referrals: Cinthya Greene MD [Physician] - 2 Weeks (Follow up in office w/ PA or Dr Greene in 2 weeks for wound check. Follow up w/ Dr Greene in 6 weeks for repeat imaging.) Lawrence Castaneda DO [Primary Care Provider] - Discharge Health Status Multidrug resistant organism: No MDRO Precautions: [place] Diet/Activity/Treatments Diet: Diet as Tolerated and Regular Liquid consistency: Normal/Thin Food texture: Regular Activity: Weightbearing as tolerated. Walker at all times. Cold/Heat Therapy: Ice to hip as needed for pain. Special Rehabilitation Services Reason for rehabilitation: Post-operative therapy Rehab type: Physical therapy and Occupational therapy Visit Report/Discharge Packet Instructions: How to Prevent Pressure Ulcers, DI for Hip Fracture, DI for Hypokalemia, How to Prevent Falls, DI for Hypomagnesemia Stand Alone Forms: Patient Portal/API Discharge Data Primary Care Provider: Lawrence Castaneda VTE Deep Vein Thrombosis/Pulmonary Embolism Present on Admission: No
--- NOTE | 2024-04-16 11:59 | PT.IPTN ---
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) Essential (primary) hypertension (04/11/24) Atherosclerotic heart disease of [place] coronary artery without angina pectoris (04/11/24) Gastro-esophageal reflux disease without esophagitis (04/11/24) Impaired glucose tolerance (oral) (04/11/24) Fracture of unspecified part of neck of left femur, initial encounter for closed fracture (04/11/24) Other specified postprocedural states (04/11/24) Surgery Performed Operation Date: 04/12/24 10:00 Actual Procedures p Intramedullary Nailing Femur(Left) - Cinthya Greene MD Physical Therapy Treatment Note M2 PT-IP Current Condition Start: 04/13/24 10:14 Freq: NEEDED Status: Active Protocol: Document 04/13/24 10:40 MB (Rec: 04/13/24 11:35 MB [id number]) Physical Therapy Current Condition Current Condition Evaluation Date 04/13/24 Treatment Diagnosis Fall, left femure intertrochanteric fx s/p ORIF M3 PT-IP Subjective Start: 04/13/24 10:14 Freq: NEEDED Status: Active Protocol: Document 04/16/24 12:56 TS (Rec: 04/16/24 13:07 TS [id number]) Subjective Physical Therapy Visit Type Type Treatment Note Visit Start Time 11:59 Visit Stop Time 12:30 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 Therapy Pain Assessment Pain When Pain Assessed During Mobility Pain Present Pain Present Pain Reported M4 PT-IP Mobility and Gait Start: 04/13/24 10:14 Freq: NEEDED Status: Active Protocol: Document 04/16/24 12:56 TS (Rec: 04/16/24 13:07 TS [id number]) PT-Bed Mobility Assessment Supine to Sit Supine to Sit Standby Assistance,Head of Bed Elevated,Bedrails Scooting Scooting to Edge of Bed Standby Assistance PT-Transfer Assessment Sit to and From Stand Sit to and from Stand Moderate Assistance,Maximum Assistance,1 Person Assistance Equipment Transfer Assistive Device Gait Belt,Front Wheeled Walker Orthotic/Prosthetic Devices or Brace: No Comments Mobility Comments Supine to sit SBA with HOB elevated, pt requires extra time to complete tasks, uses UE's to assist LLE to EOB. STS from bed ModA x1 with FWW. He ambulated ~15' in the room Mely with FWW, requires cues for FWW management, pt tends to be impulsive and lets go of FWW. STS from toilet MaxA with FWW. Pt was left in w/c, all needs met. Gait Assessment Gait Gait Assistance Required: Minimum Assistance,1 Person Assist Distance (Feet) 15 Able to Maintain Weight Bearing Status Yes During Gait Assistive Devices Assistive Device Gait Belt,Front Wheeled Walker Orthotic/Prosthetic Devices or Brace: No Gait Deviations General Gait Pattern Antalgic,Decreased Stride Length,Decreased Feet Clearance,Flexed Trunk,Step-to Gait,Wide Based Gait Factors Limiting Gait Function Factors Limiting Gait Function Decreased Activity Tolerance, Decreased Strength,Difficulty Following Directions, Incoordination,Limited Range of Motion,Pain,Poor Balance, Poor Safety Awareness PT-Balance Assessment Sitting Balance and Reactions Static Sitting Balance Ability Good Dynamic Sitting Balance Ability Good Standing Balance and Reactions Static Standing Balance Ability Poor Dynamic Standing Balance Ability Poor Device Used FWW M5 PT-IP Objective Assessments Start: 04/13/24 10:14 Freq: NEEDED Status: Active Protocol: Document 04/13/24 10:40 MB (Rec: 04/13/24 11:35 MB [id number]) Orientation Orientation/Cognition Level of Alertness Alert Orientation Name,Age,Birthday,Month,Date, Year,Day of Week,Place, Situation Language Function Ability No Deficits Noted Safety Awareness Decreased Safety Awareness Memory Description No Deficits Noted Gross Range of Motion Upper Extremity ROM Impairments Defer to OT Lower Extremity ROM Assessment Left Impaired Impairments High pain left hip, ankle and toes are normal Strength Lower Extremity Strength Assessment Left Impaired Knee R knee 5/5 and left NT Ankle R ankle DF 5/5, left 4+/5; B great toe extension 4+/5 Coordination Assessment Gross Coordination Gross Coordination Impaired Sensation Assessment Sensation Gross Sensation WNL Muscle Tone Muscle Tone WNL Yes M6 PT-IP Treatment Start: 04/13/24 10:14 Freq: NEEDED Status: Active Protocol: Document 04/16/24 12:56 TS (Rec: 04/16/24 13:07 TS [id number]) Physical Therapy Treatment Education Education Provided Weight Bearing Status,Safety M7 PT-IP Assessment and Plan Start: 04/13/24 10:14 Freq: NEEDED Status: Active Protocol: Document 04/16/24 12:56 TS (Rec: 04/16/24 13:07 TS [id number]) PT Summary Assessment and Plan Potential Rehabilitation Potential Fair Summary Impairments Pain,ROM,Strength,Balance, Coordination,Bed Mobility, Transfers,Gait,Activity Tolerance Progress Towards Goals Slow Progress due to Pain Assessment Summary Donny made some progress with his mobility but continues to be limited by pain. He progressed his gait to ~15' Mely with FWW. He demonstrates increased step length and height with his steps. He continues to have high pain. PT continues to recommend SNF. Goals Bed Mobility Goal Independent Transfer Goal Standby Assistance,Front Wheeled Walker Gait Goal Standby Assistance,Front Wheel Walker Gait Distance 75 Days to Meet Goals 5 Frequency of Treatment Other frequency 1-2x/day Treatment Plan Physical Therapy Treatment Plan Bed Mobility Training,Transfer Training,Gait Training, Therapeutic Exercise,Balance Retraining,Post Op Education, Discharge Planning,Hot or Cold Pack,Neuromuscular Re-ed, Coordination Retraining,Manual Therapy Weight Bearing Status Weight Bearing Status Weight Bear as Tolerated Allowed Weight Bearing Amount (enter % LLE or #) (%) Recommendations To Nursing Amount of Assist Needed 2 Person Assist Discharge Recommendations PT Discharge Recommendations SNF Rehab Transportation Needs at Discharge Wheelchair/Cabulance
--- NOTE | 2024-04-16 13:57 | PC.NURSE ---
Patient dressed. Patient d/c'd to [facility] via w/c with his belongings. D/c instructions and home medications sent to designated facility for Patient.
== END 2024-04-16 13:50 | DRG 481 ==
LOC: ED 22:13 → AC 22:16
PROVIDERS: Hospitalist; Orthopaedic Surgery Orthopaedic Surgery of the Spine; Admitting Provider Internal Medicine; Emergency Provider Emergency Medicine; PCP Family Medicine; Referring Provider Emergency Medicine; Visit Provider Internal Medicine
PROC: 0QS706Z Reposition Left Upper Femur with Intramedullary Internal Fixation Device, Open Approach (ICD-10-PCS; CPT 27245; principal; 2024-04-12 10:00)
DX: M80.052A Age-related osteoporosis with current pathological fracture, left femur, initial encounter for fracture (principal); E87.1 Hypo-osmolality and hyponatremia; G11.9 Hereditary ataxia, unspecified; E87.6 Hypokalemia; E83.42 Hypomagnesemia; I10 Essential (primary) hypertension; I25.10 Atherosclerotic heart disease of native coronary artery without angina pectoris; E78.2 Mixed hyperlipidemia; R73.02 Impaired glucose tolerance (oral); K21.9 Gastro-esophageal reflux disease without esophagitis; I65.23 Occlusion and stenosis of bilateral carotid arteries; D75.89 Other specified diseases of blood and blood-forming organs; Z91.81 History of falling; Z86.73 Personal history of transient ischemic attack (TIA), and cerebral infarction without residual deficits; Z87.891 Personal history of nicotine dependence
CPT/HCPCS: 36415; 73502; 73700; 76000; 80048; 80053; 82607; 82746; 83036; 83735; 85025; 85027; 93005; 96374; 96376; 97116; 97161; 97166; 97530; 97535; 99283; 99285; J0136; J0171; J0330; J0690; J1100; J1170; J1885; J2405; J2470; J2704; J3010; J3475

== ENCOUNTER → 2024-05-01 07:16 | Outpatient (CLI) | payer OTHER, SELFPAY ==
[2024-04-20 09:57] VITALS: BMI 30.8
[2024-05-01 08:27] LABS: Appearance Urine UA CLEAR; Bilirubin Urine UA NEGATIVE (NEGATIVE); Color Urine UA YELLOW; Glucose Urine UA NEGATIVE (Negative); Ketones Urine UA NEGATIVE (NEGATIVE); Leukocyte Esterase Urine UA NEGATIVE (NEGATIVE); Nitrite Urine UA NEGATIVE (Negative); Occult Blood Urine UA NEGATIVE (Negative); Protein Urine UA NEGATIVE (Negative); Specific Gravity Urine UA <=1.005 (1.000-1.035); Urobilinogen Urine UA 0.2 E.U./dL (0.2)
[2024-05-01 08:34] LABS: Bacteria Urine None Seen; Culture Indicated Urine Cult Not Indicated; RBC Urine None Seen (0-5/HPF); Squamous Epithelial Cell Urine None Seen (0-5/HPF); Urine Volume 10mL (spun); WBC Urine None Seen (0-5/HPF)
== END ==
PROVIDERS: PCP Family Medicine; Referring Provider Family Medicine; Visit Provider Family Medicine
DX: R30.9 Painful micturition, unspecified (principal)
CPT/HCPCS: 81001